=== PATIENT | female | born 1960 | race Caucasian/White ===

== ENCOUNTER 2019-12-13 11:14 | Outpatient (CLI) | payer MEDICARE, SELFPAY ==
--- NOTE | 2019-12-13 11:59 | ECG_ITS ---
Measurements Intervals [place] Rate: 70 P: 73 LA: 135 QRS: 13 QRSD: 94 T: 86 QT: 388 QTc: 420 Interpretive Statements SINUS RHYTHM POSSIBLE LEFT ATRIAL ENLARGEMENT INCOMPLETE RIGHT BUNDLE BRANCH BLOCK BORDERLINE ST-T WAVE ABNORMALITY- ANT/HIGH LAT LEADS BORDERLINE ECG Electronically Signed On 12-13-2019 12:10:20 CDT by Morales Salazar D.O.
[2019-12-13 12:04] LABS: Hematocrit 42.7 % (37.0-47.0); Hemoglobin 14.1 g/dL (12.0-15.0)
[2019-12-13 12:17] LABS: Albumin Level 4.4 g/dL (3.5-5.1); Estimated Glomerular Filt Rate > 60; Glucose 110 mg/dL (65-105)
== END 2019-12-13 11:15 | disposition home or self-care (01) ==
PROVIDERS: Visit Provider Orthopaedic Surgery
DX: Z01.818 Encounter for other preprocedural examination (principal); M75.121 Complete rotator cuff tear or rupture of right shoulder, not specified as traumatic; I10 Essential (primary) hypertension; J44.9 Chronic obstructive pulmonary disease, unspecified
CPT/HCPCS: 36415; 82040; 82565; 82947; 85014; 85018; 93005

== ENCOUNTER 2019-12-31 11:28 | Outpatient (CLI) | payer MEDICARE, SELFPAY ==
[2019-12-31 13:04] LABS: Basophils Absolute Auto 0.1 K/mm3 (0.0-0.1); Basophils Percent Auto 0.7 % (0.2-1.2); Eosinophils Absolute Auto 0.3 K/mm3 (0-0.3); Eosinophils Percent Auto 2.9 % (0-4.4); Hematocrit 42.5 % (37.0-47.0); Hemoglobin 14.3 g/dL (12.0-15.0); Immature Granulocyte Absolute 0.04 K/mm3 (0.00-0.031); Immature Granulocyte Percent A 0.4 % (0-0.5); Lymphocytes Absolute Auto 3.76 K/mm3 (0.9-3.2); Lymphocytes Percent Auto 40.2 % (18.3-44.2); Mean Corpuscular HGB Conc 33.6 g/dl (32-36); Mean Corpuscular Hemoglobin 29.6 pg (26-34); Monocytes Absolute Auto 0.7 K/mm3 (0.1-0.6); Monocytes Percent Auto 7.5 % (2.6-8.5); Neutrophils Absolute Auto 4.5 K/mm3 (1.3-6.7); Neutrophils Percent Auto 48.3 % (45.5-73.1); Platelet Count Result 281 k/mm3 (150-375); Red Blood Count 4.83 M/mm3 (4.2-5.4); Red Cell Distribution Width 12.9 % (11.5-14.5); White Blood Count 9.4 K/mm3 (4.5-10.0)
== END 2019-12-31 11:29 | disposition home or self-care (01) ==
PROVIDERS: PCP Nurse Practitioner; Visit Provider Orthopaedic Surgery
DX: M75.121 Complete rotator cuff tear or rupture of right shoulder, not specified as traumatic (principal)
CPT/HCPCS: 36415; 85025; 87081

== ENCOUNTER 2019-12-31 13:23 | Outpatient (CLI) | payer MEDICARE, SELFPAY ==
--- NOTE | ~2019-12-31 | CT_ITS ---
EXAMINATION: CT shoulder RT wo con DATE: 12/31/2019 13:50 INDICATION: Complete right rotator cuff tear. TECHNIQUE: High resolution computed tomography (CT) of the right shoulder was performed without intra venous contrast. Additional sagittal and coronal reconstructions were performed. Automated exposure c ontrol and iterative reconstruction technique were employed. The dose-length product was 502.51 mGy-c m. COMPARISON: Right shoulder radiographs dated 12/13/2019 FINDINGS: Bone alignment is normal. No fracture. Postoperative change of prior acromioplasty and distal clavicl e resection. Suture anchor site at the intertubercular groove consistent with prior bicipital tenodes is. There is additional likely suture anchor site at the middle facet of the greater tuberosity and a t the lesser tuberosity suggesting prior rotator cuff repair of the infraspinatus and subscapularis t endons. There is some fatty atrophy of the subscapularis muscle belly which could be related to eithe r chronic subscapularis tendon tear or denervation change. Mild glenohumeral osteoarthritis with mild anterior and superior predominant nonuniform joint space narrowing. No evident glenohumeral joint ef fusion. Mild emphysema. IMPRESSION: 1. Postoperative changes at the right shoulder including acromioplasty, distal clavicle resection and likely bicipital tenodesis and rotator cuff repair. Correlate with surgical history. 2. Mild glenohumeral osteoarthritis. 3. Mild emphysema. Reviewed, dictated and finalized at location A. IMPRESSION: 1. Postoperative changes at the right shoulder including acromioplasty, distal clavicle resection and likely bicipital tenodesis and rotator cuff repair. Deniz elate with surgical history. 2. Mild glenohumeral osteoarthritis. 3. Mild emphysema.
== END 2019-12-31 13:24 | disposition home or self-care (01) ==
LOC: ANHIMG 13:25
PROVIDERS: Visit Provider Orthopaedic Surgery
DX: M75.121 Complete rotator cuff tear or rupture of right shoulder, not specified as traumatic (principal); J43.9 Emphysema, unspecified; M19.011 Primary osteoarthritis, right shoulder
CPT/HCPCS: 36415; 73200; 85025; 87081

== ENCOUNTER 2020-01-22 00:48 | Outpatient (CLI) | payer MEDICARE, SELFPAY ==
[2020-01-22 18:04] LABS: SARS-CoV-2 RNA PCR Negative
== END 2020-01-22 00:49 | disposition home or self-care (01) ==
LOC: ANHCOVIDDT 00:48
PROVIDERS: Visit Provider Orthopaedic Surgery
DX: Z01.812 Encounter for preprocedural laboratory examination (principal); Z20.828 Contact with and (suspected) exposure to other viral communicable diseases; M75.121 Complete rotator cuff tear or rupture of right shoulder, not specified as traumatic
CPT/HCPCS: 87635; C9803; U0003

== ENCOUNTER 2020-01-25 11:12 | Inpatient (IN) | payer MEDICARE, SELFPAY ==
[2019-12-31 12:16] VITALS: BMI 31.9
[2019-12-31 12:17] VITALS: BP 102/62; PULSE 84; RESP 16; TEMP 36.6; O2SAT 96
--- NOTE | 2020-01-24 09:10 | WPDANESEPPF ---
Anes - Initial Pre Proc Eval Procedure: Operation Date: 01/25/20 07:30 Proposed Procedures p Right Reverse Total Shoulder Arthroplasty - Eric Lowry MD Date/Time: 01/24/20 09:10 Surgeon: Eric Lowry MD Pre Op Diagnosis: Complete Irrepairable Tear Right Rotator Cuff Patient Data Age: 59 Gender: F Height: 1.63 m Weight: 84.4 kg Last Vital Signs Temp 36.6 C 12/31/19 12:17 Pulse 84 12/31/19 12:17 Resp 16 12/31/19 12:17 BP 102/62 12/31/19 12:17 Pulse Ox 96 12/31/19 12:17 Allergies Allergy/AdvReac Type Severity Reaction Status Date / Time No Known Allergies Allergy Verified 01/12/20 11:22 Home Medications Medication Instructions Recorded Confirmed Type albuterol sulfate 200 mcg capsule 3 mcg INHALATION Q6H 11/03/19 12/31/19 History with inhalation device aspirin 81 mg tablet,delayed 81 mg PO DAILY 11/03/19 12/31/19 History release atorvastatin 10 mg tablet 20 mg PO QPM 11/03/19 12/31/19 History isosorbide mononitrate 30 mg 60 mg PO DAILY 11/03/19 12/31/19 History tablet,extended release 24 hr lysine 500 mg tablet 1,000 mg PO PRN PRN 11/03/19 12/31/19 History metoprolol tartrate 25 mg tablet 50 mg PO DAILY 11/03/19 12/31/19 History montelukast 10 mg tablet 10 mg PO HS 11/03/19 12/31/19 History omeprazole 10 mg capsule,delayed 40 mg PO BID 11/03/19 12/31/19 History release citalopram 20 mg PO DAILY 12/31/19 12/31/19 History duloxetine 30 mg PO QAM 12/31/19 12/31/19 History lisinopril 40 mg PO QAM 12/31/19 12/31/19 History potassium chloride [Klor-Con M20] 20 meq PO DAILY 12/31/19 12/31/19 History tramadol 50 mg tablet 50 mg PO Q8H PRN #30 tablet 01/12/20 01/12/20 Rx Patient hx anesthesia problems: none Family hx anesthesia problems: none PMFSH Past Medical History Medical History (Updated 01/24/20 @ 09:10 by Jarad Spence DO) Anxiety COPD (chronic obstructive pulmonary disease) Depression Hypertension Shoulder pain with history of repair of rotator cuff (~02/27/18) Surgical History Surgical History History of cholecystectomy History of lumpectomy (~2009) Rt Armpit History of shoulder surgery (~02/27/18) Rt Rotator Cuff Repair History of tubal ligation (~1981) Family History Family History Father Lung cancer Social History Social History Smoking packs per day: 3 Smoking cigarettes per day: 60.0 Years smoked: 44 Smoking pack-years: 132.00 Smoking status: Current every day smoker Tobacco type: cigarettes Second hand tobacco smoke exposure: No Additional smoking assessment comments: STATES PAST 3 MONTHS ONLY SMOKES 2-3 CIGARETTES PER DAY Alcohol intake: former Alcohol use details: 5TH WHISKEY EVERYDAY X 7 YRS Living arrangements: with family Spiritual care concerns: No Anes - Eval Final PreProcedure Day of Procedure 01/24/20 09:10 Patient weight: obese Heart: regular rate and rhythm Lungs: clear to auscultation and normal air movement Airway: Mallampati scale class II Neurological: alert and oriented Last oral intake: >/= 8 hours ASA classification: III Emergent: no Anesthetic plan: proceed Anesthesia type and monitoring: general ETT and standard monitoring Informed Consent: The patient's anesthetic plan and its attendant risks and benefits were discussed with the patient/family/POA. Questions were solicited and answers provided to the satisfaction of the patient/family/POA.
--- NOTE | 2020-01-24 09:10 | WPDANESPNB ---
Anes - Peripheral Nerve Block Date/Time: 01/24/20 09:10 I have discussed with the patient/family/POA the placement of a peripheral nerve block for post-operative pain management, including associated risks, benefits, complications, and side effects. Alternative methods of post-operative analgesia were detailed. Questions were solicited and answers provided to the satisfaction of the patient/family/POA. Time-Out: A pre-procedural Time-Out was completed immediately before starting the procedure and confirmed: Patient Identification, Site, Procedure, Patient Position and the Availability of Requisite Equipment. Clinical Indications: Acute post-operative pain management requested by the operative surgeon. Nerve Block Insertion Note Anes-nerve block: interscalene right Patient position: supine Skin prep: chlorhexidine Needle: 22 gauge, stimulating, insulated echogenic needle. Needle length: 50 mm Technique: ultrasound Injectate: bupivacaine 0.5% with epi 5 mcg/ml (30cc) Observations: tolerated well Complications: none
[2020-01-25] VITALS (17 sets, daily range): BP systolic 92–142; BP diastolic 30–81; PULSE 70–85; RESP 16–22; TEMP 36.4–36.9; O2SAT 91–98; BMI 33.7
--- NOTE | ~2020-01-25 | XR_ITS ---
EXAMINATION: XR shoulder RT min 2V DATE: 01/25/2020 10:07 INDICATION: Postoperative evaluation of a right reverse total shoulder arthroplasty TECHNIQUE: AP and transscapular Y views of the right shoulder were obtained. COMPARISON: None FINDINGS: Noncemented right reverse total shoulder arthroplasty which appears well seated in near-anatomic alig nment. No fracture. Chronic widening of the right acromioclavicular joint with likely prior right cla vicle resection. Mild opacities at the right lower lung zone which could represent atelectasis and/or pneumonia. Calcified nodule in the right midlung zone consistent with old granulomatous disease. IMPRESSION: 1. Right reverse total shoulder arthroplasty near-anatomic alignment negative for postoperative purpo ses. 2. Opacities in the right lower lung zone which could represent atelectasis and/or pneumonia. Reviewed, dictated and finalized at location B. IMPRESSION: 1. Right reverse total shoulder arthroplasty near-anatomic alignment negative f or postoperative purposes. 2. Opacities in the right lower lung zone which could represent atelectasis and /or pneumonia.
[2020-01-25] MEDS: ACETAMINOPHEN 500 MG TABLET 1000 MG PO (06:25)
[2020-01-25] MEDS: LACTATED RINGERS 1,000 ML 30 ML IV CONT ×2 (06:30→10:08)
[2020-01-25] MEDS: TRANEXAMIC ACID 1,000MG/ISO100 1,000 MG/100 ML BAG 200 MG IVPB (06:33)
[2020-01-25] MEDS: KETOROLAC 15 MG/ML VIAL (*BKC) IV PUSH (06:33)
--- NOTE | 2020-01-25 07:23 | WPDHPUPDATE1 ---
History and Physical Update Update Date/Time: 01/25/20 07:23 History and Physical has been reviewed, including an updated exam of the patient. There are NO changes in the patient's condition. Risks, benefits, and alternatives have been discussed and questions answered. Patient agrees to proceed with procedure.
[2020-01-25] MEDS: ceFAZolin 2 GM/D5W 50 ML 2 GM/50 ML BAG IVPB (07:27)
--- NOTE | 2020-01-25 08:28 | SUR.OPER ---
1 GM VAN POWDER WAS PUT INTO RIGHT SHOULDER INCISION PER DR BEARDEN DURING SURGERY
--- NOTE | 2020-01-25 09:43 | PM.PROC ---
Procedure Note - Detailed Date of procedure: 01/26/20 Pre-op diagnosis: Complete Irrepairable Tear Right Rotator Cuff Post-op diagnosis: same Procedure performed: Reverse total shoulder arthroplasty. Biceps tenodesis. Description of procedure: The cephalic vein was preserved and retracted medially. A small pectoralis release was performed. Biceps tenodesis was performed. Bone quality was reasonable. The glenoid was quite small. Preferential reaming inferior and slightly anterior was performed to correct based on preoperative templating. 10 degree inferior tilt was added through the guide. The 10 degree lateralize glenoid sphere was utilized. The supraspinatus was clearly damaged and retracted. Significant scar tissue in the bursa was observed. The posterior rotator cuff had some delamination but was otherwise very robust. Humeral retroversion was placed at about 35?. Implants: [employer]/ [employer], reversed II base plate. glenoid sphere, size 36 lateralized. Flex shoulder system reverse tray low offset at 12 o'clock. 6 mm polyethylene reversed insert. Ascend flex standard humeral stem size 3B Anesthesia: GETA and regional Surgeon: Eric Lowry MD Estimated blood loss (mL): 100 Drains: No Pathology: none sent Complications: None Condition: stable Disposition: PACU Findings: OPERATIVE DETAILS: The patient was given an interscalene block in the preoperative area. Preoperative antibiotics were given. The patient was transferred to the operating room and a general anesthetic was administered. The beach chair position was used at 40 degrees. All bony prominences were padded. The head was carefully stabilized on the [employer] head former. A sterile prep and drape was performed in the usual manner with ChloraPrep. A longitudinal incision was created at the anterior shoulder just lateral to the deltopectoral interval. Careful dissection was performed to expose the interval and protect the cephalic vein. The vein was retracted medially. The upper border of the pectoralis was released. Anterior circumflex vessel branches were suture ligated. The biceps was tenotomized and later tenodesed. A subscapularis tenotomy was performed. The inferior capsule was released, exposing the humeral head. Osteophytes were removed. Care was taken to stay on bone to protect the axillary nerve. The anatomic head cut was taken with the oscillating saw. Sounding and broaching was performed. The neck anteversion and inclination were carefully assessed. The cut protector was placed, and attention was turned to the glenoid. Retractors were placed. Releases were carried out for exposure. The subscapularis was mobilized, the inferior capsule and long head of triceps released, and the superior and middle glenohumeral ligaments released as well. Labral tissue was resected as needed. The sizing template was used to assess the baseplate position low on the glenoid. A guide pin was placed. Minimal reaming was used to accomplish a flat surface without violating the subchondral bone. Version was corrected according to preoperative templating. The boss, and central screw were drilled. The real component was screwed into position. Supplemental locking screws were placed superiorly and inferiorly. The glenosphere was impacted into the taper, and secured with the locking screw. The humeral components were trialed. The real humeral stem and tray, and insert were impacted into position. The shoulder was copiously irrigated periodically with pulsatile lavage. The shoulder was reduced and stability confirmed. The biceps tenodesis was incorporated with the pectoralis tendon repair. The deltopectoral space was reapproximated with number 2 Vicryl. The remained tissue was closed with 0 Quill and 2-0 Quill running suture and steri-strips. A sterile dressing and shoulder immobilizer was placed. The patient was transferred to the recovery room.
--- NOTE | 2020-01-25 11:13 | PC.NURSE ---
This patient, Eleanor Patel, was admitted to 2 Medical Room 241-01. Patient/family oriented to hospital policies and general routines including ID bracelet, bed and alarms, visiting hours, pain management, procedures, bathroom and other care routines, personal items, smoking policy, room service/diet, and visiting hours. Information on how to activate the Rapid Response Team has been discussed. Patient/Family are encouraged to report perceived risks to care and to ask questions if they do not understand what they are told or what they should do.
[2020-01-25] MEDS: oxyCODONE HCL (*CRX) 5 MG TAB IR 10 MG PO ×2 (11:38→20:03)
--- NOTE | 2020-01-25 14:38 | PM.IMCN ---
Assessment and Plan Assessment and plan (1) Complete tear of right rotator cuff: Qualifiers: Rotator cuff tear trauma status: nontraumatic Qualified Code(s): M75.121 - Complete rotator cuff tear or rupture of right shoulder, not specified as traumatic Code(s): M75.121 - Complete rotator cuff tear or rupture of right shoulder, not specified as traumatic Status: Acute Assessment and Plan: DVT prophylaxis per ortho.The patient has bilateral TEDs and SCDs. The patient stated that she will probably go home tomorrow. Pain management per Ortho. Postop care per Orthopedics. I did order repeat labs for tomorrow. (2) Anxiety: Code(s): F41.9 - Anxiety disorder, unspecified Status: Chronic Assessment and Plan: The patient appears quite anxious today. I did ask her she needed a nicotine patch and she stated that she would be fine without a patch. She is on Celexa at home. That has been resumed. (3) COPD (chronic obstructive pulmonary disease): Code(s): J44.9 - Chronic obstructive pulmonary disease, unspecified Status: Chronic Assessment and Plan: The patient uses nebulizer machines at home. And it looks like her order is pending for albuterol. May use inhaler for not able to get her a nebulizer machine. Continue with Singulair (4) Depression: Code(s): F32.9 - Major depressive disorder, single episode, unspecified Status: Chronic Assessment and Plan: Continue with Celexa. (5) Hypertension: Code(s): I10 - Essential (primary) hypertension Status: Chronic Assessment and Plan: Continue with her lisinopril and isosorbide and metoprolol. (6) Hyperlipidemia: Code(s): E78.5 - Hyperlipidemia, unspecified Status: Chronic Assessment and Plan: continue with atorvastatin. [facility] Data of Consult Consult date: 01/25/20 Requesting Physician: Eric Lowry MD Primary Care Provider: Briseida Hanson Consult Narrative Narrative: Eleanor Patel is a 59 year old female Who has a history of having 2 surgeries previously on her right shoulder. The patient had a complete irrepairable tear right rotator cuff. She had a reverse total shoulder arthroplasty in by had tendinitis please see Dr. Lowry as operative note. Estimated blood loss was approximately 100. The patient was place and on sling. She has a history of COPD with tobacco use current. The patient is somewhat anxious but is not having any discomfort at this time. The patient is hoping to go home tomorrow. Patient had preop labs and procedures including a cardiac catheterization that she reports as clear. Please see anesthesia note as well as operative report. I thank orthopedic physician for this consultation. Review of Systems Review of Systems: All systems reviewed & are unremarkable except as noted in HPI and below Constitutional: Constitutional: Reports as per HPI and Reports no additional constitutional complaints Eyes: Eyes: Reports as per HPI and Reports no additional eye complaints ENT: Reports system reviewed and no additional complaints, except as documented and Reports Normal hearing present Cardiovascular: Cardiovascular: Reports no additional cardiovascular complaints Respiratory: Respiratory: Reports no additional respiratory complaints and Reports no additional respiratory complaints Gastrointestinal: Gastrointestinal: Reports as per HPI and Reports no additional gastrointestinal complaints Musculoskeletal: Musculoskeletal: Reports no additional musculoskeletal complaints Integumentary/Breasts: Skin/Breast: Reports system reviewed and no additional complaints, except as docu and Reports as per HPI Neurologic: Reports system reviewed and no additional complaints, except as documented, Reports as per HPI and Reports Normal hearing present Psychiatric: Psychiatric: Reports no additional psychiatric complaints and Reports as pe
[2020-01-25] MEDS: DOCUSATE SODIUM 100 MG CAPSULE PO (16:15)
[2020-01-25] MEDS: ATORVASTATIN 20 MG TABLET PO (18:29)
[2020-01-25] MEDS: ALBUTEROL SULFATE NEB 2.5 MG/0.5 ML INH INHALATION (19:35)
[2020-01-25] MEDS: MONTELUKAST SODIUM 10 MG TABLET PO (20:03)
[2020-01-25] MEDS: PANTOPRAZOLE 40 MG TABLET PO (20:04)
[2020-01-26] VITALS (10 sets, daily range): BP systolic 116–124; BP diastolic 64–72; PULSE 71–86; RESP 16–22; TEMP 36.3–37; O2SAT 94–96
[2020-01-26] MEDS: ALBUTEROL SULFATE NEB 2.5 MG/0.5 ML INH INHALATION ×2 (02:27→07:38)
[2020-01-26] MEDS: oxyCODONE HCL (*CRX) 5 MG TAB IR 10 MG PO ×2 (03:41→08:24)
[2020-01-26 05:54] LABS: Basophils Absolute Auto 0.1 K/mm3 (0.0-0.1); Basophils Percent Auto 0.5 % (0.2-1.2); Eosinophils Absolute Auto 0.2 K/mm3 (0-0.3); Eosinophils Percent Auto 1.7 % (0-4.4); Hematocrit 35.7 % (37.0-47.0); Hemoglobin 11.8 g/dL (12.0-15.0); Immature Granulocyte Absolute 0.06 K/mm3 (0.00-0.031); Immature Granulocyte Percent A 0.5 % (0-0.5); Lymphocytes Absolute Auto 2.77 K/mm3 (0.9-3.2); Lymphocytes Percent Auto 22.3 % (18.3-44.2); Mean Corpuscular HGB Conc 33.1 g/dl (32-36); Mean Corpuscular Hemoglobin 29.3 pg (26-34); Mean Corpuscular Volume 88.6 fl (80-100); Mean Platelet Volume 11.5 fl (7.4-10.4); Monocytes Absolute Auto 1.4 K/mm3 (0.1-0.6); Monocytes Percent Auto 11.2 % (2.6-8.5); Neutrophils Percent Auto 63.8 % (45.5-73.1); Platelet Count Result 233 k/mm3 (150-375); Red Blood Count 4.03 M/mm3 (4.2-5.4); Red Cell Distribution Width 13.2 % (11.5-14.5); White Blood Count 12.4 K/mm3 (4.5-10.0)
[2020-01-26 06:09] LABS: Alanine Aminotransferase 15 U/L (4-35); Albumin Level 4.1 g/dL (3.5-5.1); Alkaline Phosphatase 57 U/L (38-126); Anion Gap 6 mmol/L (8-16); Aspartate Amino Transferase 31 U/L (14-36); Bilirubin,Total 0.5 mg/dL (0.2-1.3); Blood Urea Nitrogen 12 mg/dL (7-17); Calcium 8.8 mg/dL (8.4-10.2); Carbon Dioxide 29 mmol/L (22-30); Chloride 100 mmol/L (98-107); Estimated CRCL calculation 81 ml/min; Estimated Glomerular Filt Rate > 60; Glucose 109 mg/dL (65-105); Potassium 3.9 mmol/L (3.4-5.0); Sodium 135 mmol/L (137-145)
--- NOTE | 2020-01-26 07:44 | P.PNAN_ITS ---
Anes - Prog Note Post-Op Date/Time: 01/26/20 07:44 Cardiovascular status: normal Respiratory status: normal Airway patency: baseline Mental status: baseline Post-Op hydration status: normal Vital Signs: Last Vital Signs Temp 97.5 F L 01/26/20 06:00 Pulse 71 01/26/20 07:38 Resp 16 01/26/20 07:38 BP 116/65 01/26/20 06:00 Pulse Ox 94 01/26/20 06:00 Pain Score (VAS): 0/10 I/O: Intake & Output 01/25/20 01/25/20 01/26/20 15:59 23:59 07:59 Intake Total 940 990 640 Output Total 150 1200 Balance 940 840 -560 Laboratory Tests 01/26/20 05:17 01/26/20 05:17 01/25/20 01/26/20 01/26/20 06:25 05:17 05:17 WBC 12.4 H RBC 4.03 L Hgb 11.8 L Hct 35.7 L MCV 88.6 MCH 29.3 MCHC 33.1 RDW 13.2 Plt Count 233 MPV 11.5 H Immature Gran % (Auto) 0.5 Neut % (Auto) 63.8 Lymph % (Auto) 22.3 Chambers % (Auto) 11.2 H Eos % (Auto) 1.7 Baso % (Auto) 0.5 Lymph # (Auto) 2.77 Chambers # (Auto) 1.4 H Eos # (Auto) 0.2 Baso # (Auto) 0.1 Abs Immat Gran (auto) 0.06 H Absolute Neuts (auto) 8.0 H Absolute Nucleated RBC 0.0 Nucleated RBC % 0.0 Sodium 135 L Potassium 3.9 Chloride 100 Carbon Dioxide 29 Anion Gap 6 L BUN 12 Creatinine 0.70 Estim Creat Clear Calc 81 Estimated GFR > 60 Glucose 109 H Calcium 8.8 Total Bilirubin 0.5 AST 31 ALT 15 Alkaline Phosphatase 57 Total Protein 6.0 L Albumin 4.1 Blood Type O Positive Antibody Screen Negative Post-procedural complaints: none Patient Feedback: Patient satisfied with anesthetic care.
[2020-01-26] MEDS: ASPIRIN 81 MG ENTERIC TABLET PO (08:15)
[2020-01-26] MEDS: CITALOPRAM HYDROBROMIDE 20 MG TABLET PO (08:15)
[2020-01-26] MEDS: lisinopriL 20 MG TABLET 40 MG PO (08:15)
[2020-01-26] MEDS: DULoxetine HCL 30 MG CAPSULE.DR PO (08:15)
[2020-01-26] MEDS: METOPROLOL TARTRATE 50 MG TAB PO (08:16)
[2020-01-26] MEDS: POTASSIUM CHLORIDE 20 MEQ TABLET.ER PO (08:16)
[2020-01-26] MEDS: PANTOPRAZOLE 40 MG TABLET PO (08:16)
[2020-01-26] MEDS: ISOSORBIDE MONONITRATE 60 MG TAB.ER.24H PO (08:16)
[2020-01-26] MEDS: DOCUSATE SODIUM 100 MG CAPSULE PO (08:17)
--- NOTE | 2020-01-26 11:35 | PM.DS ---
DS: Admitting Diagnosis Admitting Diagnosis Admitting Diagnosis: Complete Irrepairable Tear Right Rotator Cuff DS: Discharge Diagnosis Discharge Diagnosis (1) Status post reverse total arthroplasty of right shoulder: Code(s): Z96.611 - Presence of right artificial shoulder joint Status: Acute DS: Summary Hospital Course Reason for hospitalization: Total shoulder arthroplasty. Hospital Course: Tolerated surgery well. Progressed appropriately with therapy. Status at Discharge Functional status at discharge: independent ambulation Overall status at discharge: patient is progressing back to baseline Time Spent with Patient Time attestation: Total time spent providing and/or coordinating discharge services: Exam Const: General: no acute distress Resp: Effort & Inspection: normal respiratory effort Skin: Other: Wound healing well. Mepilex dressing intact. No hematoma or drainage. Sling applied appropriately. Deltoid muscle fires. Axillary nerve sensation intact. Good music sound light technician strength. No edema. radial pulse palpable. Neuro: Motor exam (neuro): 5/5 motor strength present throughout Sensory Exam: normal sensation Psych: Mental Status: mental status grossly normal Speech and movement: Normal speech and movement present DS: Data Data Completed and Pending Labs on day of discharge: Labs from last 24 hours 01/26/20 01/26/20 05:17 05:17 WBC 12.4 H RBC 4.03 L Hgb 11.8 L Hct 35.7 L MCV 88.6 MCH 29.3 MCHC 33.1 RDW 13.2 Plt Count 233 MPV 11.5 H Immature Gran % (Auto) 0.5 Neut % (Auto) 63.8 Lymph % (Auto) 22.3 Tillman % (Auto) 11.2 H Eos % (Auto) 1.7 Baso % (Auto) 0.5 Lymph # (Auto) 2.77 Tillman # (Auto) 1.4 H Eos # (Auto) 0.2 Baso # (Auto) 0.1 Abs Immat Gran (auto) 0.06 H Absolute Neuts (auto) 8.0 H Absolute Nucleated RBC 0.0 Nucleated RBC % 0.0 Sodium 135 L Potassium 3.9 Chloride 100 Carbon Dioxide 29 Anion Gap 6 L BUN 12 Creatinine 0.70 Estim Creat Clear Calc 81 Estimated GFR > 60 Glucose 109 H Calcium 8.8 Total Bilirubin 0.5 AST 31 ALT 15 Alkaline Phosphatase 57 Total Protein 6.0 L Albumin 4.1 Discharge Plan Discharge Attending physician on discharge: Eric Lowry Consulting providers: Andrea Ruiz Discharging Clinician: Eric Lowry Patient Disposition: Home, Self-Care Activity: july shower Diet: as tolerated Wound Care Instructions: follow printed instructions Discharge Instructions: See instruction sheet. Patient Instructions: Antibiotic Form, Pain Management in Older Adults (DC), Joint Replacement Surgery (DC), Shoulder Arthroplasty (DC), Non-pharmacological Pain Management Therapies for Adults (GEN) Stand Alone Forms: General Discharge Information Follow-up/Referrals: Eric Lowry MD [Physician] - Discharge Medications: New oxycodone-acetaminophen 5-325 mg tablet 1 - 2 tablet PO Q4-6H MDD 6 tablets PRN (Reason: pain) Qty: 30 RF: 0 Continued albuterol sulfate 200 mcg capsule, w/inhalation device 3 mcg INHALATION Q6H RF: 0 aspirin 81 mg tablet,delayed release (DR/EC) 81 mg PO DAILY RF: 0 atorvastatin 10 mg tablet 20 mg PO QPM RF: 0 isosorbide mononitrate 30 mg tablet extended release 24 hr 60 mg PO DAILY RF: 0 lysine [L-Lysine] 500 mg tablet 1,000 mg PO PRN PRN (Reason: SHINGLES) RF: 0 metoprolol tartrate 25 mg tablet 50 mg PO DAILY RF: 0 montelukast 10 mg tablet 10 mg PO HS RF: 0 omeprazole 10 mg capsule,delayed release(DR/EC) 40 mg PO BID RF: 0 tramadol 50 mg tablet 50 mg PO Q8H PRN (Reason: pain) Qty: 30 RF: 0 citalopram 20 mg Tablet 20 mg PO DAILY RF: 0 lisinopril 40 mg tablet 40 mg PO QAM RF: 0 potassium chloride [Klor-Con M20] 20 mEq Tablet,Er Particles/Crystals 20 meq PO DAILY RF: 0 duloxetine 30 mg capsule,delayed release(DR/EC) 30 mg PO QAM RF: 0 D
--- NOTE | 2020-01-26 13:09 | PM.IMPN ---
Progress Note: A&P Assessment and Plan (1) Complete tear of right rotator cuff: Qualifiers: Rotator cuff tear trauma status: nontraumatic Qualified Code(s): M75.121 - Complete rotator cuff tear or rupture of right shoulder, not specified as traumatic Code(s): M75.121 - Complete rotator cuff tear or rupture of right shoulder, not specified as traumatic Status: Acute Assessment and Plan: DVT prophylaxis per ortho.The patient has bilateral TEDs and SCDs. The patient stated that she will probably go home tomorrow. Pain management per Ortho. Postop care per Orthopedics. I did order repeat labs for tomorrow. 01/26/20 13:09 patient is a 59-year-old female with past history to right shoulder surgery however patient needed corrective surgery this time she was seen by orthopedic surgeon patient had a right shoulder arthroplasty postop day number 1, patient is feeling much better and was seen by her surgeon and ready to be discharged, was seen by PT and had a physical therapy, patient was instructed and several exercises, patient is going to continue his exercises, and patient will be seen by her surgeon on February 08 further recommendation to follow (2) Anxiety: Code(s): F41.9 - Anxiety disorder, unspecified Status: Chronic Assessment and Plan: The patient appears quite anxious today. I did ask her she needed a nicotine patch and she stated that she would be fine without a patch. She is on Celexa at home. That has been resumed. (3) COPD (chronic obstructive pulmonary disease): Code(s): J44.9 - Chronic obstructive pulmonary disease, unspecified Status: Chronic Assessment and Plan: The patient uses nebulizer machines at home. And it looks like her order is pending for albuterol. May use inhaler for not able to get her a nebulizer machine. Continue with Singulair (4) Depression: Code(s): F32.9 - Major depressive disorder, single episode, unspecified Status: Chronic Assessment and Plan: Continue with Celexa. (5) Hypertension: Code(s): I10 - Essential (primary) hypertension Status: Chronic Assessment and Plan: Continue with her lisinopril and isosorbide and metoprolol. (6) Hyperlipidemia: Code(s): E78.5 - Hyperlipidemia, unspecified Status: Chronic Assessment and Plan: continue with atorvastatin. Subjective Date/time seen: 01/26/20 13:09 patient is a 59-year-old female with past history to right shoulder surgery however patient needed corrective surgery this time she was seen by orthopedic surgeon patient had a right shoulder arthroplasty postop day number 1, patient is feeling much better and was seen by her surgeon and ready to be discharged, was seen by PT and had a physical therapy, patient was instructed and several exercises, patient is going to continue his exercises, and patient will be seen by her surgeon on February 08 further recommendation to follow. Exam Narrative: Exam Narrative: moderately obese Patient is comfortable, NAD HEENT: eyes are clear and none icteric LUNGS:CTA HEART: RR S1S2 ABD: BS+, Soft and nontender Lower extremities: no edema MS: right arm in a sling SKIN: nonjaundiced Neuro: grossly intact. Objective Data Vital Signs Vital Signs: Vital Signs - 24 hr 01/25/20 14:00 01/25/20 17:59 01/25/20 19:35 Temperature 97.6 F 97.6 F Pulse Rate 72 84 77 Respiratory Rate 20 18 16 Blood Pressure 104/71 98/55 L Pulse Oximetry 92 91 01/25/20 19:44 01/25/20 20:57 01/25/20 22:00 Temperature 98.1 F 98.1 F Pulse Rate 74 83 83 Respiratory Rate 16 20 20 Blood Pressure 142/69 H 142/69 H Pulse Oximetry 95 95 01/26/20 00:57 01/26/20 02:28 01/26/20 02:34 Temperature 98.6 F Pulse Rate 72 86 72 Respiratory Rate 20 16 18 Blood Pressure 124/72 Pulse Oximetry 95 01/26/20 04:57 01/26/20 06:00 01/26/20 07:38 Temperature 97.5 F L 97.5 F L Pul
--- NOTE | 2020-01-28 10:48 | PCPTNOTE ---
During the PT treatment on 01/26/2020 the spouse of the patient passed out and fell onto the floor. The fall was witnessed by me, Kenna Wright, and nursing was called to the room immediately. The patient stated he never lost consciousness and just got too hot. He was encouraged to go to ER but refused. Fall report was submitted by charge nurse Shima Gonzalez.
== END 2020-01-26 12:55 | disposition home or self-care (01) | DRG 483 ==
PROVIDERS: Nurse Practitioner; Admitting Provider Orthopaedic Surgery; Visit Provider Orthopaedic Surgery
PROC: 0RRJ00Z Replacement of Right Shoulder Joint with Reverse Ball and Socket Synthetic Substitute, Open Approach (ICD-10-PCS; CPT 23472; principal; 2020-01-25 07:30)
DX: M75.121 Complete rotator cuff tear or rupture of right shoulder, not specified as traumatic (principal); J44.9 Chronic obstructive pulmonary disease, unspecified; F41.8 Other specified anxiety disorders; E78.5 Hyperlipidemia, unspecified; I10 Essential (primary) hypertension; E66.9 Obesity, unspecified; F17.210 Nicotine dependence, cigarettes, uncomplicated; Z68.33 Body mass index [BMI] 33.0-33.9, adult; Z90.49 Acquired absence of other specified parts of digestive tract; Z66 Do not resuscitate
CPT/HCPCS: 36415; 73030; 80053; 85025; 86850; 86900; 86901; 87635; 94640; 97110; 97161; 97165; A4565; A9270; C1776; C9803; J0131; J0171; J0690; J1100; J1885; J2250; J2270; J2370; J2405; J2704; J2710; J2795; J3010; J3370; J7120; U0003

== ENCOUNTER 2022-07-11 00:51 | Day surgery (SDC) | payer MEDICARE, MEDICAID, SELFPAY ==
[2022-07-04 12:33] VITALS: BMI 27.4
--- NOTE | 2022-07-04 12:42 | PC.NURSE ---
Report to the Outpatient Waiting Room, entrance under the green pavilion located off [facility], at time 0630 on date 07/11/22. Planned Procedure Time: 0830. Time changes happen often and if your time is changed the preop area will call you the afternoon before. - You and your visitor will be asked to self-screen and do not enter if you have any COVID symptoms. - Only one visitor is requested with a max of two and NO children visitors are allowed at this time. - The patient visitor may be requested to leave or wait in car when not with patient due to distancing restrictions. - A mask is optional within the hospital at this time. Patients may have clear liquids (water, carbonated beverages, clear teas, apple juice) until 3 hours prior to surgery with a maximum of 20 ounces. - No food from midnight until time of surgery Take the following medications with a SIP of water the morning of surgery: CITALOPRAM, DULOXETINE, METOPROLOL, ISOSORBIDE DO NOT STOP ANY OF YOUR OTHER PRESCRIPTION MEDICATIONS PRIOR TO SURGERY EXCEPT THE FOLLOWING Medications to discontinue per physician: N/A Date to take last dose: N/A Please no make-up, nail italian, hairspray, perfume, deodorant, or body powder the day of surgery. No jewelry (including any body piercings) or valuables the day of surgery, leave them at home. Please take a shower or bath the night before, or the morning of, surgery with an antibacterial soap. Wear comfortable, loose fitting clothing. - Jewelry must be removed prior to entering the operating room. Rings and piercings that are not removed may be cut off. - The hospital will not accept responsibility for valuables. - Please leave all valuables, including medications, at home the day of surgery. If you are going home after surgery, a licensed line driver must drive you home. - NO public transportation without another adult if you receive anesthesia. - We recommend that an adult stay with you for 24 hours following discharge. - We also recommend that you do not drive, make important decision, drink alcoholic beverages, or take any drugs that were not prescribed by your health care provider for at least 24 hours after your discharge time. Follow any additional instructions given to you from your surgeon. If you or anyone in your household have experienced Covid symptoms in the past week, please notify your surgeon or the nurse liaison at the phone number below for possible testing. Telephone instructions given to ROSIBEL VALDEZ and asked if any additional questions and then verbalized understanding. Patient advised to call surgeon office or pre surgery nurse liaison [phone] if any additional questions.
--- NOTE | 2022-07-10 14:59 | WPDANESEPPF ---
Anes - Initial Pre Proc Eval Procedure: Operation Date: 07/11/22 08:30 Proposed Procedures p Left Shoulder Arthroscopy, with Distal Clavicle Excision - Gabriele Perera MD Date/Time: 07/10/22 14:59 Surgeon: Gabriele Perera MD Pre Op Diagnosis: left shoulder pain Patient Data Age: 62 Gender: F Height: 1.63 m Weight: 72.6 kg Allergies Allergy/AdvReac Type Severity Reaction Status Date / Time No Known Allergies Allergy Verified 07/04/22 12:32 Home Medications Medication Instructions Recorded Confirmed Type atorvastatin 10 mg tablet 20 mg PO QPM 11/03/19 07/04/22 History isosorbide mononitrate 30 mg 60 mg PO DAILY 11/03/19 07/04/22 History tablet,extended release 24 hr lysine 500 mg tablet (L-Lysine) 1,000 mg PO PRN PRN SHINGLES 11/03/19 07/04/22 History metoprolol tartrate 25 mg tablet 50 mg PO DAILY 11/03/19 07/04/22 History montelukast 10 mg tablet 10 mg PO HS 11/03/19 07/04/22 History omeprazole 10 mg capsule,delayed 40 mg PO BID 11/03/19 07/04/22 History release citalopram 20 mg tablet 20 mg PO DAILY 12/31/19 07/04/22 History duloxetine 30 mg capsule,delayed 30 mg PO QAM 12/31/19 07/04/22 History release lisinopril 40 mg tablet 40 mg PO QAM 12/31/19 07/04/22 History potassium chloride 20 mEq 20 meq PO DAILY 12/31/19 07/04/22 History tablet,extended release(part/cryst) (Klor-Con M) ECG: Date of Service: 12/13/19 Procedure(s): CA 12 lead EKG Accession Number(s): [id number] cc: ~ ? Measurements Intervals? [employer]? Rate: ? 70 ? P:? 73 DC: ? 135? QRS:? 13 QRSD: ? 94 ? T:? 86 QT: ? 388? QTc:? 420? Interpretive Statements SINUS RHYTHM POSSIBLE LEFT ATRIAL ENLARGEMENT INCOMPLETE RIGHT BUNDLE BRANCH BLOCK BORDERLINE ST-T WAVE ABNORMALITY- ANT/HIGH LAT LEADS BORDERLINE ECG Electronically Signed On 12-13-2019 12:10:20 CDT by Morales Salazar D.O. Patient hx anesthesia problems: none Family hx anesthesia problems: none Results Review: All pre-operative results and documents have been reviewed as part of the pre-operative evaluation. [facility] Past Medical History Medical History (Updated 07/10/22 @ 15:00 by Chuck Bush MD) Anxiety Asthma COPD (chronic obstructive pulmonary disease) Depression Hyperlipidemia Hypertension Overweight (BMI 25.0-29.9) Shoulder pain with history of repair of rotator cuff (~02/27/18) SI joint arthritis Uterine cancer Surgical History Surgical History H/O cervical biopsy History of appendectomy History of cholecystectomy History of lumpectomy (~2009) Rt Armpit History of rectal polypectomy History of shoulder surgery (~02/27/18) Rt Rotator Cuff Repair X3 for the last 1 being today 01/25/2020 History of tubal ligation (~1981) Hx of cataract surgery Status post reverse total arthroplasty of right shoulder Family History Family History Father Lung cancer Sibling No problems noted. Mother Depression Social History Social History Social History: the patient tells me that she smokes a half a pack a cigarettes a day but can go weeks without smoking 1. The patient stated that she used to drink heavily at least 3 or 4 drinks for more times a week. But she tells me she no longer drinks alcohol. The patient denies any illicit drugs. Her is a durable power employment attorney for healthcare. The patient is listed as a full code and stated that she had informed them that she was to be a DNR. Patient has 4 children. And 2 step children. She rescues animals. She has 4 dogs and adult cat and 3 bird
[2022-07-11] VITALS (10 sets, daily range): BP systolic 114–157; BP diastolic 63–89; PULSE 58–65; RESP 14–20; TEMP 36.3–37; O2SAT 92–100
[2022-07-11] MEDS: KETOROLAC 15 MG/ML VIAL (*BKC) IV PUSH (07:15)
[2022-07-11] MEDS: ACETAMINOPHEN 500 MG TABLET 1000 MG PO (07:15)
[2022-07-11] MEDS: LACTATED RINGERS 1,000 ML 30 ML IV CONT ×2 (07:15→09:46)
--- NOTE | 2022-07-11 07:17 | WPDHPUPDATE1 ---
History and Physical Update Update Date/Time: 07/11/22 07:17 History and Physical has been reviewed, including an updated exam of the patient. There are NO changes in the patient's condition. Risks, benefits, and alternatives have been discussed and questions answered. Patient agrees to proceed with procedure.
[2022-07-11] MEDS: ceFAZolin 2 GM/D5W 50 ML 2 GM/50 ML BAG IVPB (08:20)
--- NOTE | 2022-07-11 09:38 | P.OP_ITS ---
Procedure Note - Detailed Date of Procedure 07/11/22 Pre-op Diagnosis 1. Left Shoulder Biceps Tendonitis 2. Left Shoulder AC Joint Arthritis 3. Left Shoulder Subacromial Impingement 4. Left Shoulder Subacromial Bursitis Post-op Diagnosis Same Procedure Performed 1. Left Shoulder Biceps Tenotomy 2. Left Shoulder Distal Clavicle Excision 3. Left Shoulder Subacromial Decompression 4. Left Shoulder Subacromial Debridement Extensive Surgeon Gabriele Perera MD Master [employer] Belt Phil Anesthesia General and Regional Indications 62 yr old female with recalcitrant Left Shoulder pain, with only temporary pain relief with cortisone injections. Findings Left Shoulder Biceps instability with tendonitis Left Shoulder AC Joint arthritis left Shoulder subacromial bursitis left shoulder impingement with Acromial spurr Description of Procedure After Left Inter-scalene block performed by anesthesia team, patient taken to OR, general anesthesia performed. Positioning: Beach Chair with all prominences padded. Left Shoulder prepped and draped in the standard sterile fashion. Time Out to verify correct patient, procedure, laterality and anti-biotics. Standard 3 arthroscopic portals created. I first entered into the GH joint space. - Some partial cartilage loss noted over both the glenoid and the humeral head. - biceps tendon was frayed and unstable. - partial tear noted with the supraspinatus but no Full thickness tear identified. BICEPS TENOTOMY - biceps tenotomy performed with a scissors and bovie cautery I then entered into the subacromial space. - confirmed no Full thickness rotator cuff tear SUBACROMIAL DEBRIDEMENT - exuberant subacromial bursal inflammation noted - visibility of this space was very poor. - extensive subacromial debridement performed including removal of the entire subacromial bursal tissue. SUBACROMIAL DECOMPRESSION - a very large subacromial bone spurr was identified - subacromial decompression performed with a jose luis removing 8 mm of bone from the undersurface and lateral aspect of the acromium. DISTAL CLAVICLE EXCISSION - degenerative changes noted over the distal clavicle - arthroscopic jose luis used to remove 7mm of bone over the distal clavicle anterior to posterior. - excellent visualization of the posterior superior aspect of the distal clavicle. Closure - 2-0 vicryl in the dermal layer - steri strips on skin - 40mg of kenalog with 1% lidocain injected into the joint after closure No complications Patient transferred to recorvery room in stable condition Estimated Blood Loss 10 Complications No immediate complications Condition Stable Disposition PACU
[2022-07-11] MEDS: LIDO 1%/EPINEPHRINE 1:100,000 50 ML VIAL 10 ML INFILTRATE (09:59)
[2022-07-11] MEDS: fentaNYL CITRATE INJ (*CRX) 100 MCG/2 ML VIAL 25 MCG IV PUSH ×4 (10:52→11:08)
== END 2022-07-11 12:20 | disposition home or self-care (01) ==
PROVIDERS: Visit Provider Orthopaedic Surgery
PROC: (CPT 29805; principal; 2022-07-11 08:30)
DX: M75.22 Bicipital tendinitis, left shoulder (principal); M75.42 Impingement syndrome of left shoulder; M19.012 Primary osteoarthritis, left shoulder; M75.52 Bursitis of left shoulder; J44.9 Chronic obstructive pulmonary disease, unspecified; I10 Essential (primary) hypertension; E78.5 Hyperlipidemia, unspecified; F41.9 Anxiety disorder, unspecified; F32.A Depression, unspecified; F17.210 Nicotine dependence, cigarettes, uncomplicated
CPT/HCPCS: 29824; A9270; J0690; J1100; J1885; J2250; J2370; J2405; J2704; J2710; J3010; J3301; J7120

== ENCOUNTER 2025-01-14 09:16 | Outpatient (CLI) | payer OTHER, SELFPAY ==
--- NOTE | ~2025-01-14 | XR_ITS ---
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 Findings: No acute fracture or malalignment. Arthroplasty intact Soft tissues unremarkable. Impression: No acute fracture or malalignment. Reviewed, dictated and finalized at location P. Impression: No acute fracture or malalignment.
--- OUTSIDE RECORDS SUMMARY | 2025-01-14 09:46 | XMS_ITS | Encounter Summary ---
Author Organization [facility] Address [address] [place] [address] Care Team Providers Care Promotion Writer Name Role Phone Unavailable Primary Care Provider Unavailabl e Encounter Details Date Type Department Care Team (Late st Contact Info) Description 01/04/2024 Lab Requisition [facility] Laboratory Services [address] [place] [address] [place] [address] [place] [address] Social History Tobacco Use Types Packs/Day Years Used Date Smoking Tobacco: Never Assessed Comments Unknown Sex and Gender Information Value Date Recorded Sex Assigned at Not on file Legal Sex Female 9:57 PM CDT Gender Identity Not on file Sexual Orientation Not on file documented as of this encounter Plan of Treatment Not on file documented as of this encounter Procedures Procedure Name Priority Date/Time Associated Diagnosis Comments VANCOMYCIN LEVEL TROUGH Routine 01/04/2024 8:15 PM CDT documented in this encounter Results * (ABNORMAL) VANCOMYCIN LEVEL TROUGH (01/04/2024 8:15 PM CDT) VANCOMYCIN, TROUGH 22.0(H) 10.0 - 17.0 ug/mL 01/04/2024 11:42 PM CDT [facility] Blood Collection / Unknown 01/04/2024 8:15 PM CDT 01/04/2024 11:07 PM CDT us Brianda Leblanc MD CHEMISTRY ORDERABLES Final Resul t [facility] CLIA# [id number] [place] [address] documented in this encounter Visit Diagnoses Not on filedocumented in this encounter
--- OUTSIDE RECORDS SUMMARY | 2025-01-14 09:46 | XMS_ITS | Encounter Summary ---
Author Organization [facility] Address [address] [place] [address] Care Team Providers Care Product Director Name Role Phone Unavailable Primary Care Provider Unavailabl e Encounter Details Date Type Department Care Team (Late st Contact Info) Description 01/04/[address] [facility] Laboratory Services [address] [place] [address] [place] [address] [place] [address] Social History Tobacco Use Types [...] Procedure Name Priority Date/Time Associated Diagnosis Comments EXTRA TUBE (GREEN) Routine 01/04/2024 2: 12 AM CDT HEMOGLOBIN AND HEMATOCRIT Routine 01/04/2024 2:12 AM CDT documented in this encounter Results * EXTRA TUBE (GREEN) (01/04/2024 2:12 AM CDT) Blood Collection / Unknown 01/04/2024 2:12 AM CDT 01/04/2024 8:33 AM CDT Brianda Leblanc MD CHEMISTRY ORDERABLES Final Resul t [facility] CLIA# [id number] [place] [address] * (ABNORMAL) HEMOGLOBIN AND HEMATOCRIT (01/04/2024 2:12 AM CDT) HEMOGLOBIN 8.0(L) 11.8 - 14.8 g/dL 01/04/2024 8:52 AM CDT [facility] Comment:No clot , pt receive d blood HEMATOCRIT 24.7(L) 35.5 - 44.0 % 01/04/2024 8:52 AM CDT [facility] Blood Collection / Unknown 01/04/2024 2:12 AM CDT 01/04/2024 8:33 AM CDT us Brianda Leblanc MD HEMATOLOGY ORDERABLES Final Resu lt [facility] [employer] [facility] CLIA# [id number] [address] [place] [address] documented in this encounter Visit Diagnoses Not on filedocumented in this encounter
--- OUTSIDE RECORDS SUMMARY | 2025-01-14 09:46 | XMS_ITS | Encounter Summary ---
Author Organization [facility] Address [address] [place] [address] Care Team Providers Care Cad Intern Name Role Phone Unavailable Primary Care Provider Unavailabl e Encounter Details Date Type Department Care Team (Late st Contact Info) Description 12/27/2023 Lab Requisition [facility] Laboratory Services [address] [place] [address] [place] [address] [place] [address] Social History Tobacco Use Types [...] Procedure Name Priority Date/Time Associated Diagnosis Comments CBC WITH DIFFERENTIAL Routine 12/27/2023 5:50 AM CDT PTT Routine 12/27/2023 5:50 AM CDT PROTIME-INR Routine 12/27/2023 5:50 AM CDT COMPREHENSIVE METABOLIC PANEL Routine 12/27/2023 5:50 AM CDT documented in this encounter Results * PTT (12/27/2023 5:50 AM CDT) PTT 32.7 23.1 - 37.1 seconds 12/27/2023 9:05 AM CDT [facility] Blood Collection / Unknown 12/27/2023 5:50 AM CDT 12/27/2023 7:57 AM CDT Brianda Leblanc MD HEMATOLOGY ORDERABLES Final Resu lt [facility] CLIA# [id number] [address] [place] [address] * PROTIME-INR (12/27/2023 5:50 AM CDT) Pathologist [facility] PROTIME 14.7 11.5 - 14.7 Seconds 12/27/2023 9:05 AM CDT [facility] [employer] [facility] INR 1.1 0.9 - 1.1 12/27/2023 9:05 AM CDT [facility] [employer] [facility] Blood Collection / Unknown 12/27/2023 5:50 AM CDT 12/27/2023 7:57 AM CDT Brianda Leblanc MD HEMATOLOGY ORDERABLES Final Resu lt [facility] [employer] [facility] CLIA# [id number] [address] [place] [address] * (ABNORMAL) CBC WITH DIFFERENTIAL (12/27/2023 5:50 AM CDT) WBC 9.2 4.5 - 10.5 K/uL 12/27/2023 8:50 AM CDT [facility] [employer] [facility] RBC 2.82(L) 3.90 - 4.90 M/uL 12/27/2023 8:50 AM CDT [facility] [employer] [facility] HEMOGLOBIN 7.9(L) 11.8 - 14.8 g/dL 12/27/2023 8:50 AM CDT [facility] [employer] [facility] HEMATOCRIT 24.4(L) 35.5 - 44.0 % 12/27/2023 8:50 AM CDT [facility] [employer] [facility] MCV 86.7 82.0 - 99.0 fL 12/27/2023 8:50 AM CDT [facility] [employer] [facility] MCH 27.9 27.8 - 34.5 pg 12/27/2023 8:50 AM CDT [facility] MCHC 32.2(L) 32.5 - 35.5 g/dL 12/27/2023 8:50 AM CDT [facility] RDW 15.6(H) 11.5 - 14.5 % 12/27/2023 8:50 AM CDT [facility] PLATELETS 271 160 - 420 K/uL 12/27/2023 8:50 AM CDT [facility] MPV 10.3 8.7 - 12.7 fL 12/27/2023 8:50 AM CDT [facility] NEUTROPHILS 75 % 12/27/2023 8:50 AM CDT [facility] LYMPHOCYTES 13 % 12/27/2023 8:50 AM CDT [facility] MONOCYTES 7 % 12/27/2023 8:50 AM CDT [facility] EOSINOPHILS 4 % 12/27/2023 8:50 AM CDT [facility] BASOPHILS 1 % 12/27/2023 8:50 AM CDT [facility] NEUTROPHIL ABSOLUTE 7.00 1.90 - 7.00 K/uL 12/27/2023 8:50 AM CDT [facility] LYMPHOCYTE ABSOLUTE 1.20 0.70 - 4.50 K/uL 12/27/2023 8:50 AM CDT [facility] MONOCYTE ABSOLUTE 0.60 0.10 - 1.30 K/uL 12/27/2023 8:50 AM CDT [facility] EOSINOPHIL ABSOLUTE 0.40 0.00 - 0.70 K/uL 12/27/2023 8:50 AM CDT [facility] BASOPHILS ABSOLUTE 0.10 0.00 - 0.20 K/uL 12/27/2023 8:50 AM CDT [facility] Blood Collection / Unknown 12/27/2023 5:50 AM CDT 12/27/2023 7:57 AM CDT us Sreenu Ada MD HEMATOLOGY ORDERABLES Final Resu lt [facility] CLIA# [id number] [address] [place] [address] * (ABNORMAL) COMPREHENSIVE METABOLIC PANEL (12/27/2023 5:50 AM CDT) SODIUM 142 136 - 145 mmol/L 12/27/2023 9:10 AM T [facility] POTASSIUM 3.1(L) 3.4 - 5.1 mmol/L 12/27/2023 9:10 AM T [facility] CHLORIDE 105 98 - 107 mmol/L 12/27/2023 9:10 AM T [facility] CO2 24 22 - 29 mmol/L 12/27/2023 9:10 AM [facility] CALCIUM 8.4(L) 8.6 - 10.4 mg/dL 12/27/2023 9:10 AM T [facility] BUN 23(H) 6 - 20 mg/dL 12/27/2023 9:10 AM T [facility] CREATININE 0.68 0.51 - 0.95 mg/dL 12/27/2023 9:10 AM [facility] GLUCOSE 109(H) 74 - 99 mg/dL 12/27/2023 9:10 AM T [facility] TOTAL PROTEIN 6.0(L) 6.3 - 8.7 g/dL 12/27/2023 9:10 AM T [facility] ALBUMIN 2.3(L) 3.5 - 5.2 g/dL 12/27/2023 9:10 AM T [facility] BILIRUBIN TOTAL <0.2(L) 0.2 - 1.1 mg/dL 12/27/2023 9:10 AM T [facility] ALKALINE PHOSPHATASE 87 40 - 150 U/L 12/27/2023 9:10 AM T [facility] AST 21 0 - 33 U/L 12/27/2023 9:10 AM CDT [facility] ALT 22 0 - 33 U/L 12/27/2023 9:10 AM T [facility] GFR >60 >=60 mL/min/1.7 3 sq meter 12/27/2023 9:10 AM T [facility] Comment:eGFR calculated with 2020 CKD-EPI equation. Vegetarian diet, extremely high or low muscle mass, and may affect results. Cystatin C with Glomerular Filtration Rate is a suitable alternative for these patients. ANION GAP 13 8 - 16 mmol/L 12/27/2023 9:10 AM T [facility] Blood Collection / Unknown 12/27/2023 5:50 AM CDT 12/27/2023 7:57 AM CDT Brianda Leblanc MD CHEMISTRY ORDERABLES Final Resul t [facility] CLIA# [id number] [place] [address] documented in this encounter Visit Diagnoses Not on filedocumented in this encounter
--- OUTSIDE RECORDS SUMMARY | 2025-01-14 09:46 | XMS_ITS | Encounter Summary ---
Author Organization [facility] Address [address] [place] [address] Care Team Providers Care Glass Tinter Name Role Phone Unavailable Primary Care Provider Unavailabl e Encounter Details Date Type Department Care Team (Late st Contact Info) Description 01/03/2024 Lab Requisition [facility] Laboratory Services [address] [place] [address] [place] [address] [place] [address] Social History Tobacco Use Types [...] Procedure Name Priority Date/Time Associated Diagnosis Comments PREPARE RED BLOOD CELLS Routine 01/03/2024 8:39 AM CDT TYPE AND SCREEN Routine 01/03/2024 8:39 AM CDT documented in this encounter Results * PREPARE RED BLOOD CELLS (01/03/2024 8:39 AM CDT) COMPONENT TYPE [id number] [facility] COMPONENT IDENTIFICATION [id number] [facility] ABO O [facility] - [facility] RH POS [facility] - [facility] CROSSMATCH Compatible [facility] COMPONENT STATUS Transfused ME [facility] LABORATORY SERVICES - [facility] COMPONENT EXPIRATION DATE/TIME [id number] [facility] LABORATORY [facility] COMPONENT CODING SYSTEM [address] [facility] VOLUME, BLOOD PRODUCT [address] [facility] 01/03/2024 8:39 AM CDT Brianda Leblanc MD LAB TRANSFUSION ORDERABLES Edite d Result - Final [facility] CLIA# [id number] [place], [place] [id number] * TYPE AND SCREEN (01/03/2024 8:39 AM CDT) ABO GROUP O 01/03/2024 2:21 PM CDT [facility] RH (D) TYPE Positive 01/03/2024 2:21 PM CDT [facility] ANTIBODY SCREEN Negative 01/03/2024 2:21 PM CDT [facility] Blood Collection / Unknown 01/03/2024 8:39 AM CDT 01/03/2024 1:29 PM CDT Brianda Leblanc MD BLOOD BANK ORDERABLES Edited Res ult - Final [facility] CLIA# [id number] [place] [address] documented in this encounter Visit Diagnoses Not on filedocumented in this encounter
--- OUTSIDE RECORDS SUMMARY | 2025-01-14 09:46 | XMS_ITS | Encounter Summary ---
Author Organization [facility] Address [address] [place] [address] Care Team Providers Care Mechanical Engineering Lecturer Name Role Phone Unavailable Primary Care Provider Unavailabl e Encounter Details Date Type Department Care Team (Late st Contact Info) Description 12/31/2023 Lab Requisition [facility] Laboratory Services [address] [place] [address] [place] [address] [place] [address] Social History Tobacco Use Types [...] Associated Diagnosis Comments CBC WITH DIFFERENTIAL Routine 12/31/2023 5:30 AM CDT BASIC METABOLIC PANEL Routine 12/31/2023 5:30 AM CDT documented in this encounter Results * (ABNORMAL) BASIC METABOLIC PANEL (12/31/2023 5:30 AM CDT) SODIUM 136 136 - 145 mmol/L 12/31/2023 12:38 PM CDT [facility] LAB[facility]ATORY SERVICES - [facility] POTASSIUM 3.8 3.4 - 5.1 mmol/L 12/31/2023 12:38 PM CDT [facility] - [facility] CHLORIDE 98 98 - 107 mmol/L 12/31/2023 12:38 PM CDT [facility] - [facility] CO2 26 22 - 29 mmol/L 12/31/2023 12:38 PM CDT [facility] CALCIUM 8.8 8.6 - 10.4 mg/dL 12/31/2023 12:38 PM CDT [facility] BUN 17 6 - 20 mg/dL 12/31/2023 12:38 PM T [facility] CREATININE 0.64 0.51 - 0.95 mg/dL 12/31/2023 12:38 PM CDT [facility] GLUCOSE 138(H) 74 - 99 mg/dL 12/31/2023 12:38 PM CDT [facility] GFR >60 >=60 mL/min/1.7 3 sq meter 12/31/2023 12:38 PM T [facility] Comment:eGFR calculated with 2020 CKD-EPI equation. Vegetarian diet, extremely high or low muscle mass, and may affect results. Cystatin C with Glomerular Filtration Rate is a suitable alternative for these patients. ANION GAP 12 8 - 16 mmol/L 12/31/2023 12:38 PM T [facility] Blood Collection / Unknown 12/31/2023 5:30 AM CDT 12/31/2023 12:00 PM CDT Brianda Leblanc MD CHEMISTRY ORDERABLES Final Resul t [facility] CLIA# [id number] [place] [address] * (ABNORMAL) CBC WITH DIFFERENTIAL (12/31/2023 5:30 AM CDT) WBC 9.9 4.5 - 10.5 K/uL 12/31/2023 12:11 PM CDT [facility] RBC 2.65(L) 3.90 - 4.90 M/uL 12/31/2023 12:11 PM CDT [facility] HEMOGLOBIN 7.4(L) 11.8 - 14.8 g/dL 12/31/2023 12:11 PM CDT [facility] HEMATOCRIT 22.4(L) 35.5 - 44.0 % 12/31/2023 12:11 PM CDT [facility] LABORATORY SERVICES [facility] MCV 84.5 82.0 - 99.0 fL 12/31/2023 12:11 PM CDT [facility] - [facility] MCH 28.1 27.8 - 34.5 pg 12/31/2023 12:11 PM CDT [facility] SERVICES [facility] MCHC 33.3 32.5 - 35.5 g/dL 12/31/2023 12:11 PM CDT [facility] SERVICES [facility] RDW 15.3(H) 11.5 - 14.5 % 12/31/2023 12:11 PM CDT [facility] - [facility] PLATELETS 275 160 - 420 K/uL 12/31/2023 12:11 PM CDT [facility] SERVICES [facility] MPV 10.6 8.7 - 12.7 fL 12/31/2023 12:11 PM CDT [facility] NEUTROPHILS 75 % 12/31/2023 12:11 PM CDT [facility] LYMPHOCYTES 14 % 12/31/2023 12:11 PM CDT [facility] SERVICES [facility] MONOCYTES 6 % 12/31/2023 12:11 PM CDT [facility] EOSINOPHILS 5 % 12/31/2023 12:11 PM CDT [facility] BASOPHILS 1 % 12/31/2023 12:11 PM CDT [facility] SERVICES [facility] NEUTROPHIL ABSOLUTE 7.40(H) 1.90 - 7.00 K/uL 12/31/2023 12:11 PM CDT [facility] SERVICES [facility] LYMPHOCYTE ABSOLUTE 1.40 0.70 - 4.50 K/uL 12/31/2023 12:11 PM CDT [facility] SERVICES [facility] MONOCYTE ABSOLUTE 0.60 0.10 - 1.30 K/uL 12/31/2023 12:11 PM CDT [facility] SERVICES [facility] EOSINOPHIL ABSOLUTE 0.40 0.00 - 0.70 K/uL 12/31/2023 12:11 PM CDT [facility] SERVICES [facility] BASOPHILS ABSOLUTE 0.10 0.00 - 0.20 K/uL 12/31/2023 12:11 PM CDT [facility] Blood Collection / Unknown 12/31/2023 5:30 AM CDT 12/31/2023 12:00 PM CDT us Brianda Leblanc MD HEMATOLOGY ORDERABLES Final Resu lt [facility] SERVICES [facility] CLIA# [id number] [address] [place] [address] documented in this encounter Visit Diagnoses Not on filedocumented in this encounter
--- OUTSIDE RECORDS SUMMARY | 2025-01-14 09:46 | XMS_ITS | Encounter Summary ---
Author Organization [facility] Address [address] [place] [address] Care Team Providers Care Tax Examiner Name Role Phone Unavailable Primary Care Provider Unavailabl e Encounter Details Date Type Department Care Team (Late st Contact Info) Description 01/05/2024 Lab Requisition [facility] Laboratory Services [address] [place] [address] [place] [address] [place] [address] Social History Tobacco Use Types [...] Associated Diagnosis Comments CBC WITH DIFFERENTIAL Routine 01/05/2024 3:08 AM CDT BASIC METABOLIC PANEL Routine 01/05/2024 3:08 AM CDT documented in this encounter Results * (ABNORMAL) CBC WITH DIFFERENTIAL (01/05/2024 3:08 AM CDT) Pathologist [facility] WBC 9.6 4.5 - 10.5 K/uL 01/05/2024 7:13 AM CDT [facility] LABORATORY SERVICES - [facility] RBC 3.08(L) 3.90 - 4.90 M/uL 01/05/2024 7:13 AM CDT [facility] LABORATORY [facility] HEMOGLOBIN 8.7(L) 11.8 - 14.8 g/dL 01/05/2024 7:13 AM CDT [facility] LABORATORY [facility] - [facility] HEMATOCRIT 26.7(L) 35.5 - 44.0 % 01/05/2024 7:13 AM CDT [facility] LABORATORY SERVICES [facility] MCV 86.9 82.0 - 99.0 fL 01/05/2024 7:13 AM CDT [facility] LABORATORY SERVICES [facility] MCH 28.3 27.8 - 34.5 pg 01/05/2024 7:13 AM CDT [facility] LABORATORY SERVICES [facility] MCHC 32.5 32.5 - 35.5 g/dL 01/05/2024 7:13 AM CDT [facility] LABORATORY SERVICES [facility] RDW 15.4(H) 11.5 - 14.5 % 01/05/2024 7:13 AM CDT [facility]ORATORY SERVICES - [facility] PLATELETS 342 160 - 420 K/uL 01/05/2024 7:13 AM CDT [facility] LABORATORY SERVICES [facility] MPV 10.5 8.7 - 12.7 fL 01/05/2024 7:13 AM CDT [facility] LABORATORY SERVICES [facility] NEUTROPHILS 76 % 01/05/2024 7:13 AM CDT [facility] LABORATORY SERVICES [facility] LYMPHOCYTES 13 % 01/05/2024 7:13 AM CDT [facility]ORATORY SERVICES [facility] MONOCYTES 8 % 01/05/2024 7:13 AM CDT [facility]ORATORY SERVICES [facility] EOSINOPHILS 3 % 01/05/2024 7:13 AM CDT [facility] LABORATORY SERVICES [facility] BASOPHILS 1 % 01/05/2024 7:13 AM CDT [facility] LABORATORY SERVICES [facility] NEUTROPHIL ABSOLUTE 7.30(H) 1.90 - 7.00 K/uL 01/05/2024 7:13 AM CDT [facility] LABORATORY SERVICES [facility] LYMPHOCYTE ABSOLUTE 1.20 0.70 - 4.50 K/uL 01/05/2024 7:13 AM CDT [facility] LABORATORY SERVICES [facility] MONOCYTE ABSOLUTE 0.70 0.10 - 1.30 K/uL 01/05/2024 7:13 AM CDT [facility] LABORATORY SERVICES [facility] EOSINOPHIL ABSOLUTE 0.30 0.00 - 0.70 K/uL 01/05/2024 7:13 AM CDT [facility] LABORATORY SERVICES [facility] BASOPHILS ABSOLUTE 0.10 0.00 - 0.20 K/uL 01/05/2024 7:13 AM T [facility] [employer] [facility] Blood Collection / Unknown 01/05/2024 3:08 AM CDT 01/05/2024 7:03 AM CDT Brianda Leblanc MD HEMATOLOGY ORDERABLES Final Resu lt [facility] CLIA# [id number] [place] [address] * (ABNORMAL) BASIC METABOLIC PANEL (01/05/2024 3:08 AM CDT) SODIUM 136 136 - 145 mmol/L 01/05/2024 7:41 AM T [facility] POTASSIUM 4.4 3.4 - 5.1 mmol/L 01/05/2024 7:41 AM T [facility] CHLORIDE 98 98 - 107 mmol/L 01/05/2024 7:41 AM T [facility] CO2 24 22 - 29 mmol/L 01/05/2024 7:41 AM T [facility] CALCIUM 9.2 8.6 - 10.4 mg/dL 01/05/2024 7:41 AM T [facility] BUN 18 6 - 20 mg/dL 01/05/2024 7:41 AM [facility] CREATININE 0.63 0.51 - 0.95 mg/dL 01/05/2024 7:41 AM T [facility] GLUCOSE 142(H) 74 - 99 mg/dL 01/05/2024 7:41 AM T [facility] GFR >60 >=60 mL/min/1.7 3 sq meter 01/05/2024 7:41 AM T [facility] Comment:eGFR calculated with 2020 CKD-EPI equation. Vegetarian diet, extremely high or low muscle mass, and may affect results. Cystatin C with Glomerular Filtration Rate is a suitable alternative for these patients. ANION GAP 14 8 - 16 mmol/L 01/05/2024 7:41 AM CDT [facility] LABORATORY SERVICES [facility] Blood Collection / Unknown 01/05/2024 3:08 AM CDT 01/05/2024 7:03 AM CDT us Brianda Leblanc MD CHEMISTRY ORDERABLES Final Resul t [facility] LABORATORY SERVICES [facility] CLIA# [id number] [address] [place] [address] documented in this encounter Visit Diagnoses Not on filedocumented in this encounter
--- OUTSIDE RECORDS SUMMARY | 2025-01-14 09:46 | XMS_ITS | Encounter Summary ---
Author Organization [facility] Address [address] [place] [address] Care Team Providers Care Reference Library Assistant Name Role Phone Unavailable Primary Care Provider Unavailabl e Encounter Details Date Type Department Care Team (Late st Contact Info) Description 12/30/2023 Lab Requisition [facility] Laboratory Services [address] [place] [address] [place] [address] [place] [address] Social History Tobacco Use Types [...] Associated Diagnosis Comments VANCOMYCIN LEVEL TROUGH Routine 12/30/2023 2:43 PM CDT documented in this encounter Results * (ABNORMAL) VANCOMYCIN LEVEL TROUGH (12/30/2023 2:43 PM CDT) VANCOMYCIN, TROUGH 6.5(L) 10.0 - 17.0 ug/mL 12/30/2023 6:01 PM CDT [facility] Blood Collection / Unknown 12/30/2023 2:43 PM CDT 12/30/2023 5:30 PM CDT Brianda Leblanc MD CHEMISTRY ORDERABLES Final Resul t [facility] [employer] [facility] CLIA# [id number] [place] [address] documented in this encounter Visit Diagnoses Not on filedocumented in this encounter
--- OUTSIDE RECORDS SUMMARY | 2025-01-14 09:46 | XMS_ITS | Encounter Summary ---
Author Organization [facility] Address [address] [place] [address] Care Team Providers Care Java User Interface Developer Name Role Phone Unavailable Primary Care Provider Unavailabl e Encounter Details Date Type Department Care Team (Late st Contact Info) Description 01/05/2024 Lab Requisition [facility] Laboratory Services [address] [place] [address] [place] [address] [place] [address] Social History Tobacco Use Types Packs/Day Years Used Date Smoking Tobacco: Never Assessed Comments Unknown Sex and Gender Information Value Date Recorded Sex Assigned at Not on file Legal Sex Female 9:57 PM CDT Gender Identity Not on file Sexual Orientation Not on file documented as of this encounter Plan of Treatment Scheduled Orders Name Type Priority Associated Diagnoses Orde r Schedule EXTRA TUBE Lab Routine Ordered: 01/04 EXTRA TUBE Lab Routine Ordered: 01/04 documented as of this encounter Procedures Procedure Name Priority Date/Time Associated Diagnosis Comments BLOOD CULTURE Routine 01/05/2024 3:00 PM CDT BLOOD CULTURE PATHOGEN PCR PANEL Routine 01/05/2024 3:00 PM CDT BLOOD CULTURE Routine 01/05/2024 3:00 PM CDT BLOOD CULTURE Routine 01/05/2024 2:45 PM CDT BLOOD CULTURE Routine 01/05/2024 2:45 PM CDT documented in this encounter Results * (ABNORMAL) BLOOD CULTURE PATHOGEN PCR PANEL (01/05/2024 3:00 PM CDT) Pathologist [facility] Emergency Department Enterobacter cloacae complex by PCR DETECTED( A) Not Detected 01/06/2024 10:25 AM CDT [facility] Blood 01/05/2024 3:00 PM CDT 01/05/2024 4:17 PM CDT [facility] - 01/06/2024 10:25 AM CDT [employer] Blood Culture Identification Panel is a multiplexed nucleic acid detection test for bacterial and yeast nucleic acids in positive blood cultures. It also detects genetic determinants of resistance to methicillin (mecA/C and MREJ), vancomycin (Irene and vanB), carbapenems (IMP, KPC, NDM, OXA-48 like and VIM), colistin (mcr-1) and ESBL (CTX-M). The following organisms are identified using the [employer] BCID Panel: Gram Positive Bacteria Enterococcus faecalis Enterococcus faecium Listeria monocytogenes Staphylococcus Staphylococcus aureus Staphylococcus epidermidis Staphylococcus lugdunensis Streptococcus Streptococcus agalactiae Streptococcus pneumoniae Streptococcus pyogenes Gram Negative Bacteria Acinetobacter calcoaceticus-baumannii Bacteroides fragilis Haemophilus influenzae Neisseria meningitidis (encapsulated) Pseudomonas aeruginosa Stenotrophomonas maltophilia Enterobacterales Enterobacter cloacae complex Escherichia coli Klebsiella aerogenes Klebsiella oxytoca Klebsiella pneumoniae group Proteus Salmonella Serratia marcescens Yeast Jaycee albicans Jaycee auris Nakaseomyces glabrata(formerly Jaycee glabrata) Pichia kudriavzevii(formerly Jaycee krusei) Jaycee parapsilosis Jaycee tropicalis Cryptococcus neoformans/patricia Brianda Leblanc MD MICROBIOLOGY - GENERAL ORDERABLE S Final Result [facility]# [id number] [address] [facility] [place] [address] * (ABNORMAL) BLOOD CULTURE (01/05/2024 3:00 PM CDT) Pathologist [facility] Emergency Department BLOOD CULTURE Abnormal Gram Stain(A) 01/08/2024 9:49 AM CDT [facility] BLOOD CULTURE ENTEROBACTER CLOACAE COMPLEX(A) COSTA MCG/ML 01/08/2024 9:49 AM CDT [facility] Blood 01/05/2024 3:00 PM CDT 01/05/2024 4:17 PM CDT Narrative [facility] - 01/08/2024 9:49 AM CDT Gram stain and preliminary PCR results called to Raysa Phan RN, [facility], on 01/06/2024 at 10:25 AM and read back verified. Time to Positivity (aerobic bottle): 12.6 hours Time to Positivity (anaerobic bottle): 21 hours Blood stream infection is more likely to be catheter related if the time to positivity of a blood culture drawn through the line is at least 2.5 hours LESS than the time to positivity of a percutaneous culture of the same volume drawn at the same time, using the same media type. Organism Antibiotic Method Susceptibility Enterobacter cloacae complex CEFAZOLIN COSTA MCG/ML Resistant Enterobacter cloacae complex CEFEPIME COSTA MCG/ML 2 mcg/mL: Susceptible Enterobacter cloacae complex CEFTRIAXONE COSTA MCG/ML >=64 mcg/mL: Resistant Enterobacter cloacae complex CEFTAZIDIME COSTA MCG/ML >=64 mcg/mL: Resistant Enterobacter cloacae complex CEFOXITIN COSTA MCG/ML >=64 mcg/mL: Resistant Enterobacter cloacae complex MEROPENEM COSTA MCG/ML <=0.25 mcg/mL: Susceptible Enterobacter cloacae complex GENTAMICIN COSTA MCG/ML <=1 mcg/mL: Susceptible Enterobacter cloacae complex CIPROFLOXACIN COSTA MCG/ML <=0.25 mcg/mL: Susceptible Enterobacter cloacae complex TRIMETHOPRIM/ SULFAMETHOXAZOLE COSTA MCG/ML <=20 mcg/mL: Susceptible Enterobacter cloacae complex PIPERACILLIN/ TAZOBACTAM COSTA MCG/ML >=128 mcg/mL: Resistant Comment:Aminoglycosides shou ld not be used as monotherapy for infections outside the urinary tract. Consultation with an infectious diseases specialist is recommended. us Brianda Leblanc MD MICROBIOLOGY - GENERAL ORDERABLE S Final Result [facility] CLIA# [id number] [address] [place] [address] * (ABNORMAL) BLOOD CULTURE (01/05/2024 2:45 PM CDT) BLOOD CULTURE Abnormal Gram Stain(A) 01/08/2024 9:52 AM CDT [facility] BLOOD CULTURE ENTEROBACTER CLOACAE COMPLEX(A) COSTA MCG/ML 01/08/2024 9:52 AM CDT [facility] Comment:Susceptibility on pr evious culture. Blood 01/05/2024 2:45 PM CDT 01/05/2024 4:17 PM CDT Narrative [facility] - 01/08/2024 9:52 AM CDT Results called to Raysa Phan RN, [facility], on 01/06/2024 at 10:27 AM and read back verified. Time to Positivity (aerobic bottle): 28.8 hours Time to Positivity (anaerobic bottle): 14 hours Blood stream infection is more likely to be catheter related if the time to positivity of a blood culture drawn through the line is at least 2.5 hours LESS than the time to positivity of a percutaneous culture of the same volume drawn at the same time, using the same media type. us Brianda Leblanc MD MICROBIOLOGY - GENERAL ORDERABLE S Final Result [facility] CLIA# [id number] [address] [place] [address] documented in this encounter Visit Diagnoses Not on filedocumented in this encounter
--- OUTSIDE RECORDS SUMMARY | 2025-01-14 09:47 | XMS_ITS | Clinical Summary ---
Author Organization [facility] [employer] Address [address] [facility] [place] [address] Care Team Providers Care Emulsion Operator Name Role Phone Shivam Chester MD Unavailable [phone] Reid Engle MD Primary Care Provider [phone] Source Comments [facility],non-owned Affiliates and Associated Physician Practices is amultiple site organization consisting of ambulatory clinics and hospital sitesin [place], [place], [place] and [place]. This disclosure is being madepursuant to the Care Everywhere program and may not contain all information available regarding this patient. Last updated 17.[facility] [employer] Allergies Active Allergy Reactions Criticality Noted Date Comments Pneumococcal Vaccine Swelling Medium 02/04/2013 Valacyclovir Rash Low 07/16/2013 Medications * Be aware that medications may not be up to date on this document. Alwaysverify current medications with the patient. nitroglycerin (NITROSTAT) 0.3 MG tablet Dissolve 0.3 mg under the tongue as directed. Active Respiratory Therapy Supplies (NEBULIZER) DEVIIndications: COPD (chronic obstructive pulmonary disease) (HCC) Use 1 Device as directed. DX: COPD. 1 Device 0 3 Active ALPRAZolam (XANAX) 0.5 MG tabletIndication s:Anxiety Take 1 Tab by mouth 3 times daily as needed. 90 Tab 0 4 Active fenofibrate micronized (LOFIBRA) 200 MG capsuleIndicatio ns:Hyperlipidemi a Take 1 Cap by mouth once daily. Take with largest meal of the day. 90 Cap 1 4 Active lisinopril (PRINIVIL; ZESTRIL) 10 MG tabletIndication s:HTN (hypertension) Take 1 Tab by mouth once daily. 90 Tab 1 4 Active Additional Information Patient taking differently: 40 mgOral DAILY, Reported on 01/13/2023 albuterol HFA (PROAIR HFA) 108 (90 BASE) MCG/ACT inhalerIndicatio ns:COPD (chronic obstructive pulmonary disease) (HCC) Inhale 2 Puffs by mouth every 4 hours as needed for Shortness of Breath, Wheezing or Cough. 1 Inhaler 5 4 Active cyclobenzaprine (FLEXERIL) 10 MG tabletIndication s:Low back pain Take 1 Tab by mouth 3 times daily as needed for Muscle Spasms. 30 Tab 0 5 Active Additional Information Patient not taking.Reported on 01/15/2023 Budeson-Glycopyr rol-Formoterol (Breztri Aerosphere) 160-9-4.8 MCG/ACT AERO Inhale 2 puffs by mouth 2 times daily Active aspirin EC (Ecotrin) 81 MG tablet Take 1 (one) tablet by mouth once daily Active amitriptyline (Elavil) 25 MG tablet Take 1 (one) tablet by mouth at bedtime Active ranolazine ER 12hr (Ranexa) 500 MG tablet Take 1 (one) tablet by mouth every 12 hours Active isosorbide mononitrate CR 24hr (Imdur) 120 MG tablet Take 2 (two) tablets by mouth every morning Active atorvastatin (Lipitor) 40 MG tablet Take 1 (one) tablet by mouth at bedtime Active albuterol-ipratr opium (Duo-Neb) 0.5-2.5 (3) MG/3ML nebulizer solution Inhale 3 mL by mouth as needed for Shortness of Breath or Wheezing Active montelukast (Singulair) 10 MG tablet Take 1 (one) tablet by mouth at bedtime Active pantoprazole EC (Protonix) 40 MG tablet Take 1 (one) tablet by mouth once daily Active HYDROcodone-acet aminophen ([place]) 5-325 MG tabletIndication s:S/P sinus surgery Take 1 (one) tablet by mouth every 6 hours as needed for Pain 12 tablet Active Active Problems Problem Noted Date Diagnosed Date Deviated nasal septum 01/15/2023 Depression 08/03/2013 Anxiety 08/03/2013 Pleurisy 07/14/2013 Herpes zoster 07/14/2013 Hyperlipidemia 11/05/2012 COPD (chronic obstructive pulmonary disease) HTN (hypertension) 04/24/2012 Resolved Problems Problem Noted Date Diagnosed Date Resolved Date Right ankle pain 03/16/2013 05/04/2013 Herpes zoster 01/01/2013 02/04/2013 Periorbital Cellulitis 08/10/201210/29 Immunizations Immunization Administration Dates Next Due INFLUENZA VACCINE 01/14/2013,02/04/2012 PNEUMOCOCCAL PPSV23 01/14/2013 Family History Medical History Relation Name Comments Asthma Father Cancer - Other Father Lung Depression Mother Relation Name Status Comments Brother 1 Alive Brother 2 Alive Father Maternal Grandfather Maternal Grandmother Mother Paternal Grandfather Paternal Grandmother Sister Alive Social History Tobacco Use Types Packs/Day Years Used Date Smoking Tobacco: Every Day Cigarettes 0.3 32 Started: 05/11/1981; Last attempted to quit: 05/11/2013 Smokeless Tobacco: Never Tobacco Cessation:Ready to Q uit: Not Asked; Counseling Given: Not Answered Alcohol Use Standard Drinks/Week Comments No 0 (1 standard drink = 0.6 oz pur e alcohol) AUDIT-C Answer Date Recorded Q1: How often do you have a drink containing alcohol? Never 01/15/2023 Q2: How many drinks containi ng alcohol do you have on a typical day when you are drinking? Patient does not drink Q3: How often do you have si x or more drinks on one occasion? 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 Gender Identity Not on file Sexual Orientation Not on file Last Filed Vital Signs Vital Sign Reading Time Taken Comments Blood Pressure 113/67 01/15/2023 9:40 AM CDT Pulse 70 01/15/2023 9:40 AM CDT Temperature 36.9 C (98.4 F) 01/15/2023 9:25 AM CDT Respiratory Rate 20 01/15/2023 9:40 AM CDT Oxygen Saturation 94% 01/15/2023 10:23 AM CDT Inhaled Oxygen Concentration - - Weight 94.6 kg (208 lb 8.9 oz) 01/15/2023 6:23 A M CDT Height 162.6 cm (5' 4) 01/15/2023 6:23 AM CDT Body Mass Index 35.8 01/15/2023 6:23 AM CDT Plan of Treatment Health Maintenance Due Date Last Done Comments COLOGUARD (AGES 45-75) - COLON CA SCREENING [address] COLONOGRAPHY - COLON CA SCREENING 1960 FIT - COLON CA SCREENING 1960 FLEX SIG - COLON CA SCREENING 1960 HIV SCREENING 1975 DTAP/TDAP/TD VACCINES (1 - Tdap) 1979 ZOSTER VACCINE (1 of 2) 2010 PAP SMEAR 03/31/2014 03/31/2011 (Prev iously completed) MAMMOGRAM 08/28/2015 08/27/2013 (Othe r - see comments) COLONOSCOPY - COLON CA SCREENING 08/29/2017 08/30/2007 (Previously completed) Colorectal Cancer Screening 08/29/2017 Respiratory Syncytial Virus (RSV) Vaccine Pt: or over 60 yrs (1 - Risk 60-74 years 1-dose series) 2020 DEPRESSION SCREENING 03/31/2024 MEDICARE AWV CALENDAR YEAR 2024 08/27/2013 COVID-19 VACCINE ( season) 2024 06/29/2021, 11/30/2020, 11/09/2020 INFLUENZA VACCINE (#1) 2024 2, 12/20/2020, 01/05/2020, Additional history exists HEPATITIS C SCREENING Addressed 08/27/2013 (Other - see comments) Overridden with the intention of not completing the topic HEPATITIS B VACCINE Aged Out No longe r eligible based on patient's age to complete this topic HIB VACCINE Aged Out No longer eligi ble based on patient's age to complete this topic HPV VACCINE Aged Out No longer eligi ble based on patient's age to complete this topic MENINGOCOCCAL (Group B) VACCINE SHARED DECISION-MAKING Aged Out No longer eligible based on patient's age to complete this topic MENINGOCOCCAL GROUPS A/C/Y/W VACCINE Aged Out No longer eligible based on patient's age to complete this topic Insurance MEDICARE [facility] [place] MEDICARE [place]V [place] Care Teams Emulsion Operator Relationship Specialty [place] [address] [phone] PCP - General Internal Medicine 06/06/14 Shivam Chester MD [address] [place] [address] Pulmonary Disease 09/01/13
--- OUTSIDE RECORDS SUMMARY | 2025-01-14 09:47 | XMS_ITS | Clinical Summary ---
Author Organization [facility] Address [address] [place] [address] Phone Care Team Providers Care Manga Artist Name Role Phone Unavailable Primary Care Provider Unavailabl e Social History Tobacco Use Types Packs/Day Years Used Date Smoking Tobacco: Never Assessed Comments Unknown Sex and Gender Information Value Date Recorded Sex Assigned at Not on file Legal Sex Female 9:57 PM CDT Gender Identity Not on file Sexual Orientation Not on file Plan of Treatment Health Maintenance Due Date Last Done Comments DTAP/TDAP/TD VACCINES (1 - Tdap) 1979 HPV/Cotest (21-29) 1981 CERVICAL CANCER SCREENING 1990 HPV/Cotest (30-65) 1990 PAP SMEAR 1990 BREAST CANCER SCREENING 2000 COLORECTAL SCREENING 2005 Colorectal Cancer Screening 2005 FIT-DNA Q 3 years 2005 FIT/FOBT Q 1 year 2005 Flex Sig/CT Colonography Q 5 years 2005 ZOSTER VACCINE (1 of 2) 2010 INFLUENZA VACCINE (#1) 2024 RSV VACCINE (60+ or ) (1 - 1-dose 75+ series) 2035 Insurance PAPO
--- OUTSIDE RECORDS SUMMARY | 2025-01-14 09:47 | XMS_ITS | Encounter Summary ---
Author Organization [facility] Address [address] [place] [address] Care Team Providers Care Pheresis Nurse Name Role Phone Unavailable Primary Care Provider Unavailabl e Encounter Details Date Type Department Care Team (Late st Contact Info) Description 01/11/2024 Lab Requisition [facility] Laboratory Services [address] [place] [address] [place] [address] [place] [address] Social History Tobacco Use Types [...] Associated Diagnosis Comments CBC WITH DIFFERENTIAL Routine 01/11/2024 3:00 AM CDT BASIC METABOLIC PANEL Routine 01/11/2024 3:00 AM CDT documented in this encounter Results * (ABNORMAL) CBC WITH DIFFERENTIAL (01/11/2024 3:00 AM CDT) WBC 11.3(H) 4.5 - 10.5 K/uL 01/11/2024 8:58 AM CDT [facility] LABORATORY [facility] RBC 2.72(L) 3.90 - 4.90 M/uL 01/11/2024 8:58 AM CDT [facility] HEMOGLOBIN 7.8(L) 11.8 - 14.8 g/dL 01/11/2024 8:58 AM CDT [facility] LABORATORY [facility] HEMATOCRIT 23.8(L) 35.5 - 44.0 % 01/11/2024 8:58 AM CDT [facility] LABORATORY SERVICES [facility] MCV 87.4 82.0 - 99.0 fL 01/11/2024 8:58 AM CDT [facility] LABORATORY SERVICES [facility] MCH 28.5 27.8 - 34.5 pg 01/11/2024 8:58 AM CDT [facility] LABORATORY SERVICES [facility] MCHC 32.6 32.5 - 35.5 g/dL 01/11/2024 8:58 AM CDT [facility] LABORATORY SERVICES [facility] RDW 16.2(H) 11.5 - 14.5 % 01/11/2024 8:58 AM CDT [facility] LABORATORY SERVICES [facility] PLATELETS 270 160 - 420 K/uL 01/11/2024 8:58 AM CDT [facility] LABORATORY SERVICES [facility] MPV 10.2 8.7 - 12.7 fL 01/11/2024 8:58 AM CDT [facility] LABORATORY SERVICES [facility] NEUTROPHILS 65 % 01/11/2024 8:58 AM CDT [facility] LABORATORY SERVICES [facility] LYMPHOCYTES 20 % 01/11/2024 8:58 AM CDT [facility] LABORATORY SERVICES [facility] MONOCYTES 8 % 01/11/2024 8:58 AM CDT [facility] LABORATORY SERVICES [facility] EOSINOPHILS 6 % 01/11/2024 8:58 AM CDT [facility] LABORATORY SERVICES [facility] BASOPHILS 1 % 01/11/2024 8:58 AM CDT [facility] LABORATORY SERVICES [facility] NEUTROPHIL ABSOLUTE 7.30(H) 1.90 - 7.00 K/uL 01/11/2024 8:58 AM CDT [facility] LABORATORY SERVICES [facility] LYMPHOCYTE ABSOLUTE 2.30 0.70 - 4.50 K/uL 01/11/2024 8:58 AM CDT [facility] LABORATORY SERVICES [facility] MONOCYTE ABSOLUTE 0.90 0.10 - 1.30 K/uL 01/11/2024 8:58 AM CDT [facility] LABORATORY SERVICES [facility] EOSINOPHIL ABSOLUTE 0.70 0.00 - 0.70 K/uL 01/11/2024 8:58 AM CDT [facility] LABORATORY SERVICES [facility] BASOPHILS ABSOLUTE 0.10 0.00 - 0.20 K/uL 01/11/2024 8:58 AM CDT [facility] Blood Collection / Unknown 01/11/2024 3:00 AM CDT 01/11/2024 8:17 AM CDT us Brianda Leblanc MD HEMATOLOGY ORDERABLES Final Resu lt [facility] CLIA# [id number] [place] [address] * (ABNORMAL) BASIC METABOLIC PANEL (01/11/2024 3:00 AM CDT) SODIUM 137 136 - 145 mmol/L 01/11/2024 9:10 AM T [facility] POTASSIUM 4.5 3.4 - 5.1 mmol/L 01/11/2024 9:10 AM [facility] Comment:Slightly hemolyzed. Result may be falsely elevated. CHLORIDE 98 98 - 107 mmol/L 01/11/2024 9:10 AM T [facility] CO2 28 22 - 29 mmol/L 01/11/2024 9:10 AM T [facility] CALCIUM 9.8 8.6 - 10.4 mg/dL 01/11/2024 9:10 AM [facility] BUN 16 6 - 20 mg/dL 01/11/2024 9:10 AM T [facility] CREATININE 0.69 0.51 - 0.95 mg/dL 01/11/2024 9:10 AM T [facility] GLUCOSE 71(L) 74 - 99 mg/dL 01/11/2024 9:10 AM T [facility] GFR >60 >=60 mL/min/1.7 3 sq meter 01/11/2024 9:10 AM T [facility] Comment:eGFR calculated with 2020 CKD-EPI equation. Vegetarian diet, extremely high or low muscle mass, and may affect results. Cystatin C with Glomerular Filtration Rate is a suitable alternative for these patients. ANION GAP 11 8 - 16 mmol/L 01/11/2024 9:10 AM CDT [facility] LABORATORY [facility] Blood Collection / Unknown 01/11/2024 3:00 AM CDT 01/11/2024 8:17 AM CDT Brianda Leblanc MD CHEMISTRY ORDERABLES Final Resul t [facility] LABORATORY SERVICES [facility] CLIA# [id number] [place] [address] documented in this encounter Visit Diagnoses Not on filedocumented in this encounter
--- OUTSIDE RECORDS SUMMARY | 2025-01-14 09:47 | XMS_ITS | Encounter Summary ---
Author Organization [facility] Address [address] [place] [address] Care Team Providers Care Hospital Clerk Name Role Phone Unavailable Primary Care Provider Unavailabl e Encounter Details Date Type Department Care Team (Late st Contact Info) Description 01/06/2024 Lab Requisition [facility] Laboratory Services [address] [place] [address] [place] [address] [place] [address] Social History Tobacco Use Types [...] Associated Diagnosis Comments CBC WITH DIFFERENTIAL Routine 01/06/2024 2:15 AM CDT documented in this encounter Results * (ABNORMAL) CBC WITH DIFFERENTIAL (01/06/2024 2:15 AM CDT) WBC 9.3 4.5 - 10.5 K/uL 01/06/2024 4:57 AM CDT [facility] RBC 2.49(L) 3.90 - 4.90 M/uL 01/06/2024 4:57 AM CDT [facility] HEMOGLOBIN 7.0(L) 11.8 - 14.8 g/dL 01/06/2024 4:57 AM CDT [facility] HEMATOCRIT 21.5(L) 35.5 - 44.0 % 01/06/2024 4:57 AM CDT [facility] MCV 86.1 82.0 - 99.0 fL 01/06/2024 4:57 AM CDT [facility] SERVICES [facility] MCH 28.1 27.8 - 34.5 pg 01/06/2024 4:57 AM CDT [facility] MCHC 32.7 32.5 - 35.5 g/dL 01/06/2024 4:57 AM CDT [facility] SERVICES [facility] RDW 15.4(H) 11.5 - 14.5 % 01/06/2024 4:57 AM CDT [facility] SERVICES [facility] PLATELETS 278 160 - 420 K/uL 01/06/2024 4:57 AM CDT [facility] SERVICES [facility] MPV 9.9 8.7 - 12.7 fL 01/06/2024 4:57 AM CDT [facility] SERVICES [facility] NEUTROPHILS 77 % 01/06/2024 4:57 AM CDT [facility] LYMPHOCYTES 11 % 01/06/2024 4:57 AM CDT [facility] MONOCYTES 7 % 01/06/2024 4:57 AM CDT [facility] EOSINOPHILS 4 % 01/06/2024 4:57 AM CDT [facility] BASOPHILS 1 % 01/06/2024 4:57 AM CDT [facility] NEUTROPHIL ABSOLUTE 7.20(H) 1.90 - 7.00 K/uL 01/06/2024 4:57 AM CDT [facility] LYMPHOCYTE ABSOLUTE 1.00 0.70 - 4.50 K/uL 01/06/2024 4:57 AM CDT [facility] MONOCYTE ABSOLUTE 0.70 0.10 - 1.30 K/uL 01/06/2024 4:57 AM CDT [facility] EOSINOPHIL ABSOLUTE 0.40 0.00 - 0.70 K/uL 01/06/2024 4:57 AM CDT [facility] SERVICES [facility] BASOPHILS ABSOLUTE 0.10 0.00 - 0.20 K/uL 01/06/2024 4:57 AM CDT [facility] Blood Collection / Unknown 01/06/2024 2:15 AM CDT 01/06/2024 4:38 AM CDT us Brianda Leblanc MD HEMATOLOGY ORDERABLES Final Resu lt Performing Organization Address City/State/[facility] Co de Phone Number [facility]# [id number] [place] [address] documented in this encounter Visit Diagnoses Not on filedocumented in this encounter
--- OUTSIDE RECORDS SUMMARY | 2025-01-14 09:47 | XMS_ITS | Encounter Summary ---
Author Organization [facility] Address [address] [place] [address] Care Team Providers Care Fence Maker Name Role Phone Unavailable Primary Care Provider Unavailabl e Encounter Details Date Type Department Care Team (Late st Contact Info) Description 01/14/2024 Lab Requisition [facility] Laboratory Services [address] [place] [address] [place] [address] [place] [address] Social History Tobacco Use Types [...] Associated Diagnosis Comments CBC WITH DIFFERENTIAL Routine 01/14/2024 3:00 AM CDT BASIC METABOLIC PANEL Routine 01/14/2024 3:00 AM CDT documented in this encounter Results * (ABNORMAL) CBC WITH DIFFERENTIAL (01/14/2024 3:00 AM CDT) WBC 11.6(H) 4.5 - 10.5 K/uL 01/14/2024 9:11 AM CDT [facility] LABORATORY SERVICES [facility] RBC 2.96(L) 3.90 - 4.90 M/uL 01/14/2024 9:11 AM CDT [facility] HEMOGLOBIN 8.5(L) 11.8 - 14.8 g/dL 01/14/2024 9:11 AM CDT [facility] LABORATORY [facility] HEMATOCRIT 25.7(L) 35.5 - 44.0 % 01/14/2024 9:11 AM CDT [facility] LABORATORY SERVICES [facility] MCV 86.8 82.0 - 99.0 fL 01/14/2024 9:11 AM CDT [facility] LABORATORY SERVICES [facility] MCH 28.8 27.8 - 34.5 pg 01/14/2024 9:11 AM CDT [facility] LABORATORY SERVICES [facility] MCHC 33.1 32.5 - 35.5 g/dL 01/14/2024 9:11 AM CDT [facility] LABORATORY SERVICES [facility] RDW 16.8(H) 11.5 - 14.5 % 01/14/2024 9:11 AM CDT [facility] LABORATORY SERVICES [facility] PLATELETS 376 160 - 420 K/uL 01/14/2024 9:11 AM CDT [facility] LABORATORY SERVICES [facility] MPV 10.2 8.7 - 12.7 fL 01/14/2024 9:11 AM CDT [facility] LABORATORY SERVICES [facility] NEUTROPHILS 61 % 01/14/2024 9:11 AM CDT [facility] LABORATORY SERVICES [facility] LYMPHOCYTES 25 % 01/14/2024 9:11 AM CDT [facility] LABORATORY SERVICES [facility] MONOCYTES 9 % 01/14/2024 9:11 AM CDT [facility]ORATORY SERVICES [facility] EOSINOPHILS 4 % 01/14/2024 9:11 AM CDT [facility] LABORATORY SERVICES [facility] BASOPHILS 1 % 01/14/2024 9:11 AM CDT [facility] LABORATORY SERVICES [facility] NEUTROPHIL ABSOLUTE 7.00 1.90 - 7.00 K/uL 01/14/2024 9:11 AM CDT [facility] LABORATORY SERVICES [facility] LYMPHOCYTE ABSOLUTE 2.90 0.70 - 4.50 K/uL 01/14/2024 9:11 AM CDT [facility] LABORATORY SERVICES [facility] MONOCYTE ABSOLUTE 1.10 0.10 - 1.30 K/uL 01/14/2024 9:11 AM CDT [facility] LABORATORY SERVICES [facility] EOSINOPHIL ABSOLUTE 0.50 0.00 - 0.70 K/uL 01/14/2024 9:11 AM CDT [facility] LABORATORY SERVICES [facility] BASOPHILS ABSOLUTE 0.10 0.00 - 0.20 K/uL 01/14/2024 9:11 AM CDT [facility] Blood Collection / Unknown 01/14/2024 3:00 AM CDT 01/14/2024 8:52 AM CDT Brianda Leblanc MD HEMATOLOGY ORDERABLES Final Resu lt [facility] CLIA# [id number] [place] [address] * (ABNORMAL) BASIC METABOLIC PANEL (01/14/2024 3:00 AM CDT) SODIUM 132(L) 136 - 145 mmol/L 01/14/2024 9:30 AM T [facility] POTASSIUM 4.6 3.4 - 5.1 mmol/L 01/14/2024 9:30 AM T [facility] CHLORIDE 94(L) 98 - 107 mmol/L 01/14/2024 9:30 AM T [facility] CO2 24 22 - 29 mmol/L 01/14/2024 9:30 AM T [facility] CALCIUM 10.0 8.6 - 10.4 mg/dL 01/14/2024 9:30 AM T [facility] BUN 21(H) 6 - 20 mg/dL 01/14/2024 9:30 AM T [facility] CREATININE 0.75 0.51 - 0.95 mg/dL 01/14/2024 9:30 AM T [facility] GLUCOSE 85 74 - 99 mg/dL 01/14/2024 9:30 AM T [facility] GFR >60 >=60 mL/min/1.7 3 sq meter 01/14/2024 9:30 AM T [facility] Comment:eGFR calculated with 2020 CKD-EPI equation. Vegetarian diet, extremely high or low muscle mass, and may affect results. Cystatin C with Glomerular Filtration Rate is a suitable alternative for these patients. ANION GAP 14 8 - 16 mmol/L 01/14/2024 9:30 AM CDT [facility] LABORATORY SERVICES [facility] Blood Collection / Unknown 01/14/2024 3:00 AM CDT 01/14/2024 8:52 AM CDT us Brianda Leblanc MD CHEMISTRY ORDERABLES Final Resul t [facility] LABORATORY SERVICES [facility] CLIA# [id number] [place] [address] documented in this encounter Visit Diagnoses Not on filedocumented in this encounter
--- OUTSIDE RECORDS SUMMARY | 2025-01-14 09:47 | XMS_ITS | Encounter Summary ---
Author Organization [facility] Address [address] [place] [address] Care Team Providers Care Credit Reporting Clerk Name Role Phone Unavailable Primary Care Provider Unavailabl e Encounter Details Date Type Department Care Team (Late st Contact Info) Description 01/03/2024 Lab Requisition [facility] Laboratory Services [address] [place] [address] [place] [address] [place] [address] Social History Tobacco Use Types [...] Associated Diagnosis Comments CBC WITH DIFFERENTIAL Routine 01/03/2024 3:08 AM CDT VANCOMYCIN LEVEL RANDOM Routine 01/03/2024 3:08 AM CDT documented in this encounter Results * VANCOMYCIN LEVEL RANDOM (01/03/2024 3:08 AM CDT) VANCOMYCIN, RANDOM 16.9 No Ref Range Estab ug/mL 01/03/2024 7:31 AM CDT [facility] Blood Collection / Unknown 01/03/2024 3:08 AM CDT 01/03/2024 7:00 AM CDT us Brianda Leblanc MD CHEMISTRY ORDERABLES Final Resul t [facility] CLIA# [id number] [place] [address] * (ABNORMAL) CBC WITH DIFFERENTIAL (01/03/2024 3:08 AM CDT) [facility] WBC 8.3 4.5 - 10.5 K/uL 01/03/2024 7:36 AM CDT [facility] RBC 2.45(L) 3.90 - 4.90 M/uL 01/03/2024 7:36 AM CDT [facility] HEMOGLOBIN 6.8(LL) 11.8 - 14.8 g/dL 01/03/2024 7:36 AM CDT [facility] LABORATORY [facility] Comment:No clot Verified by repeat analysis. HEMATOCRIT 21.1(L) 35.5 - 44.0 % 01/03/2024 7:36 AM CDT [facility] MCV 86.1 82.0 - 99.0 fL 01/03/2024 7:36 AM CDT [facility] MCH 27.6(L) 27.8 - 34.5 pg 01/03/2024 7:36 AM CDT [facility] MCHC 32.0(L) 32.5 - 35.5 g/dL 01/03/2024 7:36 AM CDT [facility] RDW 15.4(H) 11.5 - 14.5 % 01/03/2024 7:36 AM CDT [facility] PLATELETS 311 160 - 420 K/uL 01/03/2024 7:36 AM CDT [facility] MPV 10.1 8.7 - 12.7 fL 01/03/2024 7:36 AM CDT [facility] NEUTROPHILS 67 % 01/03/2024 7:36 AM CDT [facility] LYMPHOCYTES 21 % 01/03/2024 7:36 AM CDT [facility] LABORATORY [facility] MONOCYTES 8 % 01/03/2024 7:36 AM CDT [facility] EOSINOPHILS 5 % 01/03/2024 7:36 AM CDT [facility] LABOR[facility] BASOPHILS 1 % 01/03/2024 7:36 AM CDT [facility] LABORATORY [facility] NEUTROPHIL ABSOLUTE 5.50 1.90 - 7.00 K/uL 01/03/2024 7:36 AM CDT [facility] LYMPHOCYTE ABSOLUTE 1.70 0.70 - 4.50 K/uL 01/03/2024 7:36 AM CDT [facility] LABORATORY [facility] MONOCYTE ABSOLUTE 0.60 0.10 - 1.30 K/uL 01/03/2024 7:36 AM CDT [facility] LABORATORY [facility] EOSINOPHIL ABSOLUTE 0.40 0.00 - 0.70 K/uL 01/03/2024 7:36 AM CDT [facility] LABORATORY [facility] BASOPHILS ABSOLUTE 0.10 0.00 - 0.20 K/uL 01/03/2024 7:36 AM CDT [facility] LABORATORY [facility] Blood Collection / Unknown 01/03/2024 3:08 AM CDT 01/03/2024 7:00 AM CDT us Brianda Leblanc MD HEMATOLOGY ORDERABLES Final Resu lt [facility] CLIA# [id number] [place] [address] documented in this encounter Visit Diagnoses Not on filedocumented in this encounter
--- OUTSIDE RECORDS SUMMARY | 2025-01-14 09:47 | XMS_ITS | Encounter Summary ---
Author Organization [facility] Address [address] [place] [address] Care Team Providers Care Public Health Program Manager Name Role Phone Unavailable Primary Care Provider Unavailabl e Encounter Details Date Type Department Care Team (Late st Contact Info) Description 01/20/2024 Lab Requisition [facility] Laboratory Services [address] [place] [address] [place] [address] [place] [address] Social History Tobacco Use Types [...] Associated Diagnosis Comments CBC WITH DIFFERENTIAL Routine 01/20/2024 4:00 AM CDT BASIC METABOLIC PANEL Routine 01/20/2024 4:00 AM CDT documented in this encounter Results * (ABNORMAL) CBC WITH DIFFERENTIAL (01/20/2024 4:00 AM CDT) WBC 10.4 4.5 - 10.5 K/uL 01/20/2024 7:36 AM CDT [facility] LABORATORY [facility] RBC 2.89(L) 3.90 - 4.90 M/uL 01/20/2024 7:36 AM CDT [facility] LABOR[facility] HEMOGLOBIN 8.4(L) 11.8 - 14.8 g/dL 01/20/2024 7:36 AM CDT [facility] LABORATORY [facility] HEMATOCRIT 25.0(L) 35.5 - 44.0 % 01/20/2024 7:36 AM CDT [facility] LABORATORY SERVICES [facility] MCV 86.4 82.0 - 99.0 fL 01/20/2024 7:36 AM CDT [facility] LABORATORY SERVICES [facility] MCH 29.0 27.8 - 34.5 pg 01/20/2024 7:36 AM CDT [facility] LABORATORY SERVICES [facility] MCHC 33.6 32.5 - 35.5 g/dL 01/20/2024 7:36 AM CDT [facility] LABORATORY SERVICES [facility] RDW 16.2(H) 11.5 - 14.5 % 01/20/2024 7:36 AM CDT [facility] LABORATORY SERVICES [facility] PLATELETS 406 160 - 420 K/uL 01/20/2024 7:36 AM CDT [facility] LABORATORY SERVICES [facility] MPV 9.5 8.7 - 12.7 fL 01/20/2024 7:36 AM CDT [facility] LABORATORY SERVICES [facility] NEUTROPHILS 60 % 01/20/2024 7:36 AM CDT [facility] LABORATORY SERVICES [facility] LYMPHOCYTES 24 % 01/20/2024 7:36 AM CDT [facility] LABORATORY SERVICES [facility] MONOCYTES 10 % 01/20/2024 7:36 AM CDT [facility] LABORATORY SERVICES [facility] EOSINOPHILS 6 % 01/20/2024 7:36 AM CDT [facility] LABORATORY SERVICES [facility] BASOPHILS 1 % 01/20/2024 7:36 AM CDT [facility] LABORATORY SERVICES [facility] NEUTROPHIL ABSOLUTE 6.20 1.90 - 7.00 K/uL 01/20/2024 7:36 AM CDT [facility] LABORATORY SERVICES [facility] LYMPHOCYTE ABSOLUTE 2.50 0.70 - 4.50 K/uL 01/20/2024 7:36 AM CDT [facility] LABORATORY SERVICES [facility] MONOCYTE ABSOLUTE 1.00 0.10 - 1.30 K/uL 01/20/2024 7:36 AM CDT [facility] LABORATORY SERVICES [facility] EOSINOPHIL ABSOLUTE 0.60 0.00 - 0.70 K/uL 01/20/2024 7:36 AM CDT [facility] LABORATORY SERVICES [facility] BASOPHILS ABSOLUTE 0.10 0.00 - 0.20 K/uL 01/20/2024 7:36 AM CDT [facility] Blood 01/20/2024 4:00 AM CDT 01/20/2024 7:16 AM CDT Brianda Leblanc MD HEMATOLOGY ORDERABLES Final Resu lt [facility] CLIA# [id number] [place] [address] * (ABNORMAL) BASIC METABOLIC PANEL (01/20/2024 4:00 AM CDT) SODIUM 131(L) 136 - 145 mmol/L 01/20/2024 8:01 AM [facility] POTASSIUM 4.1 3.4 - 5.1 mmol/L 01/20/2024 8:01 AM [facility] CHLORIDE 95(L) 98 - 107 mmol/L 01/20/2024 8:01 AM [facility] CO2 25 22 - 29 mmol/L 01/20/2024 8:01 AM [facility] CALCIUM 10.1 8.6 - 10.4 mg/dL 01/20/2024 8:01 AM [facility] BUN 16 6 - 20 mg/dL 01/20/2024 8:01 AM [facility] CREATININE 0.65 0.51 - 0.95 mg/dL 01/20/2024 8:01 AM [facility] GLUCOSE 93 74 - 99 mg/dL 01/20/2024 8:01 AM [facility] GFR >60 >=60 mL/min/1.7 3 sq meter 01/20/2024 8:01 AM [facility] Comment:eGFR calculated with 2020 CKD-EPI equation. Vegetarian diet, extremely high or low muscle mass, and may affect results. Cystatin C with Glomerular Filtration Rate is a suitable alternative for these patients. ANION GAP 11 8 - 16 mmol/L 01/20/2024 8:01 AM CDT [facility] LABORATORY SERVICES [facility] Blood 01/20/2024 4:00 AM CDT 01/20/2024 7:16 AM CDT Brianda Leblanc MD CHEMISTRY ORDERABLES Final Resul t [facility] LABORATORY SERVICES [facility] CLIA# [id number] [address] [place] [address] documented in this encounter Visit Diagnoses Not on filedocumented in this encounter
--- OUTSIDE RECORDS SUMMARY | 2025-01-14 09:47 | XMS_ITS | Encounter Summary ---
Author Organization [facility] Address [address] [place] [address] Care Team Providers Care Manager Laundry Name Role Phone Unavailable Primary Care Provider Unavailabl e Encounter Details Date Type Department Care Team (Late st Contact Info) Description 01/29/2024 Lab Requisition [facility] Laboratory Services [address] [place] [address] [place] [address] [place] [address] Social History Tobacco Use Types [...] Associated Diagnosis Comments CBC WITH DIFFERENTIAL Routine 01/29/2024 3:25 AM CDT BASIC METABOLIC PANEL Routine 01/29/2024 3:25 AM CDT documented in this encounter Results * (ABNORMAL) CBC WITH DIFFERENTIAL (01/29/2024 3:25 AM CDT) Pathologist [facility] WBC 9.7 4.5 - 10.5 K/uL 01/29/2024 7:35 AM CDT [facility] LABORATORY SERVICES [facility] RBC 2.96(L) 3.90 - 4.90 M/uL 01/29/2024 7:35 AM CDT [facility] LABORATORY [facility] HEMOGLOBIN 8.4(L) 11.8 - 14.8 g/dL 01/29/2024 7:35 AM CDT [facility] LABORATORY [facility] HEMATOCRIT 25.5(L) 35.5 - 44.0 % 01/29/2024 7:35 AM CDT [facility] LABORATORY SERVICES [facility] MCV 86.4 82.0 - 99.0 fL 01/29/2024 7:35 AM CDT [facility] LABORATORY SERVICES [facility] MCH 28.6 27.8 - 34.5 pg 01/29/2024 7:35 AM CDT [facility] LABORATORY SERVICES [facility] MCHC 33.1 32.5 - 35.5 g/dL 01/29/2024 7:35 AM CDT [facility] LABORATORY SERVICES [facility] RDW 16.5(H) 11.5 - 14.5 % 01/29/2024 7:35 AM CDT [facility] LABORATORY SERVICES [facility] PLATELETS 429(H) 160 - 420 K/uL 01/29/2024 7:35 AM CDT [facility] LABORATORY SERVICES [facility] MPV 9.1 8.7 - 12.7 fL 01/29/2024 7:35 AM CDT [facility] LABORATORY SERVICES [facility] NEUTROPHILS 59 % 01/29/2024 7:35 AM CDT [facility] LABORATORY SERVICES [facility] LYMPHOCYTES 26 % 01/29/2024 7:35 AM CDT [facility] LABORATORY SERVICES [facility] MONOCYTES 9 % 01/29/2024 7:35 AM CDT [facility] LABORATORY SERVICES [facility] EOSINOPHILS 6 % 01/29/2024 7:35 AM CDT [facility] LABORATORY SERVICES [facility] BASOPHILS 1 % 01/29/2024 7:35 AM CDT [facility] LABORATORY SERVICES [facility] NEUTROPHIL ABSOLUTE 5.70 1.90 - 7.00 K/uL 01/29/2024 7:35 AM CDT [facility] LABORATORY SERVICES [facility] LYMPHOCYTE ABSOLUTE 2.50 0.70 - 4.50 K/uL 01/29/2024 7:35 AM CDT [facility] LABORATORY SERVICES [facility] MONOCYTE ABSOLUTE 0.80 0.10 - 1.30 K/uL 01/29/2024 7:35 AM CDT [facility] LABORATORY SERVICES [facility] EOSINOPHIL ABSOLUTE 0.60 0.00 - 0.70 K/uL 01/29/2024 7:35 AM CDT [facility] LABORATORY SERVICES [facility] BASOPHILS ABSOLUTE 0.10 0.00 - 0.20 K/uL 01/29/2024 7:35 AM CDT [facility] Blood Collection / Unknown 01/29/2024 3:25 AM CDT 01/29/2024 6:48 AM CDT Brianda Leblanc MD HEMATOLOGY ORDERABLES Final Resu lt [facility] CLIA# [id number] [place] [address] * (ABNORMAL) BASIC METABOLIC PANEL (01/29/2024 3:25 AM CDT) SODIUM 134(L) 136 - 145 mmol/L 01/29/2024 7:50 AM CDT [facility] POTASSIUM 3.9 3.4 - 5.1 mmol/L 01/29/2024 7:50 AM T [facility] CHLORIDE 95(L) 98 - 107 mmol/L 01/29/2024 7:50 AM CDT [facility] CO2 25 22 - 29 mmol/L 01/29/2024 7:50 AM CDT [facility] CALCIUM 10.3 8.6 - 10.4 mg/dL 01/29/2024 7:50 AM CDT [facility] BUN 14 6 - 20 mg/dL 01/29/2024 7:50 AM T [facility] CREATININE 0.68 0.51 - 0.95 mg/dL 01/29/2024 7:50 AM CDT [facility] GLUCOSE 87 74 - 99 mg/dL 01/29/2024 7:50 AM T [facility] GFR >60 >=60 mL/min/1.7 3 sq meter 01/29/2024 7:50 AM T [facility] Comment:eGFR calculated with 2020 CKD-EPI equation. Vegetarian diet, extremely high or low muscle mass, and may affect results. Cystatin C with Glomerular Filtration Rate is a suitable alternative for these patients. ANION GAP 14 8 - 16 mmol/L 01/29/2024 7:50 AM CDT [facility] LABORATORY SERVICES [facility] Blood Collection / Unknown 01/29/2024 3:25 AM CDT 01/29/2024 6:48 AM CDT us Brianda Leblanc MD CHEMISTRY ORDERABLES Final Resul t [facility] LABORATORY SERVICES [facility] CLIA# [id number] [place] [address] documented in this encounter Visit Diagnoses Not on filedocumented in this encounter
--- OUTSIDE RECORDS SUMMARY | 2025-01-14 09:47 | XMS_ITS | Encounter Summary ---
Author Organization [facility] Address [address] [place] [address] Care Team Providers Care Inside Sales Executive Name Role Phone Unavailable Primary Care Provider Unavailabl e Encounter Details Date Type Department Care Team (Late st Contact Info) Description 01/06/2024 Lab Requisition [facility] Laboratory Services [address] [place] [address] [place] [address] [place] [address] Social History Tobacco Use Types [...] Priority Date/Time Associated Diagnosis Comments EXTRA TUBE (URINE MRUPHY) Routine 01/06/2024 1:30 PM CDT URINALYSIS WITH REFLEX CULTURE Routine 01/06/2024 1:30 PM CDT URINE CULTURE Routine 01/06/2024 1:30 PM CDT documented in this encounter Results * (ABNORMAL) URINE CULTURE (01/06/2024 1:30 PM CDT) CULTURE FANI ALBICANS(A) COSTA MCG/ML 01/08/2024 8:00 AM CDT [facility] Urine URINE SPECIMEN OBTAINED BY CLEAN CATCH PROCEDURE / Unknown Collection / Unknown 01/06/2024 1:30 PM CDT 01/06/2024 4:08 PM CDT us Brianda Leblanc MD MICROBIOLOGY - GENERAL ORDERABLE S Final Result [facility] LABORATORY [facility] CLIA# [id number] [address] [place] [address] * EXTRA TUBE (URINE MURPHY) (01/06/2024 1:30 PM CDT) Urine URINE SPECIMEN OBTAINED BY CLEAN CATCH PROCEDURE / Unknown 01/06/2024 1:30 PM CDT 01/06/2024 3:44 PM CDT us Brianda Leblanc MD URINE ORDERABLES Final Result [facility] LABORATORY SERVICES - [facility] CLIA# [id number] [address] [place] [address] * (ABNORMAL) URINALYSIS WITH REFLEX CULTURE (01/06/2024 1:30 PM CDT) COLOR UA Yellow Pale to Dark Yellow 01/06/2024 4:08 PM CDT [facility] LABORATORY [facility] CLARITY UA Slightly Cloudy(A) Clear 01/06/2024 4:08 PM CDT [facility] LABORATORY [facility] SPECIFIC GRAVITY UA 1.014 1.003 - 1.035 01/06/2024 4:08 PM CDT [facility] LABORATORY [facility] PH UA 6.0 5.0 - 8.0 01/06/2024 4:08 PM CDT [facility] LABORATORY [facility] LEUKOCYTE ESTERASE UA 2+(A) Negative 01/06/2024 4:08 PM CDT [facility] LABORATORY [facility] NITRITE UA Negative Negative 01/06/2024 4:08 PM CDT [facility] LABORATORY [facility] PROTEIN UA 1+(A) Negative 01/06/2024 4:08 PM CDT [facility] GLUCOSE UA Negative Negative 01/06/2024 4:08 PM CDT [facility] LABORATORY [facility] KETONES UA Negative Negative 01/06/2024 4:08 PM CDT [facility] LABORATORY [facility] UROBILINOGEN UA Normal <2.0 mg/dL 4:08 PM CDT [facility] BILIRUBIN UA Negative Negative 01/06/2024 4:08 PM CDT [facility] BLOOD UA Negative Negative 01/06/2024 4:08 PM CDT [facility] Comment:Ascorbic acid may ca use false negative results for blood. A microscopic review was reflexed to rule out this interference. WBC UA >100(A) 0 - 2 /hpf 01/06/2024 4:08 PM CDT [facility] RBC UA 3-5(A) 0 - 2 /hpf 01/06/2024 4:08 PM CDT [facility] BACTERIA UA 1+(A) Negative /hpf 01/06/2024 4:08 PM CDT [facility] EPITHELIAL CELLS, URINE 0-5 0 - 5 /hpf 01/06/2024 4:08 PM CDT [facility] HYALINE CAST None Seen None Seen, 0-2 /lpf 01/06/2024 4:08 PM CDT [facility] Ascorbic Acid UA Positive(A) Negative 024 4:08 PM CDT [facility] Urine URINE SPECIMEN OBTAINED BY CLEAN CATCH PROCEDURE / Unknown Collection / Unknown 01/06/2024 1:30 PM CDT 01/06/2024 3:44 PM CDT Narrative [facility] - 01/06/2024 4:08 PM CDT Based on results, a urine culture has been reflexed. us Brianda Leblanc MD URINE ORDERABLES Final Result [facility] CLIA# [id number] [place] [address] documented in this encounter Visit Diagnoses Not on filedocumented in this encounter
--- OUTSIDE RECORDS SUMMARY | 2025-01-14 09:47 | XMS_ITS | Encounter Summary ---
Author Organization [facility] Address [address] [place] [address] Care Team Providers Care Leaf Sorter Name Role Phone Unavailable Primary Care Provider Unavailabl e Encounter Details Date Type Department Care Team (Late st Contact Info) Description 01/23/2024 Lab Requisition [facility] Laboratory Services [address] [place] [address] [place] [address] [place] [address] Social History Tobacco Use Types [...] Associated Diagnosis Comments CBC WITH DIFFERENTIAL Routine 01/23/2024 3:00 AM CDT BASIC METABOLIC PANEL Routine 01/23/2024 3:00 AM CDT documented in this encounter Results * (ABNORMAL) CBC WITH DIFFERENTIAL (01/23/2024 3:00 AM CDT) Pathologist [facility] WBC 7.9 4.5 - 10.5 K/uL 01/23/2024 7:24 AM CDT [facility] LABORATORY [facility] RBC 3.00(L) 3.90 - 4.90 M/uL 01/23/2024 7:24 AM CDT [facility] LABORATORY [facility] HEMOGLOBIN 8.6(L) 11.8 - 14.8 g/dL 01/23/2024 7:24 AM CDT [facility] LABORATORY [facility] HEMATOCRIT 26.3(L) 35.5 - 44.0 % 01/23/2024 7:24 AM CDT [facility] LABORATORY SERVICES [facility] MCV 87.6 82.0 - 99.0 fL 01/23/2024 7:24 AM CDT [facility] LABORATORY SERVICES [facility] MCH 28.5 27.8 - 34.5 pg 01/23/2024 7:24 AM CDT [facility] LABORATORY SERVICES [facility] MCHC 32.6 32.5 - 35.5 g/dL 01/23/2024 7:24 AM CDT [facility] LABORATORY SERVICES [facility] RDW 16.3(H) 11.5 - 14.5 % 01/23/2024 7:24 AM CDT [facility] LABORATORY SERVICES [facility] PLATELETS 383 160 - 420 K/uL 01/23/2024 7:24 AM CDT [facility] LABORATORY SERVICES [facility] MPV 9.0 8.7 - 12.7 fL 01/23/2024 7:24 AM CDT [facility] LABORATORY SERVICES [facility] NEUTROPHILS 50 % 01/23/2024 7:24 AM CDT [facility] LABORATORY SERVICES [facility] LYMPHOCYTES 29 % 01/23/2024 7:24 AM CDT [facility] LABORATORY SERVICES [facility] MONOCYTES 11 % 01/23/2024 7:24 AM CDT [facility] LABORATORY SERVICES [facility] EOSINOPHILS 8 % 01/23/2024 7:24 AM CDT [facility] LABORATORY SERVICES [facility] BASOPHILS 1 % 01/23/2024 7:24 AM CDT [facility] NEUTROPHIL ABSOLUTE 3.90 1.90 - 7.00 K/uL 01/23/2024 7:24 AM CDT [facility] LYMPHOCYTE ABSOLUTE 2.30 0.70 - 4.50 K/uL 01/23/2024 7:24 AM CDT [facility] MONOCYTE ABSOLUTE 0.90 0.10 - 1.30 K/uL 01/23/2024 7:24 AM CDT [facility] EOSINOPHIL ABSOLUTE 0.70 0.00 - 0.70 K/uL 01/23/2024 7:24 AM CDT [facility] BASOPHILS ABSOLUTE 0.10 0.00 - 0.20 K/uL 01/23/2024 7:24 AM CDT [facility] Blood Collection / Unknown 01/23/2024 3:00 AM CDT 01/23/2024 7:10 AM CDT Brianda Leblanc MD HEMATOLOGY ORDERABLES Final Resu lt [facility] CLIA# [id number] [place] [address] * (ABNORMAL) BASIC METABOLIC PANEL (01/23/2024 3:00 AM CDT) SODIUM 136 136 - 145 mmol/L 01/23/2024 7:48 AM T [facility] POTASSIUM 4.0 3.4 - 5.1 mmol/L 01/23/2024 7:48 AM [facility] CHLORIDE 97(L) 98 - 107 mmol/L 01/23/2024 7:48 AM T [facility] CO2 26 22 - 29 mmol/L 01/23/2024 7:48 AM [facility] CALCIUM 10.2 8.6 - 10.4 mg/dL 01/23/2024 7:48 AM [facility] BUN 16 6 - 20 mg/dL 01/23/2024 7:48 AM [facility] CREATININE 0.70 0.51 - 0.95 mg/dL 01/23/2024 7:48 AM T [facility] GLUCOSE 91 74 - 99 mg/dL 01/23/2024 7:48 AM [facility] GFR >60 >=60 mL/min/1.7 3 sq meter 01/23/2024 7:48 AM [facility] Comment:eGFR calculated with 2020 CKD-EPI equation. Vegetarian diet, extremely high or low muscle mass, and may affect results. Cystatin C with Glomerular Filtration Rate is a suitable alternative for these patients. ANION GAP 13 8 - 16 mmol/L 01/23/2024 7:48 AM CDT [facility] Blood Collection / Unknown 01/23/2024 3:00 AM CDT 01/23/2024 7:10 AM CDT us Brianda Leblanc MD CHEMISTRY ORDERABLES Final Resul t [facility] CLIA# [id number] [place] [address] documented in this encounter Visit Diagnoses Not on filedocumented in this encounter
--- OUTSIDE RECORDS SUMMARY | 2025-01-14 09:47 | XMS_ITS | Encounter Summary ---
Author Organization [facility] Address [address] [place] [address] Care Team Providers Care Nuclear Radiation Engineer Name Role Phone Unavailable Primary Care Provider Unavailabl e Encounter Details Date Type Department Care Team (Late st Contact Info) Description 01/01/2024 Lab Requisition [facility] Services [address] [place] [address] [place] [address] [place] [address] Social History Tobacco Use Types [...] Associated Diagnosis Comments CBC WITH DIFFERENTIAL Routine 01/01/2024 8:40 PM CDT VANCOMYCIN LEVEL TROUGH Routine 01/01/2024 8:40 PM CDT BASIC METABOLIC PANEL Routine 01/01/2024 8:40 PM CDT documented in this encounter Results * (ABNORMAL) VANCOMYCIN LEVEL TROUGH (01/01/2024 8:40 PM CDT) VANCOMYCIN, TROUGH 27.0(HH) 10.0 - 17.0 ug/mL 01/01/2024 11:38 PM CDT [facility] Blood Collection / Unknown 01/01/2024 8:40 PM CDT 01/01/2024 10:33 PM CDT Brianda Leblanc MD CHEMISTRY ORDERABLES Final Resul t [facility] CLIA# [id number] [place] [address] * (ABNORMAL) CBC WITH DIFFERENTIAL (01/01/2024 8:40 PM CDT) [facility] WBC 8.5 4.5 - 10.5 K/uL 01/01/2024 10:43 PM CDT [facility] RBC 2.54(L) 3.90 - 4.90 M/uL 01/01/2024 10:43 PM CDT [facility] HEMOGLOBIN 7.2(L) 11.8 - 14.8 g/dL 01/01/2024 10:43 PM CDT [facility] HEMATOCRIT 21.8(L) 35.5 - 44.0 % 01/01/2024 10:43 PM CDT [facility] MCV 85.8 82.0 - 99.0 fL 01/01/2024 10:43 PM CDT [facility] MCH 28.5 27.8 - 34.5 pg 01/01/2024 10:43 PM CDT [facility] MCHC 33.2 32.5 - 35.5 g/dL 01/01/2024 10:43 PM CDT [facility] RDW 14.8(H) 11.5 - 14.5 % 01/01/2024 10:43 PM CDT [facility] PLATELETS 292 160 - 420 K/uL 01/01/2024 10:43 PM CDT [facility] MPV 10.5 8.7 - 12.7 fL 01/01/2024 10:43 PM CDT [facility] NEUTROPHILS 70 % 01/01/2024 10:43 PM CDT [facility] LYMPHOCYTES 17 % 01/01/2024 10:43 PM CDT [facility] MONOCYTES 7 % 01/01/2024 10:43 PM CDT [facility] EOSINOPHILS 5 % 01/01/2024 10:43 PM CDT [facility] BASOPHILS 1 % 01/01/2024 10:43 PM CDT [facility] NEUTROPHIL ABSOLUTE 6.00 1.90 - 7.00 K/uL 01/01/2024 10:43 PM CDT [facility] LYMPHOCYTE ABSOLUTE 1.40 0.70 - 4.50 K/uL 01/01/2024 10:43 PM CDT [facility] MONOCYTE ABSOLUTE 0.60 0.10 - 1.30 K/uL 01/01/2024 10:43 PM CDT [facility] EOSINOPHIL ABSOLUTE 0.50 0.00 - 0.70 K/uL 01/01/2024 10:43 PM CDT [facility] - [facility] BASOPHILS ABSOLUTE 0.10 0.00 - 0.20 K/uL 01/01/2024 10:43 PM CDT [facility] Blood Collection / Unknown 01/01/2024 8:40 PM CDT 01/01/2024 10:33 PM CDT us Brianda Leblanc MD HEMATOLOGY ORDERABLES Final Resu lt [facility] CLIA# [id number] [place] [address] * (ABNORMAL) BASIC METABOLIC PANEL (01/01/2024 8:40 PM CDT) SODIUM 138 136 - 145 mmol/L 01/01/2024 11:04 PM CDT [facility] POTASSIUM 3.9 3.4 - 5.1 mmol/L 01/01/2024 11:04 PM CDT [facility] CHLORIDE 99 98 - 107 mmol/L 01/01/2024 11:04 PM CDT [facility] CO2 28 22 - 29 mmol/L 01/01/2024 11:04 PM CDT [facility] CALCIUM 8.9 8.6 - 10.4 mg/dL 01/01/2024 11:04 PM CDT [facility] BUN 19 6 - 20 mg/dL 01/01/2024 11:04 PM CDT [facility] CREATININE 0.61 0.51 - 0.95 mg/dL 01/01/2024 11:04 PM CDT [facility] GLUCOSE 130(H) 74 - 99 mg/dL 01/01/2024 11:04 PM CDT [facility] GFR >60 >=60 mL/min/1.7 3 sq meter 01/01/2024 11:04 PM T [facility] Comment:eGFR calculated with 2020 CKD-EPI equation. Vegetarian diet, extremely high or low muscle mass, and may affect results. Cystatin C with Glomerular Filtration Rate is a suitable alternative for these patients. ANION GAP 11 8 - 16 mmol/L 01/01/2024 11:04 PM CDT [facility] Blood Collection / Unknown 01/01/2024 8:40 PM CDT 01/01/2024 10:33 PM CDT us Brianda Leblanc MD CHEMISTRY ORDERABLES Final Resul t [facility] CLIA# [id number] [place] [address] documented in this encounter Visit Diagnoses Not on filedocumented in this encounter
--- OUTSIDE RECORDS SUMMARY | 2025-01-14 09:47 | XMS_ITS | Encounter Summary ---
Author Organization [facility] Address [address] [place] [address] Care Team Providers Care Leather Lacer Name Role Phone Unavailable Primary Care Provider Unavailabl e Encounter Details Date Type Department Care Team (Late st Contact Info) Description 01/07/2024 Lab Requisition [facility] Laboratory Services [address] [place] [address] [place] [address] [place] [address] Social History Tobacco Use Types [...] Date/Time Associated Diagnosis Comments BLOOD CULTURE Routine 01/07/2024 2:15 AM CDT BLOOD CULTURE Routine 01/07/2024 2:15 AM CDT PREPARE RED BLOOD CELLS Routine 01/07/2024 2:00 AM CDT BLOOD CULTURE Routine 01/07/2024 2:00 AM CDT CBC WITH DIFFERENTIAL Routine 01/07/2024 2:00 AM CDT BLOOD CULTURE Routine 01/07/2024 2:00 AM CDT TYPE AND SCREEN Routine 01/07/2024 2:00 AM CDT documented in this encounter Results * BLOOD CULTURE (01/07/2024 2:15 AM CDT) BLOOD CULTURE No growth 01/12/2024 9:54 AM CDT [facility] Blood Collection / Unknown 01/07/2024 2:15 AM CDT 01/07/2024 4:13 AM CDT Brianda Leblanc MD MICROBIOLOGY - GENERAL ORDERABLE S Final Result [facility] [employer] [facility] CLIA# [id number] [address] [place] [address] * PREPARE RED BLOOD CELLS (01/07/2024 2:00 AM CDT) Pathologist [facility] COMPONENT TYPE [id number] [facility] COMPONENT IDENTIFICATION [id number] [facility] - [facility] UNIT ABO O [facility] - [facility] RH POS [facility] - [facility] CROSSMATCH Compatible [facility] COMPONENT STATUS Transfused ME [facility] SERVICES - [facility] COMPONENT EXPIRATION DATE/TIME [id number] [facility] COMPONENT CODING SYSTEM [address] [facility] VOLUME, BLOOD PRODUCT 350 [facility] 01/07/2024 2:00 AM CDT Brianda Leblanc MD LAB TRANSFUSION ORDERABLES Edite d Result - Final [facility] [employer] [facility] CLIA# [id number] [place] [address] * BLOOD CULTURE (01/07/2024 2:00 AM CDT) BLOOD CULTURE No growth 01/12/2024 9:54 AM CDT [facility] Blood Collection / Unknown 01/07/2024 2:00 AM CDT 01/07/2024 4:13 AM CDT Brianda Leblanc MD MICROBIOLOGY - GENERAL ORDERABLE S Final Result [facility] CLIA# [id number] [address] [place] [address] * TYPE AND SCREEN (01/07/2024 2:00 AM CDT) Pathologist [facility] ANTIBODY SCREEN Negative 01/07/2024 5:05 AM CDT [facility] ABO GROUP O 01/07/2024 5:05 AM CDT [facility] [employer] [facility] RH (D) TYPE Positive 01/07/2024 5:05 AM CDT [facility] Blood Collection / Unknown 01/07/2024 2:00 AM CDT 01/07/2024 4:13 AM CDT Brianda Leblanc MD BLOOD BANK ORDERABLES Edited Res ult - Final [facility] [employer] [facility] CLIA# [id number] [place] [address] * (ABNORMAL) CBC WITH DIFFERENTIAL (01/07/2024 2:00 AM CDT) Pathologist [facility] WBC 9.4 4.5 - 10.5 K/uL 01/07/2024 5:20 AM CDT [facility] [employer] [facility] RBC 2.27(L) 3.90 - 4.90 M/uL 01/07/2024 5:20 AM CDT [facility] [employer] [facility] HEMOGLOBIN 6.5(LL) 11.8 - 14.8 g/dL 01/07/2024 5:20 AM CDT [facility] HEMATOCRIT 20.0(L) 35.5 - 44.0 % 01/07/2024 5:20 AM CDT [facility] MCV 88.0 82.0 - 99.0 fL 01/07/2024 5:20 AM CDT [facility] MCH 28.6 27.8 - 34.5 pg 01/07/2024 5:20 AM CDT [facility] MCHC 32.5 32.5 - 35.5 g/dL 01/07/2024 5:20 AM CDT [facility] RDW 15.7(H) 11.5 - 14.5 % 01/07/2024 5:20 AM CDT [facility] PLATELETS 238 160 - 420 K/uL 01/07/2024 5:20 AM CDT [facility] MPV 10.5 8.7 - 12.7 fL 01/07/2024 5:20 AM CDT [facility] NEUTROPHILS 74 % 01/07/2024 5:20 AM CDT [facility] LYMPHOCYTES 12 % 01/07/2024 5:20 AM CDT [facility] MONOCYTES 7 % 01/07/2024 5:20 AM CDT [facility] EOSINOPHILS 6 % 01/07/2024 5:20 AM CDT [facility] BASOPHILS 1 % 01/07/2024 5:20 AM CDT [facility] NEUTROPHIL ABSOLUTE 6.90 1.90 - 7.00 K/uL 01/07/2024 5:20 AM CDT [facility] LYMPHOCYTE ABSOLUTE 1.10 0.70 - 4.50 K/uL 01/07/2024 5:20 AM CDT [facility] MONOCYTE ABSOLUTE 0.70 0.10 - 1.30 K/uL 01/07/2024 5:20 AM CDT [facility] EOSINOPHIL ABSOLUTE 0.60 0.00 - 0.70 K/uL 01/07/2024 5:20 AM CDT [facility] BASOPHILS ABSOLUTE 0.10 0.00 - 0.20 K/uL 01/07/2024 5:20 AM CDT [facility] Blood Collection / Unknown 01/07/2024 2:00 AM CDT 01/07/2024 4:13 AM CDT us Brianda Leblanc MD HEMATOLOGY ORDERABLES Final Resu lt [facility]# [id number] [place] [address] documented in this encounter Visit Diagnoses Not on filedocumented in this encounter
--- OUTSIDE RECORDS SUMMARY | 2025-01-14 09:47 | XMS_ITS | Encounter Summary ---
Author Organization [facility] Address [address] [place] [address] Care Team Providers Care Labor Conciliator Name Role Phone Unavailable Primary Care Provider Unavailabl e Encounter Details Date Type Department Care Team (Late st Contact Info) Description 01/16/2024 Lab Requisition [facility] Laboratory Services [address] [place] [address] [place] [address] [place] [address] Social History Tobacco Use Types [...] Procedure Name Priority Date/Time Associated Diagnosis Comments BASIC METABOLIC PANEL Routine 01/16/2024 12:30 AM CDT documented in this encounter Results * (ABNORMAL) BASIC METABOLIC PANEL (01/16/2024 12:30 AM CDT) SODIUM 134(L) 136 - 145 mmol/L 01/16/2024 1:53 AM CDT [facility] POTASSIUM 4.3 3.4 - 5.1 mmol/L 01/16/2024 1:53 AM CDT [facility] Comment:Slightly hemolyzed. Result may be falsely elevated. CHLORIDE 96(L) 98 - 107 mmol/L 01/16/2024 1:53 AM CDT [facility] CO2 24 22 - 29 mmol/L 01/16/2024 1:53 AM CDT [facility] CALCIUM 10.1 8.6 - 10.4 mg/dL 01/16/2024 1:53 AM CDT [facility] BUN 21(H) 6 - 20 mg/dL 01/16/2024 1:53 AM CDT [facility] CREATININE 0.67 0.51 - 0.95 mg/dL 01/16/2024 1:53 AM CDT [facility] GLUCOSE 104(H) 74 - 99 mg/dL 01/16/2024 1:53 AM CDT [facility] GFR >60 >=60 mL/min/1.7 3 sq meter 01/16/2024 1:53 AM T [facility] Comment:eGFR calculated with 2020 CKD-EPI equation. Vegetarian diet, extremely high or low muscle mass, and may affect results. Cystatin C with Glomerular Filtration Rate is a suitable alternative for these patients. ANION GAP 14 8 - 16 mmol/L 01/16/2024 1:53 AM CDT [facility] Blood 01/16/2024 12:3 0 AM CDT 01/16/2024 1:10 AM CDT Brianda Leblanc MD CHEMISTRY ORDERABLES Final Resul t [facility] CLIA# [id number] [place] [address] documented in this encounter Visit Diagnoses Not on filedocumented in this encounter
--- OUTSIDE RECORDS SUMMARY | 2025-01-14 09:47 | XMS_ITS | Encounter Summary ---
Author Organization [facility] Address [address] [place] [address] Care Team Providers Care Credit Collector Name Role Phone Unavailable Primary Care Provider Unavailabl e Encounter Details Date Type Department Care Team (Late st Contact Info) Description 01/08/2024 Lab Requisition [facility] Laboratory Services [address] [place] [address] [place] [address] [place] [address] Social History Tobacco Use Types [...] Priority Date/Time Associated Diagnosis Comments EXTRA TUBE (LAV) Routine 01/08/2024 3:50 AM CDT CBC WITH DIFFERENTIAL Routine 01/08/2024 3:50 AM CDT COMPREHENSIVE METABOLIC PANEL Routine 01/08/2024 3:50 AM CDT documented in this encounter Results * EXTRA TUBE (LAV) (01/08/2024 3:50 AM CDT) Blood 01/08/2024 3:50 AM CDT 01/08/2024 7:39 AM CDT us Brianda Leblanc MD HEMATOLOGY ORDERABLES Final Resu lt [facility] CLIA# [id number] [address] [place] [address] * (ABNORMAL) CBC WITH DIFFERENTIAL (01/08/2024 3:50 AM CDT) [facility] WBC 7.6 4.5 - 10.5 K/uL 01/08/2024 7:57 AM CDT [facility] RBC 2.62(L) 3.90 - 4.90 M/uL 01/08/2024 7:57 AM CDT [facility] HEMOGLOBIN 7.4(L) 11.8 - 14.8 g/dL 01/08/2024 7:57 AM CDT [facility] HEMATOCRIT 22.9(L) 35.5 - 44.0 % 01/08/2024 7:57 AM CDT [facility] MCV 87.2 82.0 - 99.0 fL 01/08/2024 7:57 AM CDT [facility] MCH 28.3 27.8 - 34.5 pg 01/08/2024 7:57 AM CDT [facility] MCHC 32.4(L) 32.5 - 35.5 g/dL 01/08/2024 7:57 AM CDT [facility] RDW 15.4(H) 11.5 - 14.5 % 01/08/2024 7:57 AM CDT [facility] PLATELETS 240 160 - 420 K/uL 01/08/2024 7:57 AM CDT [facility] MPV 10.2 8.7 - 12.7 fL 01/08/2024 7:57 AM CDT [facility] NEUTROPHILS 62 % 01/08/2024 7:57 AM CDT [facility] LYMPHOCYTES 20 % 01/08/2024 7:57 AM CDT [facility] MONOCYTES 8 % 01/08/2024 7:57 AM CDT [facility] EOSINOPHILS 9 % 01/08/2024 7:57 AM CDT [facility] BASOPHILS 1 % 01/08/2024 7:57 AM CDT [facility] NEUTROPHIL ABSOLUTE 4.70 1.90 - 7.00 K/uL 01/08/2024 7:57 AM CDT [facility] SERVICES [facility] LYMPHOCYTE ABSOLUTE 1.50 0.70 - 4.50 K/uL 01/08/2024 7:57 AM CDT [facility] SERVICES - [facility] MONOCYTE ABSOLUTE 0.60 0.10 - 1.30 K/uL 01/08/2024 7:57 AM CDT [facility] SERVICES [facility] EOSINOPHIL ABSOLUTE 0.70 0.00 - 0.70 K/uL 01/08/2024 7:57 AM CDT [facility] SERVICES - [facility] BASOPHILS ABSOLUTE 0.10 0.00 - 0.20 K/uL 01/08/2024 7:57 AM CDT [facility] SERVICES [facility] Blood 01/08/2024 3:50 AM CDT 01/08/2024 7:39 AM CDT us Brianda Leblanc MD HEMATOLOGY ORDERABLES Final Resu lt [facility] CLIA# [id number] [place] [address] * (ABNORMAL) COMPREHENSIVE METABOLIC PANEL (01/08/2024 3:50 AM CDT) SODIUM 138 136 - 145 mmol/L 01/08/2024 8:24 AM CDT [facility] POTASSIUM 3.8 3.4 - 5.1 mmol/L 01/08/2024 8:24 AM CDT [facility] SERVICES [facility] CHLORIDE 102 98 - 107 mmol/L 01/08/2024 8:24 AM CDT [facility] SERVICES [facility] CO2 25 22 - 29 mmol/L 01/08/2024 8:24 AM CDT [facility] CALCIUM 9.0 8.6 - 10.4 mg/dL 01/08/2024 8:24 AM CDT [facility] BUN 18 6 - 20 mg/dL 01/08/2024 8:24 AM CDT [facility] CREATININE 0.48(L) 0.51 - 0.95 mg/dL 01/08/2024 8:24 AM CDT [facility] GLUCOSE 127(H) 74 - 99 mg/dL 01/08/2024 8:24 AM CDT [facility] TOTAL PROTEIN 6.3 6.3 - 8.7 g/dL 01/08/2024 8:24 AM T [facility] ALBUMIN 2.5(L) 3.5 - 5.2 g/dL 01/08/2024 8:24 AM CDT [facility] BILIRUBIN TOTAL 0.2 0.2 - 1.1 mg/dL 01/08/2024 8:24 AM T [facility] ALKALINE PHOSPHATASE 210(H) 40 - 150 U/L 01/08/2024 8:24 AM CDT [facility] AST 20 0 - 33 U/L 01/08/2024 8:24 AM CDT [facility] ALT 16 0 - 33 U/L 01/08/2024 8:24 AM T [facility] GFR >60 >=60 mL/min/1.7 3 sq meter 01/08/2024 8:24 AM [facility] Comment:eGFR calculated with 2020 CKD-EPI equation. Vegetarian diet, extremely high or low muscle mass, and may affect results. Cystatin C with Glomerular Filtration Rate is a suitable alternative for these patients. ANION GAP 11 8 - 16 mmol/L 01/08/2024 8:24 AM T [facility] Blood 01/08/2024 3:50 AM CDT 01/08/2024 7:39 AM CDT us Brianda Leblanc MD CHEMISTRY ORDERABLES Final Resul t [facility] CLIA# [id number] [place] [address] documented in this encounter Visit Diagnoses Not on filedocumented in this encounter
--- OUTSIDE RECORDS SUMMARY | 2025-01-14 09:47 | XMS_ITS | Encounter Summary ---
Author Organization [facility] Address [address] [place] [address] Care Team Providers Care Direct Support Professional Home Health Name Role Phone Unavailable Primary Care Provider Unavailabl e Encounter Details Date Type Department Care Team (Late st Contact Info) Description 01/17/2024 Lab Requisition [facility] Laboratory Services [address] [place] [address] [place] [address] [place] [address] Social History Tobacco Use Types [...] Associated Diagnosis Comments CBC WITH DIFFERENTIAL Routine 01/17/2024 3:45 AM CDT BASIC METABOLIC PANEL Routine 01/17/2024 3:45 AM CDT documented in this encounter Results * (ABNORMAL) CBC WITH DIFFERENTIAL (01/17/2024 3:45 AM CDT) [facility] WBC 9.8 4.5 - 10.5 K/uL 01/17/2024 8:43 AM CDT [facility] SERVICES - [facility] RBC 3.10(L) 3.90 - 4.90 M/uL 01/17/2024 8:43 AM CDT [facility] HEMOGLOBIN 8.7(L) 11.8 - 14.8 g/dL 01/17/2024 8:43 AM CDT [facility] - [facility] HEMATOCRIT 27.3(L) 35.5 - 44.0 % 01/17/2024 8:43 AM CDT [facility]OR[facility]ORY SERVICES [facility] MCV 87.9 82.0 - 99.0 fL 01/17/2024 8:43 AM CDT [facility] SERVICES [facility] MCH 28.2 27.8 - 34.5 pg 01/17/2024 8:43 AM CDT [facility] SERVICES [facility] MCHC 32.1(L) 32.5 - 35.5 g/dL 01/17/2024 8:43 AM CDT [facility] SERVICES [facility] RDW 16.7(H) 11.5 - 14.5 % 01/17/2024 8:43 AM CDT [facility] SERVICES [facility] PLATELETS 394 160 - 420 K/uL 01/17/2024 8:43 AM CDT [facility] SERVICES [facility] MPV 9.7 8.7 - 12.7 fL 01/17/2024 8:43 AM CDT [facility] SERVICES [facility] NEUTROPHILS 64 % 01/17/2024 8:43 AM CDT [facility] SERVICES [facility] LYMPHOCYTES 22 % 01/17/2024 8:43 AM CDT [facility] SERVICES [facility] MONOCYTES 7 % 01/17/2024 8:43 AM CDT [facility] SERVICES [facility] EOSINOPHILS 6 % 01/17/2024 8:43 AM CDT [facility] SERVICES [facility] BASOPHILS 1 % 01/17/2024 8:43 AM CDT [facility] SERVICES [facility] NEUTROPHIL ABSOLUTE 6.30 1.90 - 7.00 K/uL 01/17/2024 8:43 AM CDT [facility] SERVICES [facility] LYMPHOCYTE ABSOLUTE 2.10 0.70 - 4.50 K/uL 01/17/2024 8:43 AM CDT [facility] SERVICES [facility] MONOCYTE ABSOLUTE 0.70 0.10 - 1.30 K/uL 01/17/2024 8:43 AM CDT [facility] SERVICES [facility] EOSINOPHIL ABSOLUTE 0.60 0.00 - 0.70 K/uL 01/17/2024 8:43 AM CDT [facility] SERVICES [facility] BASOPHILS ABSOLUTE 0.10 0.00 - 0.20 K/uL 01/17/2024 8:43 AM CDT [facility] Blood Collection / Unknown 01/17/2024 3:45 AM CDT 01/17/2024 8:21 AM CDT Brianda Leblanc MD HEMATOLOGY ORDERABLES Final Resu lt [facility] CLIA# [id number] [place] [address] * BASIC METABOLIC PANEL (01/17/2024 3:45 AM CDT) SODIUM 137 136 - 145 mmol/L 01/17/2024 9:07 AM T [facility] POTASSIUM 4.3 3.4 - 5.1 mmol/L 01/17/2024 9:07 AM T [facility] CHLORIDE 99 98 - 107 mmol/L 01/17/2024 9:07 AM T [facility] CO2 27 22 - 29 mmol/L 01/17/2024 9:07 AM T [facility] CALCIUM 10.4 8.6 - 10.4 mg/dL 01/17/2024 9:07 AM [facility] BUN 20 6 - 20 mg/dL 01/17/2024 9:07 AM [facility] CREATININE 0.62 0.51 - 0.95 mg/dL 01/17/2024 9:07 AM T [facility] GLUCOSE 86 74 - 99 mg/dL 01/17/2024 9:07 AM T [facility] GFR >60 >=60 mL/min/1.7 3 sq meter 01/17/2024 9:07 AM [facility]OG [facility] Comment:eGFR calculated with 2020 CKD-EPI equation. Vegetarian diet, extremely high or low muscle mass, and may affect results. Cystatin C with Glomerular Filtration Rate is a suitable alternative for these patients. ANION GAP 11 8 - 16 mmol/L 01/17/2024 9:07 AM CDT [facility] SERVICES [facility] Blood Collection / Unknown 01/17/2024 3:45 AM CDT 01/17/2024 8:21 AM CDT Brianda Leblanc MD CHEMISTRY ORDERABLES Final Resul t [facility]OR[facility]ORY SERVICES [facility] CLIA# [id number] [place] [address] documented in this encounter Visit Diagnoses Not on filedocumented in this encounter
--- OUTSIDE RECORDS SUMMARY | 2025-01-14 09:47 | XMS_ITS | Encounter Summary ---
Author Organization [facility] Address [address] [place] [address] Care Team Providers Care Propellant Assembler Name Role Phone Unavailable Primary Care Provider Unavailabl e Encounter Details Date Type Department Care Team (Late st Contact Info) Description 01/06/2024 Lab Requisition [facility] Laboratory Services [address] [place] [address] [place] [address] [place] [address] Social History Tobacco Use Types [...] Procedure Name Priority Date/Time Associated Diagnosis Comments C. DIFFICILE DETECTION Routine 01/06/2024 12:55 PM CDT documented in this encounter Results * C. DIFFICILE DETECTION (01/06/2024 12:55 PM CDT) TOXIGENIC C DIFFICILE NOT DETECTED Not Detected 01/06/2024 4:40 PM CDT [facility] [employer] [facility] Stool STOOL SPECIMEN / Unknown Collection / Unknown 01/06/2024 12:55 PM CDT 01/06/2024 3:52 PM CDT Narrative [facility] [employer] [facility] - 01/06/2024 4:40 PM CDT This assay is used to detect Toxigenic C. difficile target(B gene) DNA sequences in unformed stool specimens. If toxigenic C. difficile is not detected, but clinical suspicion is high please consult ID for consultation and potential repeat testing. This test should not be used as a test of cure. us Brianda Leblanc MD MICROBIOLOGY - GENERAL ORDERABLE S Final Result [facility] LABORATORY SERVICES [facility]# [id number] [place] [address] documented in this encounter Visit Diagnoses Not on filedocumented in this encounter
== END 2025-01-14 09:17 | disposition home or self-care (01) ==
PROVIDERS: PCP Family Medicine; Visit Provider Orthopaedic Surgery
DX: Z96.611 Presence of right artificial shoulder joint (principal)
CPT/HCPCS: 73030

== ENCOUNTER 2025-01-17 13:55 | Outpatient (CLI) | payer OTHER, SELFPAY ==
[2025-01-17 13:05] LABS: Hematocrit 34.3 % (37.0-47.0); Hemoglobin 10.4 g/dL (12.0-15.0); Immature Granulocyte Percent A 0.4 % (0-0.5); Lymphocytes Absolute Auto 3.00 K/mm3 (0.9-3.2); Mean Corpuscular HGB Conc 30.3 g/dl (32-36); Mean Corpuscular Hemoglobin 26.9 pg (26-34); Mean Corpuscular Volume 88.6 fl (80-100); Nucleated Red Blood Cells Absolute Auto 0.000 K/mm3 (0.0-0.012); Nucleated Red Blood Cells Perc 0.0 % (0.0-0.2); Platelet Count Result 367 k/mm3 (150-375); Red Blood Count 3.87 M/mm3 (4.2-5.4); White Blood Count 9.9 K/mm3 (4.5-10.0)
[2025-01-17 13:24] LABS: CRP 3.3 mg/dL (<1.0)
[2025-01-17 14:08] LABS: Color Synovial Fluid Red (Colorless); Lymphocytes Synovial Fluid 16 %; Macrophages Synovial Fluid 12 %; Monocytes Synovial Fluid 11 %; Neutrophils Synovial Fluid 61 % (0-25); Nucleated Cell Synovial Fluid 80260 /uL (0-200); RBC Synovial Fluid 120000 /uL (0-0); Source Synovial Fluid Rt Shoulder Syn Flui
--- OUTSIDE RECORDS SUMMARY | 2025-01-17 16:04 | XMS_ITS | Encounter Summary ---
Author Organization [facility] Address [address] [place] [address] Care Team Providers Care Senior Accountant Analyst Name Role Phone Unavailable Primary Care Provider Unavailabl e Encounter Details Date Type Department Care Team (Late st Contact Info) Description 12/31/2023 Lab Requisition [facility] Laboratory Services [address] [place] [address] [place] [address] [place] [address] Social History Tobacco Use Types [...] - 145 mmol/L 12/31/2023 12:38 PM CDT [facility] LABORATORY SERVICES - [facility] POTASSIUM 3.8 3.4 - 5.1 mmol/L 12/31/2023 12:38 PM CDT [facility]ORY SERVICES - [facility] CHLORIDE 98 98 - 107 mmol/L 12/31/2023 12:38 PM CDT [facility] SERVICES - [facility] CO2 26 22 - 29 mmol/L 12/31/2023 12:38 PM CDT [facility] CALCIUM 8.8 8.6 - 10.4 mg/dL 12/31/2023 12:38 PM CDT [facility] BUN 17 6 - 20 mg/dL 12/31/2023 12:38 PM T [facility] CREATININE 0.64 0.51 - 0.95 mg/dL 12/31/2023 12:38 PM CDT [facility] GLUCOSE 138(H) 74 - 99 mg/dL 12/31/2023 12:38 PM CDT [facility] GFR >60 >=60 mL/min/1.7 3 sq meter 12/31/2023 12:38 PM T [facility] Comment:eGFR calculated with 2020 CKD-EPI equation. Vegetarian diet, extremely high or low muscle mass, and may affect results. Cystatin C with Glomerular Filtration Rate is a suitable alternative for these patients. ANION GAP 12 8 - 16 mmol/L 12/31/2023 12:38 PM T [facility] Blood Collection / Unknown 12/31/2023 5:30 AM CDT 12/31/2023 12:00 PM CDT Brianda Leblanc MD CHEMISTRY ORDERABLES Final Resul t [facility] CLIA# [id number] [id number] [place] [address] * (ABNORMAL) CBC WITH DIFFERENTIAL (12/31/2023 5:30 AM CDT) WBC 9.9 4.5 - 10.5 K/uL 12/31/2023 12:11 PM CDT [facility] RBC 2.65(L) 3.90 - 4.90 M/uL 12/31/2023 12:11 PM CDT [facility] HEMOGLOBIN 7.4(L) 11.8 - 14.8 g/dL 12/31/2023 12:11 PM CDT [facility] HEMATOCRIT 22.4(L) 35.5 - 44.0 % 12/31/2023 12:11 PM CDT [facility] LABORATORY SERVICES [facility] MCV 84.5 82.0 - 99.0 fL 12/31/2023 12:11 PM CDT [facility] SERVICES - [facility] MCH 28.1 27.8 - 34.5 pg 12/31/2023 12:11 PM CDT [facility]ORATORY SERVICES [facility] MCHC 33.3 32.5 - 35.5 g/dL 12/31/2023 12:11 PM CDT [facility]ATORY SERVICES [facility] RDW 15.3(H) 11.5 - 14.5 % 12/31/2023 12:11 PM CDT [facility]ORY SERVICES - [facility] PLATELETS 275 160 - 420 K/uL 12/31/2023 12:11 PM CDT [facility] LABORATORY SERVICES [facility] MPV 10.6 8.7 - 12.7 fL 12/31/2023 12:11 PM CDT [facility] SERVICES [facility] NEUTROPHILS 75 % 12/31/2023 12:11 PM CDT [facility] SERVICES - [facility] LYMPHOCYTES 14 % 12/31/2023 12:11 PM CDT [facility] SERVICES [facility] MONOCYTES 6 % 12/31/2023 12:11 PM CDT [facility] SERVICES [facility] EOSINOPHILS 5 % 12/31/2023 12:11 PM CDT [facility] SERVICES [facility] BASOPHILS 1 % 12/31/2023 12:11 PM CDT [facility]ORATORY SERVICES [facility] NEUTROPHIL ABSOLUTE 7.40(H) 1.90 - 7.00 K/uL 12/31/2023 12:11 PM CDT [facility]ORATORY SERVICES [facility] LYMPHOCYTE ABSOLUTE 1.40 0.70 - 4.50 K/uL 12/31/2023 12:11 PM CDT [facility] LABORATORY SERVICES [facility] MONOCYTE ABSOLUTE 0.60 0.10 - 1.30 K/uL 12/31/2023 12:11 PM CDT [facility] LABORATORY SERVICES [facility] EOSINOPHIL ABSOLUTE 0.40 0.00 - 0.70 K/uL 12/31/2023 12:11 PM CDT [facility] LABORATORY SERVICES [facility] BASOPHILS ABSOLUTE 0.10 0.00 - 0.20 K/uL 12/31/2023 12:11 PM CDT [facility] SERVICES - [facility] Blood Collection / Unknown 12/31/2023 5:30 AM CDT 12/31/2023 12:00 PM CDT us Brianda Leblanc MD HEMATOLOGY ORDERABLES Final Resu lt [facility]ORATORY SERVICES [facility] CLIA# [id number] [place] [address] documented in this encounter Visit Diagnoses Not on filedocumented in this encounter
--- OUTSIDE RECORDS SUMMARY | 2025-01-17 16:04 | XMS_ITS | Encounter Summary ---
Author Organization [facility] Address [address] [place] [address] Care Team Providers Care Telegraphic Instrument Supervisor Name Role Phone Unavailable Primary Care Provider Unavailabl e Encounter Details Date Type Department Care Team (Late st Contact Info) Description 01/04/2024 Lab Requisition [facility] Laboratory Services [address] [place] [address] [place] [address] [place] [address] Social History Tobacco Use Types [...] Leblanc MD CHEMISTRY ORDERABLES Final Resul t [facility] LABORATORY SERVICES [facility] CLIA# [id number] [place] [address] * (ABNORMAL) HEMOGLOBIN AND HEMATOCRIT (01/04/2024 2:12 AM CDT) HEMOGLOBIN 8.0(L) 11.8 - 14.8 g/dL 01/04/2024 8:52 AM CDT [facility] LABORATORY [facility] Comment:No clot , pt receive d blood HEMATOCRIT 24.7(L) 35.5 - 44.0 % 01/04/2024 8:52 AM CDT [facility] LABORATORY [facility] Blood Collection / Unknown 01/04/2024 2:12 AM CDT 01/04/2024 8:33 AM CDT us Brianda Leblanc MD HEMATOLOGY ORDERABLES Final Resu lt [facility] [employer] [facility] CLIA# [id number] [address] [place] [address] documented in this encounter Visit Diagnoses Not on filedocumented in this encounter
--- OUTSIDE RECORDS SUMMARY | 2025-01-17 16:04 | XMS_ITS | Encounter Summary ---
Author Organization [facility] Address [address] [place] [address] Care Team Providers Care Timers Inspector Name Role Phone Unavailable Primary Care Provider Unavailabl e Encounter Details Date Type Department Care Team (Late st Contact Info) Description 01/04/2024 Lab Requisition [facility] Laboratory Services [address] [place] [address] [place] [address] [place] [address] Social History Tobacco Use Types [...] - 17.0 ug/mL 01/04/2024 11:42 PM CDT [facility] [email or web address] [facility] Blood Collection / Unknown 01/04/2024 8:15 PM CDT 01/04/2024 11:07 PM CDT Brianda Leblanc MD CHEMISTRY ORDERABLES Final Resul t [facility] [email or web address] [facility] CLIA# [id number] [place] [address] documented in this encounter Visit Diagnoses Not on filedocumented in this encounter
--- OUTSIDE RECORDS SUMMARY | 2025-01-17 16:04 | XMS_ITS | Encounter Summary ---
Author Organization [facility] Address [address] [place] [address] Care Team Providers Care Granular Operator Name Role Phone Unavailable Primary Care Provider Unavailabl e Encounter Details Date Type Department Care Team (Late st Contact Info) Description 12/30/2023 Lab Requisition [facility] Laboratory Services [address] [place] [address] [place] [address] [place] [address] Social History Tobacco Use Types [...] - 17.0 ug/mL 12/30/2023 6:01 PM CDT [facility] Blood Collection / Unknown 12/30/2023 2:43 PM CDT 12/30/2023 5:30 PM CDT Brianda Leblanc MD CHEMISTRY ORDERABLES Final Resul t [facility] CLIA# [id number] [address] [place] [address] documented in this encounter Visit Diagnoses Not on filedocumented in this encounter
--- OUTSIDE RECORDS SUMMARY | 2025-01-17 16:04 | XMS_ITS | Encounter Summary ---
Author Organization [facility] Address [address] [place] [address] Care Team Providers Care Rice Drier Name Role Phone Unavailable Primary Care Provider Unavailabl e Encounter Details Date Type Department Care Team (Late st Contact Info) Description 12/27/2023 Lab Requisition [facility] Laboratory Services [address] [place] [address] [place] [address] [place] [address] Social History Tobacco Use Types [...] - 37.1 seconds 12/27/2023 9:05 AM CDT [facility] LABORATORY SERVICES [facility] Blood Collection / Unknown 12/27/2023 5:50 AM CDT 12/27/2023 7:57 AM CDT Brianda Leblanc MD HEMATOLOGY ORDERABLES Final Resu lt [facility] CLIA# [id number] [place] [address] * PROTIME-INR (12/27/2023 5:50 AM CDT) Pathologist [facility] PROTIME 14.7 11.5 - 14.7 Seconds 12/27/2023 9:05 AM CDT [facility] [employer] [facility] INR 1.1 0.9 - 1.1 12/27/2023 9:05 AM CDT [facility] [employer] [facility] Blood Collection / Unknown 12/27/2023 5:50 AM CDT 12/27/2023 7:57 AM CDT Brianda Leblanc MD HEMATOLOGY ORDERABLES Final Resu lt [facility] [employer] [facility] CLIA# [id number] [place] [address] * (ABNORMAL) CBC WITH DIFFERENTIAL (12/27/2023 5:50 AM CDT) WBC 9.2 4.5 - 10.5 K/uL 12/27/2023 8:50 AM CDT [facility] [employer] [facility] RBC 2.82(L) 3.90 - 4.90 M/uL 12/27/2023 8:50 AM CDT [facility] [employer] [facility] HEMOGLOBIN 7.9(L) 11.8 - 14.8 g/dL 12/27/2023 8:50 AM CDT [facility] [employer] [facility] HEMATOCRIT 24.4(L) 35.5 - 44.0 % 12/27/2023 8:50 AM CDT [facility] [employer] [facility] MCV 86.7 82.0 - 99.0 fL 12/27/2023 8:50 AM CDT [facility] [employer] [facility] MCH 27.9 27.8 - 34.5 pg 12/27/2023 8:50 AM CDT [facility] LABORATORY SERVICES [facility] MCHC 32.2(L) 32.5 - 35.5 g/dL 12/27/2023 8:50 AM CDT [facility] LABORATORY SERVICES [facility] RDW 15.6(H) 11.5 - 14.5 % 12/27/2023 8:50 AM CDT [facility] LABORATORY SERVICES [facility] PLATELETS 271 160 - 420 K/uL 12/27/2023 8:50 AM CDT [facility] LABORATORY SERVICES [facility] MPV 10.3 8.7 - 12.7 fL 12/27/2023 8:50 AM CDT [facility] LABORATORY SERVICES [facility] NEUTROPHILS 75 % 12/27/2023 8:50 AM CDT [facility] LABORATORY SERVICES [facility] LYMPHOCYTES 13 % 12/27/2023 8:50 AM CDT [facility] LABORATORY SERVICES [facility] MONOCYTES 7 % 12/27/2023 8:50 AM CDT [facility] LABORATORY SERVICES [facility] EOSINOPHILS 4 % 12/27/2023 8:50 AM CDT [facility] LABORATORY SERVICES [facility] BASOPHILS 1 % 12/27/2023 8:50 AM CDT [facility] LABORATORY SERVICES [facility] NEUTROPHIL ABSOLUTE 7.00 1.90 - 7.00 K/uL 12/27/2023 8:50 AM CDT [facility] LABORATORY SERVICES [facility] LYMPHOCYTE ABSOLUTE 1.20 0.70 - 4.50 K/uL 12/27/2023 8:50 AM CDT [facility] LABORATORY SERVICES [facility] MONOCYTE ABSOLUTE 0.60 0.10 - 1.30 K/uL 12/27/2023 8:50 AM CDT [facility] LABORATORY SERVICES [facility] EOSINOPHIL ABSOLUTE 0.40 0.00 - 0.70 K/uL 12/27/2023 8:50 AM CDT [facility] LABORATORY SERVICES [facility] BASOPHILS ABSOLUTE 0.10 0.00 - 0.20 K/uL 12/27/2023 8:50 AM CDT [facility] LABORATORY SERVICES [facility] Blood Collection / Unknown 12/27/2023 5:50 AM CDT 12/27/2023 7:57 AM CDT us Sreenu Ada MD HEMATOLOGY ORDERABLES Final Resu lt [facility] CLIA# [id number] [place] [address] * (ABNORMAL) COMPREHENSIVE METABOLIC PANEL (12/27/2023 5:50 AM CDT) SODIUM 142 136 - 145 mmol/L 12/27/2023 9:10 AM T [facility] POTASSIUM 3.1(L) 3.4 - 5.1 mmol/L 12/27/2023 9:10 AM T [facility] CHLORIDE 105 98 - 107 mmol/L 12/27/2023 9:10 AM T [facility] CO2 24 22 - 29 mmol/L 12/27/2023 9:10 AM [facility] CALCIUM 8.4(L) 8.6 - 10.4 mg/dL 12/27/2023 9:10 AM T [facility] BUN 23(H) 6 - 20 mg/dL 12/27/2023 9:10 AM T [facility] CREATININE 0.68 0.51 - 0.95 mg/dL 12/27/2023 9:10 AM [facility] GLUCOSE 109(H) 74 - 99 mg/dL 12/27/2023 9:10 AM T [facility] TOTAL PROTEIN 6.0(L) 6.3 - 8.7 g/dL 12/27/2023 9:10 AM T [facility] LABORATORY [facility] ALBUMIN 2.3(L) 3.5 - 5.2 g/dL 12/27/2023 9:10 AM T [facility] LABORATORY [facility] BILIRUBIN TOTAL <0.2(L) 0.2 - 1.1 mg/dL 12/27/2023 9:10 AM T [facility] LABORAT[facility] ALKALINE PHOSPHATASE 87 40 - 150 U/L 12/27/2023 9:10 AM T [facility] LABORAT[facility] AST 21 0 - 33 U/L 12/27/2023 9:10 AM CDT [facility] ALT 22 0 - 33 U/L 12/27/2023 9:10 AM T [facility] GFR >60 >=60 mL/min/1.7 3 sq meter 12/27/2023 9:10 AM T [facility] Comment:eGFR calculated with 2020 CKD-EPI equation. Vegetarian diet, extremely high or low muscle mass, and may affect results. Cystatin C with Glomerular Filtration Rate is a suitable alternative for these patients. ANION GAP 13 8 - 16 mmol/L 12/27/2023 9:10 AM T [facility] Blood Collection / Unknown 12/27/2023 5:50 AM CDT 12/27/2023 7:57 AM CDT Brianda Leblanc MD CHEMISTRY ORDERABLES Final Resul t [facility] CLIA# [id number] [place] [address] documented in this encounter Visit Diagnoses Not on filedocumented in this encounter
--- OUTSIDE RECORDS SUMMARY | 2025-01-17 16:04 | XMS_ITS | Encounter Summary ---
Author Organization [facility] Address [address] [place] [address] Care Team Providers Care Men'S Garment Fitter Name Role Phone Unavailable Primary Care Provider Unavailabl e Encounter Details Date Type Department Care Team (Late st Contact Info) Description 01/01/2024 Lab Requisition [facility] Laboratory Services [address] [place] [address] [place] [address] [place] [address] Social History Tobacco Use Types [...] - 17.0 ug/mL 01/01/2024 11:38 PM CDT [facility] LABORATORY SERVICES [facility] Blood Collection / Unknown 01/01/2024 8:40 PM CDT 01/01/2024 10:33 PM CDT Brianda Leblanc MD CHEMISTRY ORDERABLES Final Resul t [facility] CLIA# [id number] [address] [place] [address] * (ABNORMAL) CBC WITH DIFFERENTIAL (01/01/2024 8:40 PM CDT) [facility] WBC 8.5 4.5 - 10.5 K/uL 01/01/2024 10:43 PM CDT [facility] LABORATORY [facility] RBC 2.54(L) 3.90 - 4.90 M/uL 01/01/2024 10:43 PM CDT [facility] HEMOGLOBIN 7.2(L) 11.8 - 14.8 g/dL 01/01/2024 10:43 PM CDT [facility] HEMATOCRIT 21.8(L) 35.5 - 44.0 % 01/01/2024 10:43 PM CDT [facility] MCV 85.8 82.0 - 99.0 fL 01/01/2024 10:43 PM CDT [facility] MCH 28.5 27.8 - 34.5 pg 01/01/2024 10:43 PM CDT [facility] MCHC 33.2 32.5 - 35.5 g/dL 01/01/2024 10:43 PM CDT [facility] RDW 14.8(H) 11.5 - 14.5 % 01/01/2024 10:43 PM CDT [facility] PLATELETS 292 160 - 420 K/uL 01/01/2024 10:43 PM CDT [facility] MPV 10.5 8.7 - 12.7 fL 01/01/2024 10:43 PM CDT [facility] NEUTROPHILS 70 % 01/01/2024 10:43 PM CDT [facility] LABORATORY SERVICES [facility] LYMPHOCYTES 17 % 01/01/2024 10:43 PM CDT [facility] MONOCYTES 7 % 01/01/2024 10:43 PM CDT [facility] EOSINOPHILS 5 % 01/01/2024 10:43 PM CDT [facility] BASOPHILS 1 % 01/01/2024 10:43 PM CDT [facility] NEUTROPHIL ABSOLUTE 6.00 1.90 - 7.00 K/uL 01/01/2024 10:43 PM CDT [facility] LYMPHOCYTE ABSOLUTE 1.40 0.70 - 4.50 K/uL 01/01/2024 10:43 PM CDT [facility] LAB[facility] MONOCYTE ABSOLUTE 0.60 0.10 - 1.30 K/uL 01/01/2024 10:43 PM CDT [facility] LABORATORY SERVICES [facility] EOSINOPHIL ABSOLUTE 0.50 0.00 - 0.70 K/uL 01/01/2024 10:43 PM CDT [facility] LABORATORY SERVICES - [facility] BASOPHILS ABSOLUTE 0.10 0.00 - 0.20 K/uL 01/01/2024 10:43 PM CDT [facility] Blood Collection / Unknown 01/01/2024 8:40 PM CDT 01/01/2024 10:33 PM CDT us Brianda Leblanc MD HEMATOLOGY ORDERABLES Final Resu lt [facility] CLIA# [id number] [place] [address] * (ABNORMAL) BASIC METABOLIC PANEL (01/01/2024 8:40 PM CDT) SODIUM 138 136 - 145 mmol/L 01/01/2024 11:04 PM CDT [facility] POTASSIUM 3.9 3.4 - 5.1 mmol/L 01/01/2024 11:04 PM CDT [facility] CHLORIDE 99 98 - 107 mmol/L 01/01/2024 11:04 PM CDT [facility] CO2 28 22 - 29 mmol/L 01/01/2024 11:04 PM CDT [facility] CALCIUM 8.9 8.6 - 10.4 mg/dL 01/01/2024 11:04 PM CDT [facility] BUN 19 6 - 20 mg/dL 01/01/2024 11:04 PM CDT [facility] CREATININE 0.61 0.51 - 0.95 mg/dL 01/01/2024 11:04 PM CDT [facility] GLUCOSE 130(H) 74 - 99 mg/dL 01/01/2024 11:04 PM CDT [facility] GFR >60 >=60 mL/min/1.7 3 sq meter 01/01/2024 11:04 PM T [facility] Comment:eGFR calculated with 2020 CKD-EPI equation. Vegetarian diet, extremely high or low muscle mass, and may affect results. Cystatin C with Glomerular Filtration Rate is a suitable alternative for these patients. ANION GAP 11 8 - 16 mmol/L 01/01/2024 11:04 PM CDT [facility] Blood Collection / Unknown 01/01/2024 8:40 PM CDT 01/01/2024 10:33 PM CDT us Brianda Leblanc MD CHEMISTRY ORDERABLES Final Resul t [facility] CLIA# [id number] [place] [address] documented in this encounter Visit Diagnoses Not on filedocumented in this encounter
--- OUTSIDE RECORDS SUMMARY | 2025-01-17 16:04 | XMS_ITS | Encounter Summary ---
Author Organization [facility] Address [address] [place] [address] Care Team Providers Care Dispatch Lead Name Role Phone Unavailable Primary Care Provider Unavailabl e Encounter Details Date Type Department Care Team (Late st Contact Info) Description 01/03/2024 Lab Requisition [facility] Laboratory Services [address] [place] [address] [place] [address] [place] [address] Social History Tobacco Use Types [...] Range Estab ug/mL 01/03/2024 7:31 AM CDT [facility] [employer] [facility] Blood Collection / Unknown 01/03/2024 3:08 AM CDT 01/03/2024 7:00 AM CDT us Brianda Leblanc MD CHEMISTRY ORDERABLES Final Resul t [facility] [employer] [facility] CLIA# [id number] [place] [address] * (ABNORMAL) CBC WITH DIFFERENTIAL (01/03/2024 3:08 AM CDT) [facility] WBC 8.3 4.5 - 10.5 K/uL 01/03/2024 7:36 AM CDT [facility] RBC 2.45(L) 3.90 - 4.90 M/uL 01/03/2024 7:36 AM CDT [facility] HEMOGLOBIN 6.8(LL) 11.8 - 14.8 g/dL 01/03/2024 7:36 AM CDT [facility] LABORAT[facility] Comment:No clot Verified by repeat analysis. HEMATOCRIT 21.1(L) 35.5 - 44.0 % 01/03/2024 7:36 AM CDT [facility] MCV 86.1 82.0 - 99.0 fL 01/03/2024 7:36 AM CDT [facility] MCH 27.6(L) 27.8 - 34.5 pg 01/03/2024 7:36 AM CDT [facility] MCHC 32.0(L) 32.5 - 35.5 g/dL 01/03/2024 7:36 AM CDT [facility] RDW 15.4(H) 11.5 - 14.5 % 01/03/2024 7:36 AM CDT [facility] PLATELETS 311 160 - 420 K/uL 01/03/2024 7:36 AM CDT [facility] MPV 10.1 8.7 - 12.7 fL 01/03/2024 7:36 AM CDT [facility] NEUTROPHILS 67 % 01/03/2024 7:36 AM CDT [facility] LYMPHOCYTES 21 % 01/03/2024 7:36 AM CDT [facility] MONOCYTES 8 % 01/03/2024 7:36 AM CDT [facility] EOSINOPHILS 5 % 01/03/2024 7:36 AM CDT [facility] BASOPHILS 1 % 01/03/2024 7:36 AM CDT [facility] NEUTROPHIL ABSOLUTE 5.50 1.90 - 7.00 K/uL 01/03/2024 7:36 AM CDT [facility] LYMPHOCYTE ABSOLUTE 1.70 0.70 - 4.50 K/uL 01/03/2024 7:36 AM CDT [facility] MONOCYTE ABSOLUTE 0.60 0.10 - 1.30 K/uL 01/03/2024 7:36 AM CDT [facility] EOSINOPHIL ABSOLUTE 0.40 0.00 - 0.70 K/uL 01/03/2024 7:36 AM CDT [facility] LABORATORY [facility] BASOPHILS ABSOLUTE 0.10 0.00 - 0.20 K/uL 01/03/2024 7:36 AM CDT [facility] Blood Collection / Unknown 01/03/2024 3:08 AM CDT 01/03/2024 7:00 AM CDT us Brianda Leblanc MD HEMATOLOGY ORDERABLES Final Resu lt [facility] CLIA# [id number] [address] [place] [address] documented in this encounter Visit Diagnoses Not on filedocumented in this encounter
--- OUTSIDE RECORDS SUMMARY | 2025-01-17 16:04 | XMS_ITS | Encounter Summary ---
Author Organization [facility] Address [address] [place] [address] Care Team Providers Care Career Technical Supervisor Name Role Phone Unavailable Primary Care Provider Unavailabl e Encounter Details Date Type Department Care Team (Late st Contact Info) Description 01/03/2024 Lab Requisition [facility] Laboratory Services [address] [place] [address] [place] [address] [place] [address] Social History Tobacco Use Types [...] CELLS (01/03/2024 8:39 AM CDT) COMPONENT TYPE [id number] [facility] [employer] [facility] COMPONENT IDENTIFICATION [id number] [facility] LABORATORY SERVICES - [facility] UNIT ABO O [facility] LABORATORY SERVICES - [facility] UN[facility] RH POS [facility] LABORATORY SERVICES - [facility] CROSSMATCH Compatible [facility] [employer] [facility] COMPONENT STATUS Transfused ME [facility] LABORATORY SERVICES - [facility] COMPONENT EXPIRATION DATE/TIME [id number] [facility] LABORATORY [facility] COMPONENT CODING SYSTEM [address] [facility] [employer] [facility] VOLUME, BLOOD PRODUCT 350 [facility] 01/03/2024 8:39 AM CDT Brianda Leblanc MD LAB TRANSFUSION ORDERABLES Edite d Result - Final [facility] CLIA# [id number] [address] [place], [place] [id number] * TYPE AND SCREEN (01/03/2024 8:39 AM CDT) ABO GROUP O 01/03/2024 2:21 PM CDT [facility] RH (D) TYPE Positive 01/03/2024 2:21 PM CDT [facility] ANTIBODY SCREEN Negative 01/03/2024 2:21 PM CDT [facility] Blood Collection / Unknown 01/03/2024 8:39 AM CDT 01/03/2024 1:29 PM CDT Brianda Leblanc MD BLOOD BANK ORDERABLES Edited Res ult - Final [facility] CLIA# [id number] [address] [place] [address] documented in this encounter Visit Diagnoses Not on filedocumented in this encounter
--- OUTSIDE RECORDS SUMMARY | 2025-01-17 16:04 | XMS_ITS | Encounter Summary ---
Author Organization [facility] Address [address] [place] [address] Care Team Providers Care Construction Services Technician Name Role Phone Unavailable Primary Care Provider Unavailabl e Encounter Details Date Type Department Care Team (Late st Contact Info) Description 01/05/2024 Lab Requisition [facility] Laboratory Services [address] [place] [address] [place] [address] [place] [address] Social History Tobacco Use Types [...] PCR PANEL (01/05/2024 3:00 PM CDT) Pathologist [facility] Enterobacter cloacae complex by PCR DETECTED( A) Not Detected 01/06/2024 10:25 AM CDT [facility] Blood 01/05/2024 3:00 PM CDT 01/05/2024 4:17 PM CDT [facility] - 01/06/2024 10:25 AM CDT The Film [...] The following organisms are identified using the [employer] BCID Panel: Gram Positive Bacteria Enterococcus faecalis [...] MICROBIOLOGY - GENERAL ORDERABLE S Final Result [facility]# [id number] 5 [facility] [address] * (ABNORMAL) BLOOD CULTURE (01/05/2024 3:00 PM CDT) Pathologist [facility] BLOOD CULTURE Abnormal Gram Stain(A) 01/08/2024 9:49 AM CDT [facility] BLOOD CULTURE ENTEROBACTER CLOACAE COMPLEX(A) COSTA MCG/ML 01/08/2024 9:49 AM CDT [facility] Blood 01/05/2024 3:00 PM CDT 01/05/2024 4:17 PM CDT Narrative [facility] - 01/08/2024 9:49 AM CDT Gram stain and preliminary PCR results called to Raysa Phan RN, [facility], on 01/06/2024 at 10:25 AM and read [...] MICROBIOLOGY - GENERAL ORDERABLE S Final Result [facility] CLIA# [id number] [address] [place] [address] * (ABNORMAL) BLOOD CULTURE (01/05/2024 2:45 PM CDT) BLOOD CULTURE Abnormal Gram Stain(A) 01/08/2024 9:52 AM CDT [facility] BLOOD CULTURE ENTEROBACTER CLOACAE COMPLEX(A) COSTA MCG/ML 01/08/2024 9:52 AM CDT [facility] Comment:Susceptibility on pr evious culture. Blood 01/05/2024 2:45 PM CDT 01/05/2024 4:17 PM CDT Narrative [facility] - 01/08/2024 9:52 AM CDT Results called to Raysa Phan RN, [facility] [place], on 01/06/2024 at 10:27 AM and read [...] MICROBIOLOGY - GENERAL ORDERABLE S Final Result [facility] CLIA# [id number] [address] [place] [address] documented in this encounter Visit Diagnoses Not on filedocumented in this encounter
--- OUTSIDE RECORDS SUMMARY | 2025-01-17 16:04 | XMS_ITS | Encounter Summary ---
Author Organization [facility] Address [address] [place] [address] Care Team Providers Care Candy Rolling Machine Operator Name Role Phone Unavailable Primary Care Provider Unavailabl e Encounter Details Date Type Department Care Team (Late st Contact Info) Description 01/08/2024 Lab Requisition [facility] Laboratory Services [address] [place] [address] [place] [address] [place] [address] Social History Tobacco Use Types [...] Leblanc MD HEMATOLOGY ORDERABLES Final Resu lt [facility] LABORATORY SERVICES [facility] CLIA# [id number] [address] [place] [address] * (ABNORMAL) CBC WITH DIFFERENTIAL (01/08/2024 3:50 AM CDT) [facility] WBC 7.6 4.5 - 10.5 K/uL 01/08/2024 7:57 AM CDT [facility] LABORATORY [facility] RBC 2.62(L) 3.90 - 4.90 M/uL 01/08/2024 7:57 AM CDT [facility] LABORATORY [facility] HEMOGLOBIN 7.4(L) 11.8 - 14.8 g/dL 01/08/2024 7:57 AM CDT [facility] LABORATORY [facility] HEMATOCRIT 22.9(L) 35.5 - 44.0 % 01/08/2024 7:57 AM CDT [facility] LABORATORY [facility] MCV 87.2 82.0 - 99.0 fL 01/08/2024 7:57 AM CDT [facility] LABORATORY [facility] MCH 28.3 27.8 - 34.5 pg 01/08/2024 7:57 AM CDT [facility] LABORATORY [facility] MCHC 32.4(L) 32.5 - 35.5 g/dL 01/08/2024 7:57 AM CDT [facility] LABORATORY [facility] RDW 15.4(H) 11.5 - 14.5 % 01/08/2024 7:57 AM CDT [facility] LABORATORY [facility] PLATELETS 240 160 - 420 K/uL 01/08/2024 7:57 AM CDT [facility] LABORATORY [facility] MPV 10.2 8.7 - 12.7 fL 01/08/2024 7:57 AM CDT [facility] LABORATORY [facility] NEUTROPHILS 62 % 01/08/2024 7:57 AM CDT [facility] LABORATORY [facility] LYMPHOCYTES 20 % 01/08/2024 7:57 AM CDT [facility] LAB[facility] MONOCYTES 8 % 01/08/2024 7:57 AM CDT [facility] EOSINOPHILS 9 % 01/08/2024 7:57 AM CDT [facility] BASOPHILS 1 % 01/08/2024 7:57 AM CDT [facility]AT[facility] NEUTROPHIL ABSOLUTE 4.70 1.90 - 7.00 K/uL 01/08/2024 7:57 AM CDT [facility] LABORATORY SERVICES [facility] LYMPHOCYTE ABSOLUTE 1.50 0.70 - 4.50 K/uL 01/08/2024 7:57 AM CDT [facility] LABORATORY SERVICES - [facility] MONOCYTE ABSOLUTE 0.60 0.10 - 1.30 K/uL 01/08/2024 7:57 AM CDT [facility] LABORATORY SERVICES [facility] EOSINOPHIL ABSOLUTE 0.70 0.00 - 0.70 K/uL 01/08/2024 7:57 AM CDT [facility] LABORATORY SERVICES - [facility] BASOPHILS ABSOLUTE 0.10 0.00 - 0.20 K/uL 01/08/2024 7:57 AM CDT [facility] LABORATORY SERVICES [facility] Blood 01/08/2024 3:50 AM CDT 01/08/2024 7:39 AM CDT us Brianda Leblanc MD HEMATOLOGY ORDERABLES Final Resu lt [facility] LABORATORY [facility] CLIA# [id number] [address] [place] [address] * (ABNORMAL) COMPREHENSIVE METABOLIC PANEL (01/08/2024 3:50 AM CDT) SODIUM 138 136 - 145 mmol/L 01/08/2024 8:24 AM CDT [facility] POTASSIUM 3.8 3.4 - 5.1 mmol/L 01/08/2024 8:24 AM CDT [facility] LABORATORY SERVICES [facility] CHLORIDE 102 98 - 107 mmol/L 01/08/2024 8:24 AM CDT [facility] LABORATORY SERVICES [facility] CO2 25 22 - 29 mmol/L 01/08/2024 8:24 AM CDT [facility] LAB[facility]ATORY [facility] CALCIUM 9.0 8.6 - 10.4 mg/dL 01/08/2024 8:24 AM CDT [facility] BUN 18 6 - 20 mg/dL 01/08/2024 8:24 AM CDT [facility] CREATININE 0.48(L) 0.51 - 0.95 mg/dL 01/08/2024 8:24 AM CDT [facility] GLUCOSE 127(H) 74 - 99 mg/dL 01/08/2024 8:24 AM CDT [facility] TOTAL PROTEIN 6.3 6.3 - 8.7 g/dL 01/08/2024 8:24 AM T [facility] ALBUMIN 2.5(L) 3.5 - 5.2 g/dL 01/08/2024 8:24 AM CDT [facility] BILIRUBIN TOTAL 0.2 0.2 - 1.1 mg/dL 01/08/2024 8:24 AM T [facility] ALKALINE PHOSPHATASE 210(H) 40 - 150 U/L 01/08/2024 8:24 AM CDT [facility] AST 20 0 - 33 U/L 01/08/2024 8:24 AM CDT [facility] ALT 16 0 - 33 U/L 01/08/2024 8:24 AM T [facility] GFR >60 >=60 mL/min/1.7 3 sq meter 01/08/2024 8:24 AM [facility] Comment:eGFR calculated with 2020 CKD-EPI equation. Vegetarian diet, extremely high or low muscle mass, and may affect results. Cystatin C with Glomerular Filtration Rate is a suitable alternative for these patients. ANION GAP 11 8 - 16 mmol/L 01/08/2024 8:24 AM T [facility] Blood 01/08/2024 3:50 AM CDT 01/08/2024 7:39 AM CDT us Brianda Leblanc MD CHEMISTRY ORDERABLES Final Resul t [facility] CLIA# [id number] [place] [address] documented in this encounter Visit Diagnoses Not on filedocumented in this encounter
--- OUTSIDE RECORDS SUMMARY | 2025-01-17 16:04 | XMS_ITS | Encounter Summary ---
Author Organization [facility] Address [address] [place] [address] Care Team Providers Care Olive Packer Name Role Phone Unavailable Primary Care Provider Unavailabl e Encounter Details Date Type Department Care Team (Late st Contact Info) Description 01/05/2024 Lab Requisition [facility] Laboratory Services [address] [place] [address] [place] [address] [place] [address] Social History Tobacco Use Types [...] WITH DIFFERENTIAL (01/05/2024 3:08 AM CDT) Pathologist [facility] WBC 9.6 4.5 - 10.5 K/uL 01/05/2024 7:13 AM CDT [facility] LABORATORY SERVICES - [facility] RBC 3.08(L) 3.90 - 4.90 M/uL 01/05/2024 7:13 AM CDT [facility] HEMOGLOBIN 8.7(L) 11.8 - 14.8 g/dL 01/05/2024 7:13 AM CDT [facility]OR[facility]ORY [facility] - [facility] HEMATOCRIT 26.7(L) 35.5 - 44.0 % 01/05/2024 7:13 AM CDT [facility] LABORATORY SERVICES [facility] MCV 86.9 82.0 - 99.0 fL 01/05/2024 7:13 AM CDT [facility] LABORATORY SERVICES [facility] MCH 28.3 27.8 - 34.5 pg 01/05/2024 7:13 AM CDT [facility] LABORATORY SERVICES [facility] MCHC 32.5 32.5 - 35.5 g/dL 01/05/2024 7:13 AM CDT [facility] LABORATORY SERVICES [facility] RDW 15.4(H) 11.5 - 14.5 % 01/05/2024 7:13 AM CDT [facility] LABORATORY SERVICES - [facility] PLATELETS 342 160 - 420 K/uL 01/05/2024 7:13 AM CDT [facility] LABORATORY SERVICES [facility] MPV 10.5 8.7 - 12.7 fL 01/05/2024 7:13 AM CDT [facility] LABORATORY SERVICES [facility] NEUTROPHILS 76 % 01/05/2024 7:13 AM CDT [facility]ORATORY SERVICES [facility] LYMPHOCYTES 13 % 01/05/2024 7:13 AM CDT [facility]ORATORY SERVICES [facility] MONOCYTES 8 % 01/05/2024 7:13 AM CDT [facility]ORATORY SERVICES [facility] EOSINOPHILS 3 % 01/05/2024 7:13 AM CDT [facility]ORATORY SERVICES [facility] BASOPHILS 1 % 01/05/2024 7:13 AM CDT [facility]ORATORY SERVICES [facility] NEUTROPHIL ABSOLUTE 7.30(H) 1.90 - 7.00 K/uL 01/05/2024 7:13 AM CDT [facility] LABORATORY SERVICES [facility] LYMPHOCYTE ABSOLUTE 1.20 0.70 - 4.50 K/uL 01/05/2024 7:13 AM CDT [facility] LABORATORY SERVICES [facility] MONOCYTE ABSOLUTE 0.70 0.10 - 1.30 K/uL 01/05/2024 7:13 AM CDT [facility] LABORATORY SERVICES [facility] EOSINOPHIL ABSOLUTE 0.30 0.00 - 0.70 K/uL 01/05/2024 7:13 AM CDT [facility] LABORATORY SERVICES [facility] BASOPHILS ABSOLUTE 0.10 0.00 - 0.20 K/uL 01/05/2024 7:13 AM T [facility] [employer] [facility] Blood Collection / Unknown 01/05/2024 3:08 AM CDT 01/05/2024 7:03 AM CDT Brianda Leblanc MD HEMATOLOGY ORDERABLES Final Resu lt [facility] CLIA# [id number] [place] [address] * (ABNORMAL) BASIC METABOLIC PANEL (01/05/2024 3:08 AM CDT) SODIUM 136 136 - 145 mmol/L 01/05/2024 7:41 AM T [facility] POTASSIUM 4.4 3.4 - 5.1 mmol/L 01/05/2024 7:41 AM T [facility] CHLORIDE 98 98 - 107 mmol/L 01/05/2024 7:41 AM T [facility] CO2 24 22 - 29 mmol/L 01/05/2024 7:41 AM T [facility] CALCIUM 9.2 8.6 - 10.4 mg/dL 01/05/2024 7:41 AM T [facility] BUN 18 6 - 20 mg/dL 01/05/2024 7:41 AM [facility] CREATININE 0.63 0.51 - 0.95 mg/dL 01/05/2024 7:41 AM T [facility] GLUCOSE 142(H) 74 - 99 mg/dL 01/05/2024 7:41 AM T [facility] GFR >60 >=60 mL/min/1.7 3 sq meter 01/05/2024 7:41 AM T [facility] Comment:eGFR calculated with 2020 CKD-EPI equation. Vegetarian diet, extremely high or low muscle mass, and may affect results. Cystatin C with Glomerular Filtration Rate is a suitable alternative for these patients. ANION GAP 14 8 - 16 mmol/L 01/05/2024 7:41 AM CDT [facility] LABORATORY SERVICES [facility] Blood Collection / Unknown 01/05/2024 3:08 AM CDT 01/05/2024 7:03 AM CDT us Brianda Leblanc MD CHEMISTRY ORDERABLES Final Resul t [facility] LABORATORY SERVICES [facility] CLIA# [id number] [place] [address] documented in this encounter Visit Diagnoses Not on filedocumented in this encounter
--- OUTSIDE RECORDS SUMMARY | 2025-01-17 16:05 | XMS_ITS | Encounter Summary ---
Author Organization [facility] Address [address] [place] [address] Care Team Providers Care Senior Cytotechnologist Name Role Phone Unavailable Primary Care Provider Unavailabl e Encounter Details Date Type Department Care Team (Late st Contact Info) Description 01/06/2024 Lab Requisition [facility] Laboratory Services [address] [place] [address] [place] [address] [place] [address] Social History Tobacco Use Types [...] Date/Time Associated Diagnosis Comments EXTRA TUBE (URINE MURPHY) Routine 01/06/2024 1:30 PM CDT URINALYSIS WITH REFLEX CULTURE Routine 01/06/2024 1:30 PM CDT URINE CULTURE Routine 01/06/2024 1:30 PM CDT documented in this encounter Results * (ABNORMAL) URINE CULTURE (01/06/2024 1:30 PM CDT) CULTURE FANI ALBICANS(A) COSTA MCG/ML 01/08/2024 8:00 AM CDT [facility] Urine URINE SPECIMEN OBTAINED BY CLEAN CATCH PROCEDURE / Unknown Collection / Unknown 01/06/2024 1:30 PM CDT 01/06/2024 4:08 PM CDT us Brianda Leblanc MD MICROBIOLOGY - GENERAL ORDERABLE S Final Result [facility] CLIA# [id number] [address] [place] [address] * EXTRA TUBE (URINE MURPHY) (01/06/2024 1:30 PM CDT) Urine URINE SPECIMEN OBTAINED BY CLEAN CATCH PROCEDURE / Unknown 01/06/2024 1:30 PM CDT 01/06/2024 3:44 PM CDT us Brianda Leblanc MD URINE ORDERABLES Final Result [facility] LABORATORY SERVICES - [facility] CLIA# [id number] [place] [address] * (ABNORMAL) URINALYSIS WITH REFLEX CULTURE (01/06/2024 1:30 PM CDT) COLOR UA Yellow Pale to Dark Yellow 01/06/2024 4:08 PM CDT [facility] CLARITY UA Slightly Cloudy(A) Clear 01/06/2024 4:08 PM CDT [facility] SPECIFIC GRAVITY UA 1.014 1.003 - 1.035 01/06/2024 4:08 PM CDT [facility] PH UA 6.0 5.0 - 8.0 01/06/2024 4:08 PM CDT [facility] LEUKOCYTE ESTERASE UA 2+(A) Negative 01/06/2024 4:08 PM CDT [facility] NITRITE UA Negative Negative 01/06/2024 4:08 PM CDT [facility] PROTEIN UA 1+(A) Negative 01/06/2024 4:08 PM CDT [facility] GLUCOSE UA Negative Negative 01/06/2024 4:08 PM CDT [facility] KETONES UA Negative Negative 01/06/2024 4:08 PM CDT [facility] UROBILINOGEN UA Normal <2.0 mg/dL 4:08 PM CDT [facility] BILIRUBIN UA Negative Negative 01/06/2024 4:08 PM CDT [facility] BLOOD UA Negative Negative 01/06/2024 4:08 PM CDT [facility] Comment:Ascorbic acid may ca use false negative results for blood. A microscopic review was reflexed to rule out this interference. WBC UA >100(A) 0 - 2 /hpf 01/06/2024 4:08 PM CDT [facility] RBC UA 3-5(A) 0 - 2 /hpf 01/06/2024 4:08 PM CDT [facility] BACTERIA UA 1+(A) Negative /hpf 01/06/2024 4:08 PM CDT [facility] EPITHELIAL CELLS, URINE 0-5 0 - 5 /hpf 01/06/2024 4:08 PM CDT [facility] HYALINE CAST None Seen None Seen, 0-2 /lpf 01/06/2024 4:08 PM CDT [facility] Ascorbic Acid UA Positive(A) Negative 024 4:08 PM CDT [facility] Urine URINE SPECIMEN OBTAINED BY CLEAN CATCH PROCEDURE / Unknown Collection / Unknown 01/06/2024 1:30 PM CDT 01/06/2024 3:44 PM CDT Narrative [facility] - 01/06/2024 4:08 PM CDT Based on results, a urine culture has been reflexed. us Brianda Leblanc MD URINE ORDERABLES Final Result [facility] CLIA# [id number] [place] [address] documented in this encounter Visit Diagnoses Not on filedocumented in this encounter
--- OUTSIDE RECORDS SUMMARY | 2025-01-17 16:05 | XMS_ITS | Encounter Summary ---
Author Organization [facility] Address [address] [place] [address] Care Team Providers Care Dietary Director Name Role Phone Unavailable Primary Care Provider Unavailabl e Encounter Details Date Type Department Care Team (Late st Contact Info) Description 01/11/2024 Lab Requisition [facility] Laboratory Services [address] [place] [address] [place] [address] [place] [address] Social History Tobacco Use Types [...] - 10.5 K/uL 01/11/2024 8:58 AM CDT [facility] LAB[facility]ATORY [facility] RBC 2.72(L) 3.90 - 4.90 M/uL 01/11/2024 8:58 AM CDT [facility] HEMOGLOBIN 7.8(L) 11.8 - 14.8 g/dL 01/11/2024 8:58 AM CDT [facility] LABORATORY [facility] HEMATOCRIT 23.8(L) 35.5 - 44.0 % 01/11/2024 8:58 AM CDT [facility] LABORATORY SERVICES [facility] MCV 87.4 82.0 - 99.0 fL 01/11/2024 8:58 AM CDT [facility] LABORATORY SERVICES [facility] MCH 28.5 27.8 - 34.5 pg 01/11/2024 8:58 AM CDT [facility] LABORATORY SERVICES [facility] MCHC 32.6 32.5 - 35.5 g/dL 01/11/2024 8:58 AM CDT [facility] LABORATORY SERVICES [facility] RDW 16.2(H) 11.5 - 14.5 % 01/11/2024 8:58 AM CDT [facility] LABORATORY SERVICES [facility] PLATELETS 270 160 - 420 K/uL 01/11/2024 8:58 AM CDT [facility] LABORATORY SERVICES [facility] MPV 10.2 8.7 - 12.7 fL 01/11/2024 8:58 AM CDT [facility] LABORATORY SERVICES [facility] NEUTROPHILS 65 % 01/11/2024 8:58 AM CDT [facility] LABORATORY SERVICES [facility] LYMPHOCYTES 20 % 01/11/2024 8:58 AM CDT [facility] LABORATORY SERVICES [facility] MONOCYTES 8 % 01/11/2024 8:58 AM CDT [facility] LABORATORY SERVICES [facility] EOSINOPHILS 6 % 01/11/2024 8:58 AM CDT [facility] LABORATORY SERVICES [facility] BASOPHILS 1 % 01/11/2024 8:58 AM CDT [facility] LABORATORY SERVICES [facility] NEUTROPHIL ABSOLUTE 7.30(H) 1.90 - 7.00 K/uL 01/11/2024 8:58 AM CDT [facility] LABORATORY SERVICES [facility] LYMPHOCYTE ABSOLUTE 2.30 0.70 - 4.50 K/uL 01/11/2024 8:58 AM CDT [facility] LABORATORY SERVICES [facility] MONOCYTE ABSOLUTE 0.90 0.10 - 1.30 K/uL 01/11/2024 8:58 AM CDT [facility] LABORATORY SERVICES [facility] EOSINOPHIL ABSOLUTE 0.70 0.00 - 0.70 K/uL 01/11/2024 8:58 AM CDT [facility] LABORATORY SERVICES [facility] BASOPHILS ABSOLUTE 0.10 0.00 - 0.20 K/uL 01/11/2024 8:58 AM CDT [facility] Blood Collection / Unknown 01/11/2024 3:00 AM CDT 01/11/2024 8:17 AM CDT us Brianda Leblanc MD HEMATOLOGY ORDERABLES Final Resu lt [facility] CLIA# [id number] [place] [address] * (ABNORMAL) BASIC METABOLIC PANEL (01/11/2024 3:00 AM CDT) SODIUM 137 136 - 145 mmol/L 01/11/2024 9:10 AM T [facility] POTASSIUM 4.5 3.4 - 5.1 mmol/L 01/11/2024 9:10 AM [facility] Comment:Slightly hemolyzed. Result may be falsely elevated. CHLORIDE 98 98 - 107 mmol/L 01/11/2024 9:10 AM T [facility] CO2 28 22 - 29 mmol/L 01/11/2024 9:10 AM T [facility] CALCIUM 9.8 8.6 - 10.4 mg/dL 01/11/2024 9:10 AM [facility] BUN 16 6 - 20 mg/dL 01/11/2024 9:10 AM T [facility] CREATININE 0.69 0.51 - 0.95 mg/dL 01/11/2024 9:10 AM T [facility] GLUCOSE 71(L) 74 - 99 mg/dL 01/11/2024 9:10 AM T [facility] GFR >60 >=60 mL/min/1.7 3 sq meter 01/11/2024 9:10 AM T [facility] Comment:eGFR calculated with 2020 CKD-EPI equation. Vegetarian diet, extremely high or low muscle mass, and may affect results. Cystatin C with Glomerular Filtration Rate is a suitable alternative for these patients. ANION GAP 11 8 - 16 mmol/L 01/11/2024 9:10 AM CDT [facility] LABORATORY [facility] Blood Collection / Unknown 01/11/2024 3:00 AM CDT 01/11/2024 8:17 AM CDT Brianda Leblanc MD CHEMISTRY ORDERABLES Final Resul t [facility] LABORATORY SERVICES [facility] CLIA# [id number] [place] [address] documented in this encounter Visit Diagnoses Not on filedocumented in this encounter
--- OUTSIDE RECORDS SUMMARY | 2025-01-17 16:05 | XMS_ITS | Encounter Summary ---
Author Organization [facility] Address [address] [place] [address] Care Team Providers Care Rn Dermatology Name Role Phone Unavailable Primary Care Provider Unavailabl e Encounter Details Date Type Department Care Team (Late st Contact Info) Description 01/20/2024 Lab Requisition [facility] Laboratory Services [address] [place] [address] [place] [address] [place] [address] Social History Tobacco Use Types [...] - 10.5 K/uL 01/20/2024 7:36 AM CDT [facility] LABORATORY [facility] RBC 2.89(L) 3.90 - 4.90 M/uL 01/20/2024 7:36 AM CDT [facility] HEMOGLOBIN 8.4(L) 11.8 - 14.8 g/dL 01/20/2024 7:36 AM CDT [facility] HEMATOCRIT 25.0(L) 35.5 - 44.0 % 01/20/2024 7:36 AM CDT [facility] LABORATORY SERVICES [facility] MCV 86.4 82.0 - 99.0 fL 01/20/2024 7:36 AM CDT [facility] LABORATORY SERVICES [facility] MCH 29.0 27.8 - 34.5 pg 01/20/2024 7:36 AM CDT [facility] LABORATORY SERVICES [facility] MCHC 33.6 32.5 - 35.5 g/dL 01/20/2024 7:36 AM CDT [facility] LABORATORY SERVICES [facility] RDW 16.2(H) 11.5 - 14.5 % 01/20/2024 7:36 AM CDT [facility] LABORATORY SERVICES [facility] PLATELETS 406 160 - 420 K/uL 01/20/2024 7:36 AM CDT [facility] LABORATORY SERVICES [facility] MPV 9.5 8.7 - 12.7 fL 01/20/2024 7:36 AM CDT [facility] LABORATORY SERVICES [facility] NEUTROPHILS 60 % 01/20/2024 7:36 AM CDT [facility] LABORATORY SERVICES [facility] LYMPHOCYTES 24 % 01/20/2024 7:36 AM CDT [facility] LABORATORY SERVICES [facility] MONOCYTES 10 % 01/20/2024 7:36 AM CDT [facility] LABORATORY SERVICES [facility] EOSINOPHILS 6 % 01/20/2024 7:36 AM CDT [facility] LABORATORY SERVICES [facility] BASOPHILS 1 % 01/20/2024 7:36 AM CDT [facility] LABORATORY SERVICES [facility] NEUTROPHIL ABSOLUTE 6.20 1.90 - 7.00 K/uL 01/20/2024 7:36 AM CDT [facility] LABORATORY SERVICES [facility] LYMPHOCYTE ABSOLUTE 2.50 0.70 - 4.50 K/uL 01/20/2024 7:36 AM CDT [facility] LABORATORY SERVICES [facility] MONOCYTE ABSOLUTE 1.00 0.10 - 1.30 K/uL 01/20/2024 7:36 AM CDT [facility] LABORATORY SERVICES [facility] EOSINOPHIL ABSOLUTE 0.60 0.00 - 0.70 K/uL 01/20/2024 7:36 AM CDT [facility] LABORATORY SERVICES [facility] BASOPHILS ABSOLUTE 0.10 0.00 - 0.20 K/uL 01/20/2024 7:36 AM CDT [facility] Blood 01/20/2024 4:00 AM CDT 01/20/2024 7:16 AM CDT Brianda Leblanc MD HEMATOLOGY ORDERABLES Final Resu lt [facility] CLIA# [id number] [place] [address] * (ABNORMAL) BASIC METABOLIC PANEL (01/20/2024 4:00 AM CDT) SODIUM 131(L) 136 - 145 mmol/L 01/20/2024 8:01 AM [facility] POTASSIUM 4.1 3.4 - 5.1 mmol/L 01/20/2024 8:01 AM [facility] CHLORIDE 95(L) 98 - 107 mmol/L 01/20/2024 8:01 AM [facility] CO2 25 22 - 29 mmol/L 01/20/2024 8:01 AM [facility] CALCIUM 10.1 8.6 - 10.4 mg/dL 01/20/2024 8:01 AM [facility] BUN 16 6 - 20 mg/dL 01/20/2024 8:01 AM [facility] CREATININE 0.65 0.51 - 0.95 mg/dL 01/20/2024 8:01 AM [facility] GLUCOSE 93 74 - 99 mg/dL 01/20/2024 8:01 AM [facility] GFR >60 >=60 mL/min/1.7 3 sq meter 01/20/2024 8:01 AM [facility] Comment:eGFR calculated with 2020 CKD-EPI equation. Vegetarian diet, extremely high or low muscle mass, and may affect results. Cystatin C with Glomerular Filtration Rate is a suitable alternative for these patients. ANION GAP 11 8 - 16 mmol/L 01/20/2024 8:01 AM CDT [facility] LABORATORY SERVICES [facility] Blood 01/20/2024 4:00 AM CDT 01/20/2024 7:16 AM CDT Brianda Leblanc MD CHEMISTRY ORDERABLES Final Resul t [facility] LABORATORY SERVICES [facility] CLIA# [id number] [address] [place] [address] documented in this encounter Visit Diagnoses Not on filedocumented in this encounter
--- OUTSIDE RECORDS SUMMARY | 2025-01-17 16:05 | XMS_ITS | Clinical Summary ---
Author Organization [facility] [employer] Address [address] [place] [address] Care Team Providers Care Facility Coordinator Name Role Phone Shivam Chester MD Unavailable [phone] Reid Engle MD Primary Care Provider [phone] Source Comments [facility],non-owned Affiliates and Associated Physician Practices is amultiple site organization consisting of ambulatory clinics and hospital sitesin [place], [place], [place] and [place]. This disclosure is being madepursuant to the Care Everywhere program and may not contain all information available regarding this patient. Last updated 17.[facility] [employer] 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
--- OUTSIDE RECORDS SUMMARY | 2025-01-17 16:05 | XMS_ITS | Encounter Summary ---
Author Organization [facility] Address [address] [place] [address] Care Team Providers Care Forest Botany Instructor Name Role Phone Unavailable Primary Care Provider Unavailabl e Encounter Details Date Type Department Care Team (Late st Contact Info) Description 01/14/2024 Lab Requisition [facility] Laboratory Services [address] [place] [address] [place] [address] [place] [address] Social History Tobacco Use Types [...] - 10.5 K/uL 01/14/2024 9:11 AM CDT [facility] RBC 2.96(L) 3.90 - 4.90 M/uL 01/14/2024 9:11 AM CDT [facility] HEMOGLOBIN 8.5(L) 11.8 - 14.8 g/dL 01/14/2024 9:11 AM CDT [facility] HEMATOCRIT 25.7(L) 35.5 - 44.0 % 01/14/2024 9:11 AM CDT [facility] MCV 86.8 82.0 - 99.0 fL 01/14/2024 9:11 AM CDT [facility] MCH 28.8 27.8 - 34.5 pg 01/14/2024 9:11 AM CDT [facility] MCHC 33.1 32.5 - 35.5 g/dL 01/14/2024 9:11 AM CDT [facility] RDW 16.8(H) 11.5 - 14.5 % 01/14/2024 9:11 AM CDT [facility] PLATELETS 376 160 - 420 K/uL 01/14/2024 9:11 AM CDT [facility] MPV 10.2 8.7 - 12.7 fL 01/14/2024 9:11 AM CDT [facility] NEUTROPHILS 61 % 01/14/2024 9:11 AM CDT [facility] LYMPHOCYTES 25 % 01/14/2024 9:11 AM CDT [facility] MONOCYTES 9 % 01/14/2024 9:11 AM CDT [facility] EOSINOPHILS 4 % 01/14/2024 9:11 AM CDT [facility] BASOPHILS 1 % 01/14/2024 9:11 AM CDT [facility] NEUTROPHIL ABSOLUTE 7.00 1.90 - 7.00 K/uL 01/14/2024 9:11 AM CDT [facility] LYMPHOCYTE ABSOLUTE 2.90 0.70 - 4.50 K/uL 01/14/2024 9:11 AM CDT [facility] MONOCYTE ABSOLUTE 1.10 0.10 - 1.30 K/uL 01/14/2024 9:11 AM CDT [facility] EOSINOPHIL ABSOLUTE 0.50 0.00 - 0.70 K/uL 01/14/2024 9:11 AM CDT [facility] BASOPHILS ABSOLUTE 0.10 0.00 - 0.20 K/uL 01/14/2024 9:11 AM CDT [facility] Blood Collection / Unknown 01/14/2024 3:00 AM CDT 01/14/2024 8:52 AM CDT Brianda Leblanc MD HEMATOLOGY ORDERABLES Final Resu lt [facility] CLIA# [id number] [address] [place] [address] * (ABNORMAL) BASIC METABOLIC PANEL (01/14/2024 3:00 AM CDT) SODIUM 132(L) 136 - 145 mmol/L 01/14/2024 9:30 AM T [facility] POTASSIUM 4.6 3.4 - 5.1 mmol/L 01/14/2024 9:30 AM T [facility] CHLORIDE 94(L) 98 - 107 mmol/L 01/14/2024 9:30 AM T [facility] CO2 24 22 - 29 mmol/L 01/14/2024 9:30 AM T [facility] CALCIUM 10.0 8.6 - 10.4 mg/dL 01/14/2024 9:30 AM T [facility] BUN 21(H) 6 - 20 mg/dL 01/14/2024 9:30 AM T [facility] CREATININE 0.75 0.51 - 0.95 mg/dL 01/14/2024 9:30 AM T [facility] GLUCOSE 85 74 - 99 mg/dL 01/14/2024 9:30 AM T [facility] GFR >60 >=60 mL/min/1.7 3 sq meter 01/14/2024 9:30 AM T [facility] Comment:eGFR calculated with 2020 CKD-EPI equation. Vegetarian diet, extremely high or low muscle mass, and may affect results. Cystatin C with Glomerular Filtration Rate is a suitable alternative for these patients. ANION GAP 14 8 - 16 mmol/L 01/14/2024 9:30 AM CDT [facility] Blood Collection / Unknown 01/14/2024 3:00 AM CDT 01/14/2024 8:52 AM CDT us Brianda Leblanc MD CHEMISTRY ORDERABLES Final Resul t [facility] CLIA# [id number] [place] [address] documented in this encounter Visit Diagnoses Not on filedocumented in this encounter
--- OUTSIDE RECORDS SUMMARY | 2025-01-17 16:05 | XMS_ITS | Encounter Summary ---
Author Organization [facility] Address [address] [place] [address] Care Team Providers Care Camp Assistant Name Role Phone Unavailable Primary Care Provider Unavailabl e Encounter Details Date Type Department Care Team (Late st Contact Info) Description 01/06/2024 Lab Requisition [facility] Laboratory Services [address] [place] [address] [place] [address] [place] [address] Social History Tobacco Use Types [...] DETECTED Not Detected 01/06/2024 4:40 PM CDT [facility] [employer] [facility] Stool STOOL SPECIMEN / Unknown Collection / Unknown 01/06/2024 12:55 PM CDT 01/06/2024 3:52 PM CDT Narrative [facility] [employer] [facility] - 01/06/2024 4:40 PM CDT This assay [...] MICROBIOLOGY - GENERAL ORDERABLE S Final Result [facility] LABORATORY SERVICES [facility]# [id number] [place] [address] documented in this encounter Visit Diagnoses Not on filedocumented in this encounter
--- OUTSIDE RECORDS SUMMARY | 2025-01-17 16:05 | XMS_ITS | Encounter Summary ---
Author Organization [facility] Address [address] [place] [address] Care Team Providers Care Propagator Name Role Phone Unavailable Primary Care Provider Unavailabl e Encounter Details Date Type Department Care Team (Late st Contact Info) Description 01/07/2024 Lab Requisition [facility] Laboratory Services [address] [place] [address] [place] [address] [place] [address] Social History Tobacco Use Types [...] CULTURE No growth 01/12/2024 9:54 AM CDT [facility]AT[facility] Blood Collection / Unknown 01/07/2024 2:15 AM CDT 01/07/2024 4:13 AM CDT Brianda Leblanc MD MICROBIOLOGY - GENERAL ORDERABLE S Final Result [facility] [employer] [facility] CLIA# [id number] [address] [place] [address] * PREPARE RED BLOOD CELLS (01/07/2024 2:00 AM CDT) Pathologist [facility] COMPONENT TYPE [id number] [facility] LABORATORY [facility] COMPONENT IDENTIFICATION [id number] [facility] LABORATORY SERVICES - [facility] UNIT ABO O [facility] LABORATORY SERVICES - [facility] UNIT RH POS [facility] LABORATORY SERVICES - [facility] CROSSMATCH Compatible [facility] LABORATORY SERVICES [facility] COMPONENT STATUS Transfused ME [facility] LABORATORY SERVICES - [facility] COMPONENT EXPIRATION DATE/TIME [id number] [facility] LABORATORY [facility] - [facility] COMPONENT CODING SYSTEM 5100 [facility]ORY [facility] VOLUME, BLOOD PRODUCT 350 [facility] 01/07/2024 2:00 AM CDT Brianda Leblanc MD LAB TRANSFUSION ORDERABLES Edite d Result - Final [facility] [employer] [facility] CLIA# [id number] [place] [address] * BLOOD CULTURE (01/07/2024 2:00 AM CDT) BLOOD CULTURE No growth 01/12/2024 9:54 AM CDT [facility] Blood Collection / Unknown 01/07/2024 2:00 AM CDT 01/07/2024 4:13 AM CDT Brianda Leblanc MD MICROBIOLOGY - GENERAL ORDERABLE S Final Result [facility] CLIA# [id number] [address] [place] [address] * TYPE AND SCREEN (01/07/2024 2:00 AM CDT) Pathologist [facility] ANTIBODY SCREEN Negative 01/07/2024 5:05 AM CDT [facility] LABORATORY [facility] ABO GROUP O 01/07/2024 5:05 AM CDT [facility] [employer] [facility] RH (D) TYPE Positive 01/07/2024 5:05 AM CDT [facility] Blood Collection / Unknown 01/07/2024 2:00 AM CDT 01/07/2024 4:13 AM CDT Brianda Leblanc MD BLOOD BANK ORDERABLES Edited Res ult - Final [facility] [employer] [facility] CLIA# [id number] [place] [address] * (ABNORMAL) CBC WITH DIFFERENTIAL (01/07/2024 2:00 AM CDT) Pathologist [facility] WBC 9.4 4.5 - 10.5 K/uL 01/07/2024 5:20 AM CDT [facility] [employer] [facility] RBC 2.27(L) 3.90 - 4.90 M/uL 01/07/2024 5:20 AM CDT [facility] [employer] [facility] HEMOGLOBIN 6.5(LL) 11.8 - 14.8 g/dL 01/07/2024 5:20 AM CDT [facility] HEMATOCRIT 20.0(L) 35.5 - 44.0 % 01/07/2024 5:20 AM CDT [facility] MCV 88.0 82.0 - 99.0 fL 01/07/2024 5:20 AM CDT [facility] LABORATORY SERVICES [facility] MCH 28.6 27.8 - 34.5 pg 01/07/2024 5:20 AM CDT [facility] LABORATORY SERVICES [facility] MCHC 32.5 32.5 - 35.5 g/dL 01/07/2024 5:20 AM CDT [facility] LABORATORY SERVICES [facility] RDW 15.7(H) 11.5 - 14.5 % 01/07/2024 5:20 AM CDT [facility] LABORATORY SERVICES [facility] PLATELETS 238 160 - 420 K/uL 01/07/2024 5:20 AM CDT [facility] LABORATORY SERVICES [facility] MPV 10.5 8.7 - 12.7 fL 01/07/2024 5:20 AM CDT [facility] LABORATORY SERVICES [facility] NEUTROPHILS 74 % 01/07/2024 5:20 AM CDT [facility] LABORATORY SERVICES [facility] LYMPHOCYTES 12 % 01/07/2024 5:20 AM CDT [facility] LABORATORY SERVICES [facility] MONOCYTES 7 % 01/07/2024 5:20 AM CDT [facility] LABORATORY SERVICES [facility] EOSINOPHILS 6 % 01/07/2024 5:20 AM CDT [facility] LABORATORY SERVICES [facility] BASOPHILS 1 % 01/07/2024 5:20 AM CDT [facility] LABORATORY SERVICES [facility] NEUTROPHIL ABSOLUTE 6.90 1.90 - 7.00 K/uL 01/07/2024 5:20 AM CDT [facility] LABORATORY SERVICES [facility] LYMPHOCYTE ABSOLUTE 1.10 0.70 - 4.50 K/uL 01/07/2024 5:20 AM CDT [facility] LABORATORY SERVICES [facility] MONOCYTE ABSOLUTE 0.70 0.10 - 1.30 K/uL 01/07/2024 5:20 AM CDT [facility] LABORATORY SERVICES [facility] EOSINOPHIL ABSOLUTE 0.60 0.00 - 0.70 K/uL 01/07/2024 5:20 AM CDT [facility] LABORATORY SERVICES [facility] BASOPHILS ABSOLUTE 0.10 0.00 - 0.20 K/uL 01/07/2024 5:20 AM CDT [facility] LABORATORY SERVICES [facility] Blood Collection / Unknown 01/07/2024 2:00 AM CDT 01/07/2024 4:13 AM CDT us Brianda Leblanc MD HEMATOLOGY ORDERABLES Final Resu lt [facility] LABORATORY SERVICES [facility]# [id number] [place] [address] documented in this encounter Visit Diagnoses Not on filedocumented in this encounter
--- OUTSIDE RECORDS SUMMARY | 2025-01-17 16:05 | XMS_ITS | Encounter Summary ---
Author Organization [facility] Address [address] [place] [address] Care Team Providers Care Waste Disposal Plant Operator Name Role Phone Unavailable Primary Care Provider Unavailabl e Encounter Details Date Type Department Care Team (Late st Contact Info) Description 01/29/2024 Lab Requisition [facility] Laboratory Services [address] [place] [address] [place] [address] [place] [address] Social History Tobacco Use Types [...] WITH DIFFERENTIAL (01/29/2024 3:25 AM CDT) Pathologist [facility] WBC 9.7 4.5 - 10.5 K/uL 01/29/2024 7:35 AM CDT [facility]ORATORY SERVICES [facility] RBC 2.96(L) 3.90 - 4.90 M/uL 01/29/2024 7:35 AM CDT [facility] HEMOGLOBIN 8.4(L) 11.8 - 14.8 g/dL 01/29/2024 7:35 AM CDT [facility] HEMATOCRIT 25.5(L) 35.5 - 44.0 % 01/29/2024 7:35 AM CDT [facility] SERVICES [facility] MCV 86.4 82.0 - 99.0 fL 01/29/2024 7:35 AM CDT [facility] SERVICES [facility] MCH 28.6 27.8 - 34.5 pg 01/29/2024 7:35 AM CDT [facility] SERVICES [facility] MCHC 33.1 32.5 - 35.5 g/dL 01/29/2024 7:35 AM CDT [facility] SERVICES [facility] RDW 16.5(H) 11.5 - 14.5 % 01/29/2024 7:35 AM CDT [facility] SERVICES [facility] PLATELETS 429(H) 160 - 420 K/uL 01/29/2024 7:35 AM CDT [facility] SERVICES [facility] MPV 9.1 8.7 - 12.7 fL 01/29/2024 7:35 AM CDT [facility] SERVICES [facility] NEUTROPHILS 59 % 01/29/2024 7:35 AM CDT [facility] SERVICES [facility] LYMPHOCYTES 26 % 01/29/2024 7:35 AM CDT [facility] SERVICES [facility] MONOCYTES 9 % 01/29/2024 7:35 AM CDT [facility] SERVICES [facility] EOSINOPHILS 6 % 01/29/2024 7:35 AM CDT [facility] SERVICES [facility] BASOPHILS 1 % 01/29/2024 7:35 AM CDT [facility] SERVICES [facility] NEUTROPHIL ABSOLUTE 5.70 1.90 - 7.00 K/uL 01/29/2024 7:35 AM CDT [facility] SERVICES [facility] LYMPHOCYTE ABSOLUTE 2.50 0.70 - 4.50 K/uL 01/29/2024 7:35 AM CDT [facility] SERVICES [facility] MONOCYTE ABSOLUTE 0.80 0.10 - 1.30 K/uL 01/29/2024 7:35 AM CDT [facility] SERVICES [facility] EOSINOPHIL ABSOLUTE 0.60 0.00 - 0.70 K/uL 01/29/2024 7:35 AM CDT [facility] SERVICES [facility] BASOPHILS ABSOLUTE 0.10 0.00 - 0.20 K/uL 01/29/2024 7:35 AM CDT [facility] Blood Collection / Unknown 01/29/2024 3:25 AM CDT 01/29/2024 6:48 AM CDT Brianda Leblanc MD HEMATOLOGY ORDERABLES Final Resu lt [facility] CLIA# [id number] [address] [place] [address] * (ABNORMAL) BASIC METABOLIC PANEL (01/29/2024 3:25 AM CDT) SODIUM 134(L) 136 - 145 mmol/L 01/29/2024 7:50 AM CDT [facility] POTASSIUM 3.9 3.4 - 5.1 mmol/L 01/29/2024 7:50 AM T [facility] CHLORIDE 95(L) 98 - 107 mmol/L 01/29/2024 7:50 AM CDT [facility] CO2 25 22 - 29 mmol/L 01/29/2024 7:50 AM CDT [facility] CALCIUM 10.3 8.6 - 10.4 mg/dL 01/29/2024 7:50 AM CDT [facility] BUN 14 6 - 20 mg/dL 01/29/2024 7:50 AM T [facility] CREATININE 0.68 0.51 - 0.95 mg/dL 01/29/2024 7:50 AM CDT [facility] GLUCOSE 87 74 - 99 mg/dL 01/29/2024 7:50 AM T [facility] GFR >60 >=60 mL/min/1.7 3 sq meter 01/29/2024 7:50 AM T [facility] Comment:eGFR calculated with 2020 CKD-EPI equation. Vegetarian diet, extremely high or low muscle mass, and may affect results. Cystatin C with Glomerular Filtration Rate is a suitable alternative for these patients. ANION GAP 14 8 - 16 mmol/L 01/29/2024 7:50 AM CDT [facility]ORY SERVICES [facility] Blood Collection / Unknown 01/29/2024 3:25 AM CDT 01/29/2024 6:48 AM CDT us Brianda Leblanc MD CHEMISTRY ORDERABLES Final Resul t [facility]OR[facility]ORY SERVICES [facility] CLIA# [id number] [place] [address] documented in this encounter Visit Diagnoses Not on filedocumented in this encounter
--- OUTSIDE RECORDS SUMMARY | 2025-01-17 16:05 | XMS_ITS | Clinical Summary ---
Author Organization [facility] Address [address] [place] [address] Phone Care Team Providers Care Roof Promenade Tile Setter Name Role Phone Unavailable Primary Care Provider [...]
--- OUTSIDE RECORDS SUMMARY | 2025-01-17 16:05 | XMS_ITS | Encounter Summary ---
Author Organization [facility] Address [address] [place] [address] Care Team Providers Care Industrial Maintenance Mechanic Name Role Phone Unavailable Primary Care Provider Unavailabl e Encounter Details Date Type Department Care Team (Late st Contact Info) Description 01/17/2024 Lab Requisition [facility] Laboratory Services [address] [place] [address] [place] [address] [place] [address] Social History Tobacco Use Types [...] CBC WITH DIFFERENTIAL (01/17/2024 3:45 AM CDT) [facility] WBC 9.8 4.5 - 10.5 K/uL 01/17/2024 8:43 AM CDT [facility] LABORATORY SERVICES - [facility] RBC 3.10(L) 3.90 - 4.90 M/uL 01/17/2024 8:43 AM CDT [facility] HEMOGLOBIN 8.7(L) 11.8 - 14.8 g/dL 01/17/2024 8:43 AM CDT [facility] HEMATOCRIT 27.3(L) 35.5 - 44.0 % 01/17/2024 8:43 AM CDT [facility] LABORATORY SERVICES [facility] MCV 87.9 82.0 - 99.0 fL 01/17/2024 8:43 AM CDT [facility]ORATORY SERVICES [facility] MCH 28.2 27.8 - 34.5 pg 01/17/2024 8:43 AM CDT [facility] LABORATORY SERVICES [facility] MCHC 32.1(L) 32.5 - 35.5 g/dL 01/17/2024 8:43 AM CDT [facility]ORATORY SERVICES [facility] RDW 16.7(H) 11.5 - 14.5 % 01/17/2024 8:43 AM CDT [facility] LABORATORY SERVICES [facility] PLATELETS 394 160 - 420 K/uL 01/17/2024 8:43 AM CDT [facility] LABORATORY SERVICES [facility] MPV 9.7 8.7 - 12.7 fL 01/17/2024 8:43 AM CDT [facility] LABORATORY SERVICES [facility] NEUTROPHILS 64 % 01/17/2024 8:43 AM CDT [facility] LABORATORY SERVICES [facility] LYMPHOCYTES 22 % 01/17/2024 8:43 AM CDT [facility]ORATORY SERVICES [facility] MONOCYTES 7 % 01/17/2024 8:43 AM CDT [facility]ORATORY SERVICES [facility] EOSINOPHILS 6 % 01/17/2024 8:43 AM CDT [facility]ORATORY SERVICES [facility] BASOPHILS 1 % 01/17/2024 8:43 AM CDT [facility] LABORATORY SERVICES [facility] NEUTROPHIL ABSOLUTE 6.30 1.90 - 7.00 K/uL 01/17/2024 8:43 AM CDT [facility] LABORATORY SERVICES [facility] LYMPHOCYTE ABSOLUTE 2.10 0.70 - 4.50 K/uL 01/17/2024 8:43 AM CDT [facility]ORATORY SERVICES [facility] MONOCYTE ABSOLUTE 0.70 0.10 - 1.30 K/uL 01/17/2024 8:43 AM CDT [facility] LABORATORY SERVICES [facility] EOSINOPHIL ABSOLUTE 0.60 0.00 - 0.70 K/uL 01/17/2024 8:43 AM CDT [facility] LABORATORY SERVICES [facility] BASOPHILS ABSOLUTE 0.10 0.00 - 0.20 K/uL 01/17/2024 8:43 AM CDT [facility] LABORATORY [facility] Blood Collection / Unknown 01/17/2024 3:45 AM CDT 01/17/2024 8:21 AM CDT Brianda Leblanc MD HEMATOLOGY ORDERABLES Final Resu lt [facility] CLIA# [id number] [place] [address] * BASIC METABOLIC PANEL (01/17/2024 3:45 AM CDT) SODIUM 137 136 - 145 mmol/L 01/17/2024 9:07 AM T [facility] POTASSIUM 4.3 3.4 - 5.1 mmol/L 01/17/2024 9:07 AM T [facility] CHLORIDE 99 98 - 107 mmol/L 01/17/2024 9:07 AM T [facility] LABORATORY [facility] CO2 27 22 - 29 mmol/L 01/17/2024 9:07 AM T [facility] CALCIUM 10.4 8.6 - 10.4 mg/dL 01/17/2024 9:07 AM [facility] BUN 20 6 - 20 mg/dL 01/17/2024 9:07 AM [facility] CREATININE 0.62 0.51 - 0.95 mg/dL 01/17/2024 9:07 AM T [facility] GLUCOSE 86 74 - 99 mg/dL 01/17/2024 9:07 AM T [facility] GFR >60 >=60 mL/min/1.7 3 sq meter 01/17/2024 9:07 AM [facility] [employer] [facility] Comment:eGFR calculated with 2020 CKD-EPI equation. Vegetarian diet, extremely high or low muscle mass, and may affect results. Cystatin C with Glomerular Filtration Rate is a suitable alternative for these patients. ANION GAP 11 8 - 16 mmol/L 01/17/2024 9:07 AM CDT [facility] LABORATORY SERVICES [facility] Blood Collection / Unknown 01/17/2024 3:45 AM CDT 01/17/2024 8:21 AM CDT Brianda Leblanc MD CHEMISTRY ORDERABLES Final Resul t [facility]ORATORY SERVICES [facility] CLIA# [id number] [place] [address] documented in this encounter Visit Diagnoses Not on filedocumented in this encounter
--- OUTSIDE RECORDS SUMMARY | 2025-01-17 16:05 | XMS_ITS | Encounter Summary ---
Author Organization [facility] Address [address] [place] [address] Care Team Providers Care Spinner Open End Name Role Phone Unavailable Primary Care Provider Unavailabl e Encounter Details Date Type Department Care Team (Late st Contact Info) Description 01/06/2024 Lab Requisition [facility] Laboratory Services [address] [place] [address] [place] [address] [place] [address] Social History Tobacco Use Types [...] - 10.5 K/uL 01/06/2024 4:57 AM CDT [facility] LABORATORY SERVICES - [facility] RBC 2.49(L) 3.90 - 4.90 M/uL 01/06/2024 4:57 AM CDT [facility] LABORATORY [facility] - [facility] HEMOGLOBIN 7.0(L) 11.8 - 14.8 g/dL 01/06/2024 4:57 AM CDT [facility] LABORATORY [facility] - [facility] HEMATOCRIT 21.5(L) 35.5 - 44.0 % 01/06/2024 4:57 AM CDT [facility] LABORATORY [facility] MCV 86.1 82.0 - 99.0 fL 01/06/2024 4:57 AM CDT [facility] LABORATORY SERVICES [facility] MCH 28.1 27.8 - 34.5 pg 01/06/2024 4:57 AM CDT [facility] LABORATORY SERVICES - [facility] MCHC 32.7 32.5 - 35.5 g/dL 01/06/2024 4:57 AM CDT [facility] LABORATORY SERVICES [facility] RDW 15.4(H) 11.5 - 14.5 % 01/06/2024 4:57 AM CDT [facility] LABORATORY SERVICES [facility] PLATELETS 278 160 - 420 K/uL 01/06/2024 4:57 AM CDT [facility] LABORATORY SERVICES [facility] MPV 9.9 8.7 - 12.7 fL 01/06/2024 4:57 AM CDT [facility] LABORATORY SERVICES [facility] NEUTROPHILS 77 % 01/06/2024 4:57 AM CDT [facility] LABORATORY SERVICES [facility] LYMPHOCYTES 11 % 01/06/2024 4:57 AM CDT [facility] LABORATORY SERVICES [facility] MONOCYTES 7 % 01/06/2024 4:57 AM CDT [facility] LABORATORY SERVICES [facility] EOSINOPHILS 4 % 01/06/2024 4:57 AM CDT [facility] LABORATORY SERVICES [facility] BASOPHILS 1 % 01/06/2024 4:57 AM CDT [facility] LABORATORY SERVICES [facility] NEUTROPHIL ABSOLUTE 7.20(H) 1.90 - 7.00 K/uL 01/06/2024 4:57 AM CDT [facility] LABORATORY SERVICES [facility] LYMPHOCYTE ABSOLUTE 1.00 0.70 - 4.50 K/uL 01/06/2024 4:57 AM CDT [facility] LABORATORY SERVICES [facility] MONOCYTE ABSOLUTE 0.70 0.10 - 1.30 K/uL 01/06/2024 4:57 AM CDT [facility] LABORATORY SERVICES [facility] EOSINOPHIL ABSOLUTE 0.40 0.00 - 0.70 K/uL 01/06/2024 4:57 AM CDT [facility] LABORATORY SERVICES [facility] BASOPHILS ABSOLUTE 0.10 0.00 - 0.20 K/uL 01/06/2024 4:57 AM CDT [facility] LABORATORY SERVICES [facility] Blood Collection / Unknown 01/06/2024 2:15 AM CDT 01/06/2024 4:38 AM CDT us Brianda Leblanc MD HEMATOLOGY ORDERABLES Final Resu lt Performing Organization Address City/State/[facility] Co de Phone Number [facility] LABORATORY SERVICES [facility]# [id number] [place] [address] documented in this encounter Visit Diagnoses Not on filedocumented in this encounter
--- OUTSIDE RECORDS SUMMARY | 2025-01-17 16:05 | XMS_ITS | Encounter Summary ---
Author Organization [facility] Address [address] [place] [address] Care Team Providers Care Criminal Justice Faculty Name Role Phone Unavailable Primary Care Provider Unavailabl e Encounter Details Date Type Department Care Team (Late st Contact Info) Description 01/16/2024 Lab Requisition [facility] Laboratory Services [address] [place] [address] [place] [address] [place] [address] Social History Tobacco Use Types [...] - 145 mmol/L 01/16/2024 1:[address] [facility] LABORATORY SERVICES [facility] POTASSIUM 4.3 3.4 - 5.1 mmol/L 01/16/2024 1:[address] [facility] LABORATORY SERVICES [facility] Comment:Slightly hemolyzed. Result may be falsely elevated. CHLORIDE 96(L) 98 - 107 mmol/L 01/16/2024 1:[address] [facility] LABORATORY [facility] CO2 24 22 - 29 mmol/L 01/16/2024 1:[address] [facility] LABORATORY [facility] CALCIUM 10.1 8.6 - 10.4 mg/dL 01/16/2024 1:53 AM CDT [facility] BUN 21(H) 6 - 20 mg/dL 01/16/2024 1:53 AM CDT [facility] CREATININE 0.67 0.51 - 0.95 mg/dL 01/16/2024 1:53 AM CDT [facility] GLUCOSE 104(H) 74 - 99 mg/dL 01/16/2024 1:53 AM CDT [facility] GFR >60 >=60 mL/min/1.7 3 sq meter 01/16/2024 1:53 AM T [facility] Comment:eGFR calculated with 2020 CKD-EPI equation. Vegetarian diet, extremely high or low muscle mass, and may affect results. Cystatin C with Glomerular Filtration Rate is a suitable alternative for these patients. ANION GAP 14 8 - 16 mmol/L 01/16/2024 1:53 AM CDT [facility] Blood 01/16/2024 12:3 0 AM CDT 01/16/2024 1:10 AM CDT Brianda Leblanc MD CHEMISTRY ORDERABLES Final Resul t [facility] CLIA# [id number] [place] [address] documented in this encounter Visit Diagnoses Not on filedocumented in this encounter
--- OUTSIDE RECORDS SUMMARY | 2025-01-17 16:05 | XMS_ITS | Encounter Summary ---
Author Organization [facility] Address [address] [place] [address] Care Team Providers Care Gas Golf Cart Repairer Name Role Phone Unavailable Primary Care Provider Unavailabl e Encounter Details Date Type Department Care Team (Late st Contact Info) Description 01/23/2024 Lab Requisition [facility] Laboratory Services [address] [place] [address] [place] [address] [place] [address] Social History Tobacco Use Types [...] WITH DIFFERENTIAL (01/23/2024 3:00 AM CDT) Pathologist [facility] WBC 7.9 4.5 - 10.5 K/uL 01/23/2024 7:24 AM CDT [facility] LABORATORY [facility] RBC 3.00(L) 3.90 - 4.90 M/uL 01/23/2024 7:24 AM CDT [facility] LABORATORY [facility] HEMOGLOBIN 8.6(L) 11.8 - 14.8 g/dL 01/23/2024 7:24 AM CDT [facility] LABORATORY [facility] HEMATOCRIT 26.3(L) 35.5 - 44.0 % 01/23/2024 7:24 AM CDT [facility] LABORATORY SERVICES [facility] MCV 87.6 82.0 - 99.0 fL 01/23/2024 7:24 AM CDT [facility] LABORATORY SERVICES [facility] MCH 28.5 27.8 - 34.5 pg 01/23/2024 7:24 AM CDT [facility] LABORATORY SERVICES [facility] MCHC 32.6 32.5 - 35.5 g/dL 01/23/2024 7:24 AM CDT [facility] LABORATORY SERVICES [facility] RDW 16.3(H) 11.5 - 14.5 % 01/23/2024 7:24 AM CDT [facility] LABORATORY SERVICES [facility] PLATELETS 383 160 - 420 K/uL 01/23/2024 7:24 AM CDT [facility] LABORATORY SERVICES [facility] MPV 9.0 8.7 - 12.7 fL 01/23/2024 7:24 AM CDT [facility] LABORATORY SERVICES [facility] NEUTROPHILS 50 % 01/23/2024 7:24 AM CDT [facility] LABORATORY SERVICES [facility] LYMPHOCYTES 29 % 01/23/2024 7:24 AM CDT [facility] LABORATORY SERVICES [facility] MONOCYTES 11 % 01/23/2024 7:24 AM CDT [facility] LABORATORY SERVICES [facility] EOSINOPHILS 8 % 01/23/2024 7:24 AM CDT [facility] LABORATORY SERVICES [facility] BASOPHILS 1 % 01/23/2024 7:24 AM CDT [facility] LABORATORY SERVICES [facility] NEUTROPHIL ABSOLUTE 3.90 1.90 - 7.00 K/uL 01/23/2024 7:24 AM CDT [facility] LABORATORY SERVICES [facility] LYMPHOCYTE ABSOLUTE 2.30 0.70 - 4.50 K/uL 01/23/2024 7:24 AM CDT [facility] LABORATORY SERVICES [facility] MONOCYTE ABSOLUTE 0.90 0.10 - 1.30 K/uL 01/23/2024 7:24 AM CDT [facility] LABORATORY SERVICES [facility] EOSINOPHIL ABSOLUTE 0.70 0.00 - 0.70 K/uL 01/23/2024 7:24 AM CDT [facility] LABORATORY SERVICES [facility] BASOPHILS ABSOLUTE 0.10 0.00 - 0.20 K/uL 01/23/2024 7:24 AM CDT [facility] Blood Collection / Unknown 01/23/2024 3:00 AM CDT 01/23/2024 7:10 AM CDT Brianda Leblanc MD HEMATOLOGY ORDERABLES Final Resu lt [facility] CLIA# [id number] [place] [address] * (ABNORMAL) BASIC METABOLIC PANEL (01/23/2024 3:00 AM CDT) SODIUM 136 136 - 145 mmol/L 01/23/2024 7:48 AM T [facility] POTASSIUM 4.0 3.4 - 5.1 mmol/L 01/23/2024 7:48 AM [facility] CHLORIDE 97(L) 98 - 107 mmol/L 01/23/2024 7:48 AM T [facility] CO2 26 22 - 29 mmol/L 01/23/2024 7:48 AM [facility] CALCIUM 10.2 8.6 - 10.4 mg/dL 01/23/2024 7:48 AM [facility] BUN 16 6 - 20 mg/dL 01/23/2024 7:48 AM [facility] CREATININE 0.70 0.51 - 0.95 mg/dL 01/23/2024 7:48 AM T [facility] GLUCOSE 91 74 - 99 mg/dL 01/23/2024 7:48 AM [facility] GFR >60 >=60 mL/min/1.7 3 sq meter 01/23/2024 7:48 AM [facility] Comment:eGFR calculated with 2020 CKD-EPI equation. Vegetarian diet, extremely high or low muscle mass, and may affect results. Cystatin C with Glomerular Filtration Rate is a suitable alternative for these patients. ANION GAP 13 8 - 16 mmol/L 01/23/2024 7:48 AM CDT [facility] LABORATORY SERVICES [facility] Blood Collection / Unknown 01/23/2024 3:00 AM CDT 01/23/2024 7:10 AM CDT us Brianda Leblanc MD CHEMISTRY ORDERABLES Final Resul t [facility] LABORATORY SERVICES [facility] CLIA# [id number] [place] [address] documented in this encounter Visit Diagnoses Not on filedocumented in this encounter
== END 2025-01-17 13:56 | disposition home or self-care (01) ==
PROVIDERS: PCP Family Medicine; Visit Provider Orthopaedic Surgery
DX: T84.84XA Pain due to internal orthopedic prosthetic devices, implants and grafts, initial encounter (principal); Z96.611 Presence of right artificial shoulder joint; S40.011A Contusion of right shoulder, initial encounter; X58.XXXA Exposure to other specified factors, initial encounter
CPT/HCPCS: 36415; 85025; 85652; 86140; 89051

== ENCOUNTER 2025-02-22 10:52 | Outpatient (NON) | payer OTHER, SELFPAY ==
[2025-02-22 14:31] LABS: Color Synovial Fluid Other (Colorless); Nucleated Cell Synovial Fluid 69200 /uL (0-200); Source Synovial Fluid Rt Shoulder Syn Flui
[2025-02-22 14:32] LABS: RBC Synovial Fluid 79000 /uL (0-0)
[2025-02-22 14:37] LABS: Lymphocytes Synovial Fluid 25 %; Monocytes Synovial Fluid 11 %; Neutrophils Synovial Fluid 63 % (0-25)
--- OUTSIDE RECORDS SUMMARY | 2025-02-22 15:12 | XMS_ITS | Encounter Summary ---
Author Organization [facility] Address [address] [place] [address] Care Team Providers Care Maker Up Folding Name Role Phone Unavailable Primary Care Provider Unavailabl e Encounter Details Date Type Department Care Team (Late st Contact Info) Description 01/04/2024 Lab Requisition [facility] Laboratory Services [address] [place] [address] [place] [address] [place] [address] Social History Tobacco Use Types [...] t [facility] LABORATORY SERVICES [facility]# [id number] [place] [address] * (ABNORMAL) HEMOGLOBIN AND HEMATOCRIT (01/04/2024 2:12 AM CDT) HEMOGLOBIN 8.0(L) 11.8 - 14.8 g/dL 01/04/2024 8:52 AM CDT [facility] LABORATORY [facility] Comment:No clot , pt receive d blood HEMATOCRIT 24.7(L) 35.5 - 44.0 % 01/04/2024 8:52 AM CDT [facility] Blood Collection / Unknown 01/04/2024 2:12 AM CDT 01/04/2024 8:33 AM CDT us Brianda Leblanc MD HEMATOLOGY ORDERABLES Final Resu lt [facility] [employer] [facility] CLIA# [id number] [place] [address] documented in this encounter Visit Diagnoses Not on filedocumented in this encounter
--- OUTSIDE RECORDS SUMMARY | 2025-02-22 15:12 | XMS_ITS | Encounter Summary ---
Author Organization [facility] Address [address] [place] [address] Care Team Providers Care Cash Manager Name Role Phone Unavailable Primary Care Provider Unavailabl e Encounter Details Date Type Department Care Team (Late st Contact Info) Description 12/30/2023 Lab Requisition [facility] Laboratory Services [address] [place] [address] [place] [address] [place] [address] Social History Tobacco Use Types [...] - 17.0 ug/mL 12/30/2023 6:01 PM CDT [facility] Blood Collection / Unknown 12/30/2023 2:43 PM CDT 12/30/2023 5:30 PM CDT us Brianda Leblanc MD CHEMISTRY ORDERABLES Final Resul t [facility] [employer] [facility] CLIA# [id number] [place] [address] documented in this encounter Visit Diagnoses Not on filedocumented in this encounter
--- OUTSIDE RECORDS SUMMARY | 2025-02-22 15:12 | XMS_ITS | Encounter Summary ---
Author Organization [facility] Address [address] [place] [address] Care Team Providers Care Southeast Regional Sales Manager Name Role Phone Unavailable Primary Care Provider Unavailabl e Encounter Details Date Type Department Care Team (Late st Contact Info) Description 12/27/2023 Lab Requisition [facility] Laboratory Services [address] [place] [address] [place] [address] [place] [address] Social History Tobacco Use Types [...] - 37.1 seconds 12/27/2023 9:05 AM CDT [facility] LABORATORY SERVICES [facility] Blood Collection / Unknown 12/27/2023 5:50 AM CDT 12/27/2023 7:57 AM CDT Brianda Leblanc MD HEMATOLOGY ORDERABLES Final Resu lt [facility] CLIA# [id number] [place] [address] * PROTIME-INR (12/27/2023 5:50 AM CDT) PROTIME 14.7 11.5 - 14.7 Seconds 12/27/2023 9:05 AM CDT [facility] [employer] [facility] INR 1.1 0.9 - 1.1 12/27/2023 9:05 AM CDT [facility] [employer] [facility] Blood Collection / Unknown 12/27/2023 5:50 AM CDT 12/27/2023 7:57 AM CDT Brianda Leblanc MD HEMATOLOGY ORDERABLES Final Resu lt [facility] [employer] [facility] CLIA# [id number] [place] [address] * (ABNORMAL) CBC WITH DIFFERENTIAL (12/27/2023 5:50 AM CDT) WBC 9.2 4.5 - 10.5 K/uL 12/27/2023 8:50 AM CDT [facility] [employer] [facility] RBC 2.82(L) 3.90 - 4.90 M/uL 12/27/2023 8:50 AM CDT [facility] [employer] [facility] HEMOGLOBIN 7.9(L) 11.8 - 14.8 g/dL 12/27/2023 8:50 AM CDT [facility] [employer] [facility] HEMATOCRIT 24.4(L) 35.5 - 44.0 % 12/27/2023 8:50 AM CDT [facility] [employer] [facility] MCV 86.7 82.0 - 99.0 fL 12/27/2023 8:50 AM CDT [facility] [employer] [facility] MCH 27.9 27.8 - 34.5 pg 12/27/2023 8:50 AM CDT [facility] LABORATORY SERVICES [facility] MCHC 32.2(L) 32.5 - 35.5 g/dL 12/27/2023 8:50 AM CDT [facility] LABORATORY SERVICES [facility] RDW 15.6(H) 11.5 - 14.5 % 12/27/2023 8:50 AM CDT [facility] LABORATORY SERVICES [facility] PLATELETS 271 160 - 420 K/uL 12/27/2023 8:50 AM CDT [facility] LABORATORY SERVICES [facility] MPV 10.3 8.7 - 12.7 fL 12/27/2023 8:50 AM CDT [facility] LABORATORY SERVICES - [facility] NEUTROPHILS 75 % 12/27/2023 8:50 AM CDT [facility] LABORATORY SERVICES - [facility] LYMPHOCYTES 13 % 12/27/2023 8:50 AM CDT [facility] LABORATORY SERVICES [facility] MONOCYTES 7 % 12/27/2023 8:50 AM CDT [facility] LABORATORY SERVICES [facility] EOSINOPHILS 4 % 12/27/2023 8:50 AM CDT [facility] LABORATORY SERVICES [facility] BASOPHILS 1 % 12/27/2023 8:50 AM CDT [facility] LABORATORY SERVICES [facility] NEUTROPHIL ABSOLUTE 7.00 1.90 - 7.00 K/uL 12/27/2023 8:50 AM CDT [facility] LABORATORY SERVICES [facility] LYMPHOCYTE ABSOLUTE 1.20 0.70 - 4.50 K/uL 12/27/2023 8:50 AM CDT [facility] LABORATORY SERVICES [facility] MONOCYTE ABSOLUTE 0.60 0.10 - 1.30 K/uL 12/27/2023 8:50 AM CDT [facility] LABORATORY SERVICES [facility] EOSINOPHIL ABSOLUTE 0.40 0.00 - 0.70 K/uL 12/27/2023 8:50 AM CDT [facility] LABORATORY SERVICES [facility] BASOPHILS ABSOLUTE 0.10 0.00 - 0.20 K/uL 12/27/2023 8:50 AM CDT [facility] LABORATORY SERVICES [facility] Blood Collection / Unknown 12/27/2023 5:50 AM CDT 12/27/2023 7:57 AM CDT us Brianda Leblanc MD HEMATOLOGY ORDERABLES Final Resu lt [facility] CLIA# [id number] [place] [address] * (ABNORMAL) COMPREHENSIVE METABOLIC PANEL (12/27/2023 5:50 AM CDT) SODIUM 142 136 - 145 mmol/L 12/27/2023 9:10 AM CDT [facility] POTASSIUM 3.1(L) 3.4 - 5.1 mmol/L 12/27/2023 9:10 AM T [facility] CHLORIDE 105 98 - 107 mmol/L 12/27/2023 9:10 AM T [facility] CO2 24 22 - 29 mmol/L 12/27/2023 9:10 AM T [facility] CALCIUM 8.4(L) 8.6 - 10.4 mg/dL 12/27/2023 9:10 AM T [facility] BUN 23(H) 6 - 20 mg/dL 12/27/2023 9:10 AM T [facility] CREATININE 0.68 0.51 - 0.95 mg/dL 12/27/2023 9:10 AM [facility] GLUCOSE 109(H) 74 - 99 mg/dL 12/27/2023 9:10 AM T [facility] TOTAL PROTEIN 6.0(L) 6.3 - 8.7 g/dL 12/27/2023 9:10 AM T [facility] ALBUMIN 2.3(L) 3.5 - 5.2 g/dL 12/27/2023 9:10 AM T [facility] BILIRUBIN TOTAL <0.2(L) 0.2 - 1.1 mg/dL 12/27/2023 9:10 AM T [facility] ALKALINE PHOSPHATASE 87 40 - 150 U/L 12/27/2023 9:10 AM T [facility] AST 21 0 - 33 U/L 12/27/2023 9:10 AM [facility] ALT 22 0 - 33 U/L 12/27/2023 9:10 AM [facility] GFR >60 >=60 mL/min/1.7 3 sq meter 12/27/2023 9:10 AM [facility] Comment:eGFR calculated with 2020 CKD-EPI equation. Vegetarian diet, extremely high or low muscle mass, and may affect results. Cystatin C with Glomerular Filtration Rate is a suitable alternative for these patients. ANION GAP 13 8 - 16 mmol/L 12/27/2023 9:10 AM [facility] Blood Collection / Unknown 12/27/2023 5:50 AM CDT 12/27/2023 7:57 AM CDT us Brianda Leblanc MD CHEMISTRY ORDERABLES Final Resul t [facility] CLIA# [id number] [place] [address] documented in this encounter Visit Diagnoses Not on filedocumented in this encounter
--- OUTSIDE RECORDS SUMMARY | 2025-02-22 15:12 | XMS_ITS | Encounter Summary ---
Author Organization [facility] Address [address] [place] [address] Care Team Providers Care Security Assurance Specialist Name Role Phone Unavailable Primary Care Provider Unavailabl e Encounter Details Date Type Department Care Team (Late st Contact Info) Description 01/05/2024 Lab Requisition [facility] Laboratory Services [address] [place] [address] [place] [address] [place] [address] Social History Tobacco Use Types [...] PATHOGEN PCR PANEL (01/05/2024 3:00 PM CDT) [facility] Enterobacter cloacae complex by PCR DETECTED( A) Not Detected 01/06/2024 10:25 AM CDT [facility] Blood 01/05/2024 3:00 PM CDT 01/05/2024 4:17 PM CDT [facility] - 01/06/2024 10:25 AM CDT The [...] The following organisms are identified using the [employer] BCID Panel: Gram Positive Bacteria Enterococcus faecalis [...] MICROBIOLOGY - GENERAL ORDERABLE S Final Result [facility]# [id number] 5 SYari [facility] [place] [address] * (ABNORMAL) BLOOD CULTURE (01/05/2024 3:00 PM CDT) [facility] BLOOD CULTURE Abnormal Gram Stain(A) 01/08/2024 9:49 AM CDT [facility] BLOOD CULTURE ENTEROBACTER CLOACAE COMPLEX(A) COSTA MCG/ML 01/08/2024 9:49 AM CDT [facility] Blood 01/05/2024 3:00 PM CDT 01/05/2024 4:17 PM CDT Narrative [facility] - 01/08/2024 9:49 AM CDT Gram stain and preliminary PCR results called to Raysa Phan RN, [facility], on 01/06/2024 at 10:25 AM and read [...] MICROBIOLOGY - GENERAL ORDERABLE S Final Result [facility] CLIA# [id number] [address] [place] [address] * (ABNORMAL) BLOOD CULTURE (01/05/2024 2:45 PM CDT) BLOOD CULTURE Abnormal Gram Stain(A) 01/08/2024 9:52 AM CDT [facility] BLOOD CULTURE ENTEROBACTER CLOACAE COMPLEX(A) COSTA MCG/ML 01/08/2024 9:52 AM CDT [facility] Comment:Susceptibility on pr evious culture. Blood 01/05/2024 2:45 PM CDT 01/05/2024 4:17 PM CDT Narrative [facility] - 01/08/2024 9:52 AM CDT Results called to Raysa Phan RN, [facility], on 01/06/2024 at 10:27 AM and read [...] MICROBIOLOGY - GENERAL ORDERABLE S Final Result [facility]# [id number] [address] [place] [address] documented in this encounter Visit Diagnoses Not on filedocumented in this encounter
--- OUTSIDE RECORDS SUMMARY | 2025-02-22 15:12 | XMS_ITS | Encounter Summary ---
Author Organization [facility] Address [address] [place] [address] Care Team Providers Care Winter Sports Manager Name Role Phone Unavailable Primary Care Provider Unavailabl e Encounter Details Date Type Department Care Team (Late st Contact Info) Description 01/04/2024 Lab Requisition [facility] [id number] [place] [address] [place] [address] [place] [address] Social History Tobacco Use Types [...] - 17.0 ug/mL 01/04/2024 11:42 PM CDT [facility] Blood Collection / Unknown 01/04/2024 8:15 PM CDT 01/04/2024 11:07 PM CDT us Brianda Leblanc MD CHEMISTRY ORDERABLES Final Resul t [facility] CLIA# [id number] [place] [address] documented in this encounter Visit Diagnoses Not on filedocumented in this encounter
--- OUTSIDE RECORDS SUMMARY | 2025-02-22 15:12 | XMS_ITS | Encounter Summary ---
Author Organization [facility] Address [address] [place] [address] Care Team Providers Care Brand Ambassador Promotional Model Name Role Phone Unavailable Primary Care Provider Unavailabl e Encounter Details Date Type Department Care Team (Late st Contact Info) Description 12/31/2023 Lab Requisition [facility] Laboratory Services [address] [place] [address] [place] [address] [place] [address] Social History Tobacco Use Types [...] - 145 mmol/L 12/31/2023 12:38 PM CDT [facility] - [facility] POTASSIUM 3.8 3.4 - 5.1 mmol/L 12/31/2023 12:38 PM CDT [facility] - [facility] CHLORIDE 98 98 - 107 mmol/L 12/31/2023 12:38 PM CDT [facility] - [facility] CO2 26 22 - 29 mmol/L 12/31/2023 12:38 PM CDT [facility] CALCIUM 8.8 8.6 - 10.4 mg/dL 12/31/2023 12:38 PM CDT [facility] BUN 17 6 - 20 mg/dL 12/31/2023 12:38 PM T [facility] CREATININE 0.64 0.51 - 0.95 mg/dL 12/31/2023 12:38 PM T [facility] GLUCOSE 138(H) 74 - 99 mg/dL 12/31/2023 12:38 PM T [facility] GFR >60 >=60 mL/min/1.7 3 sq meter 12/31/2023 12:38 PM T [facility] Comment:eGFR calculated with 2020 CKD-EPI equation. Vegetarian diet, extremely high or low muscle mass, and may affect results. Cystatin C with Glomerular Filtration Rate is a suitable alternative for these patients. ANION GAP 12 8 - 16 mmol/L 12/31/2023 12:38 PM T [facility] Blood Collection / Unknown 12/31/2023 5:30 AM CDT 12/31/2023 12:00 PM CDT us Brianda Leblanc MD CHEMISTRY ORDERABLES [facility]ul t [facility] [id number] [place] [address] * (ABNORMAL) CBC WITH DIFFERENTIAL (12/31/2023 5:30 AM CDT) WBC 9.9 4.5 - 10.5 K/uL 12/31/2023 12:11 PM CDT [facility] RBC 2.65(L) 3.90 - 4.90 M/uL 12/31/2023 12:11 PM CDT [facility] HEMOGLOBIN 7.4(L) 11.8 - 14.8 g/dL 12/31/2023 12:11 PM CDT [facility] HEMATOCRIT 22.4(L) 35.5 - 44.0 % 12/31/2023 12:11 PM CDT [facility] MCV 84.5 82.0 - 99.0 fL 12/31/2023 12:11 PM CDT [facility] - [facility] MCH 28.1 27.8 - 34.5 pg 12/31/2023 12:11 PM CDT [facility] MCHC 33.3 32.5 - 35.5 g/dL 12/31/2023 12:11 PM CDT [facility] RDW 15.3(H) 11.5 - 14.5 % 12/31/2023 12:11 PM CDT [facility] PLATELETS 275 160 - 420 K/uL 12/31/2023 12:11 PM CDT [facility] MPV 10.6 8.7 - 12.7 fL 12/31/2023 12:11 PM CDT [facility] NEUTROPHILS 75 % 12/31/2023 12:11 PM CDT [facility] LYMPHOCYTES 14 % 12/31/2023 12:11 PM CDT [facility] MONOCYTES 6 % 12/31/2023 12:11 PM CDT [facility] EOSINOPHILS 5 % 12/31/2023 12:11 PM CDT [facility] BASOPHILS 1 % 12/31/2023 12:11 PM CDT [facility] NEUTROPHIL ABSOLUTE 7.40(H) 1.90 - 7.00 K/uL 12/31/2023 12:11 PM CDT [facility] LYMPHOCYTE ABSOLUTE 1.40 0.70 - 4.50 K/uL 12/31/2023 12:11 PM CDT [facility] MONOCYTE ABSOLUTE 0.60 0.10 - 1.30 K/uL 12/31/2023 12:11 PM CDT [facility] EOSINOPHIL ABSOLUTE 0.40 0.00 - 0.70 K/uL 12/31/2023 12:11 PM CDT [facility] BASOPHILS ABSOLUTE 0.10 0.00 - 0.20 K/uL 12/31/2023 12:11 PM CDT [facility] Blood Collection / Unknown 12/31/2023 5:30 AM CDT 12/31/2023 12:00 PM CDT us Brianda Leblanc MD HEMATOLOGY ORDERABLES Final Resu lt [facility] CLIA# [id number] [address] [place] [address] documented in this encounter Visit Diagnoses Not on filedocumented in this encounter
--- OUTSIDE RECORDS SUMMARY | 2025-02-22 15:12 | XMS_ITS | Encounter Summary ---
Author Organization [facility] Address [address] [place] [address] Care Team Providers Care Research Management Associate Name Role Phone Unavailable Primary Care Provider Unavailabl e Encounter Details Date Type Department Care Team (Late st Contact Info) Description 01/03/2024 Lab Requisition [facility] Laboratory Services [address] [place] [address] [place] [address] [place] [address] Social History Tobacco Use Types [...] CELLS (01/03/2024 8:39 AM CDT) COMPONENT TYPE [id number] [facility] Project Frog [facility] COMPONENT IDENTIFICATION [id number] [facility] LABORATORY SERVICES - [facility] ABO O [facility] LABORATORY SERVICES - [facility] RH POS [facility] LABORATORY SERVICES - [facility] CROSSMATCH Compatible [facility] Project Frog [facility] COMPONENT STATUS Transfused ME [facility] LABORATORY SERVICES - [facility] COMPONENT EXPIRATION DATE/TIME [id number] [facility] LABORATORY SERVICES - [facility] COMPONENT CODING SYSTEM [address] [facility] LABORATORY [facility] VOLUME, BLOOD PRODUCT [address] [facility] 01/03/2024 8:39 AM CDT Brianda Leblanc MD LAB TRANSFUSION ORDERABLES Edite d Result - Final Performing Organization Address City/[facility]/ZIP Co de Phone Number [facility] CLIA# [id number] [place] [address] * TYPE AND SCREEN (01/03/2024 8:39 AM CDT) ABO GROUP O 01/03/2024 2:[address] [facility] RH (D) TYPE Positive 01/03/2024 2:[address] [facility] ANTIBODY SCREEN Negative 01/03/2024 2:[address] [facility] Blood Collection / Unknown 01/03/2024 8:39 AM CDT 01/03/2024 1:29 PM CDT Brianda Leblanc MD BLOOD BANK ORDERABLES Edited Res ult - Final [facility] CLIA# [id number] [place] [address] documented in this encounter Visit Diagnoses Not on filedocumented in this encounter
--- OUTSIDE RECORDS SUMMARY | 2025-02-22 15:13 | XMS_ITS | Encounter Summary ---
Author Organization [facility] Address [address] [place] [address] Care Team Providers Care Piccolo Mechanic Name Role Phone Unavailable Primary Care Provider Unavailabl e Encounter Details Date Type Department Care Team (Late st Contact Info) Description 01/06/2024 Lab Requisition [facility] Laboratory Services [address] [place] [address] [place] [address] [place] [address] Social History Tobacco Use Types [...] CBC WITH DIFFERENTIAL (01/06/2024 2:15 AM CDT) [facility] WBC 9.3 4.5 - 10.5 K/uL 01/06/2024 4:57 AM CDT [facility] RBC 2.49(L) 3.90 - 4.90 M/uL 01/06/2024 4:57 AM CDT [facility] HEMOGLOBIN 7.0(L) 11.8 - 14.8 g/dL 01/06/2024 4:57 AM CDT [facility] - [facility] HEMATOCRIT 21.5(L) 35.5 - 44.0 % 01/06/2024 4:57 AM CDT [facility] MCV 86.1 82.0 - 99.0 fL 01/06/2024 4:57 AM CDT [facility] MCH 28.1 27.8 - 34.5 pg 01/06/2024 4:57 AM CDT [facility] MCHC 32.7 32.5 - 35.5 g/dL 01/06/2024 4:57 AM CDT [facility] RDW 15.4(H) 11.5 - 14.5 % 01/06/2024 4:57 AM CDT [facility] [place] PLATELETS 278 160 - 420 K/uL 01/06/2024 4:57 AM CDT [facility] MPV 9.9 8.7 - 12.7 fL 01/06/2024 4:57 AM CDT [facility] NEUTROPHILS 77 % 01/06/2024 4:57 AM CDT [facility] LYMPHOCYTES 11 % 01/06/2024 4:57 AM CDT [facility] [place] MONOCYTES 7 % 01/06/2024 4:57 AM CDT [facility] EOSINOPHILS 4 % 01/06/2024 4:57 AM CDT [facility] BASOPHILS 1 % 01/06/2024 4:57 AM CDT [facility] NEUTROPHIL ABSOLUTE 7.20(H) 1.90 - 7.00 K/uL 01/06/2024 4:57 AM CDT [facility] LYMPHOCYTE ABSOLUTE 1.00 0.70 - 4.50 K/uL 01/06/2024 4:57 AM CDT [facility] MONOCYTE ABSOLUTE 0.70 0.10 - 1.30 K/uL 01/06/2024 4:57 AM CDT [facility] EOSINOPHIL ABSOLUTE 0.40 0.00 - 0.70 K/uL 01/06/2024 4:57 AM CDT [facility] BASOPHILS ABSOLUTE 0.10 0.00 - 0.20 K/uL 01/06/2024 4:57 AM CDT [facility] Blood Collection / Unknown 01/06/2024 2:15 AM CDT 01/06/2024 4:38 AM CDT us Brianda Leblanc MD HEMATOLOGY ORDERABLES Final Resu lt [facility] CLIA# [id number] [address] [place] [address] documented in this encounter Visit Diagnoses Not on filedocumented in this encounter
--- OUTSIDE RECORDS SUMMARY | 2025-02-22 15:13 | XMS_ITS | Encounter Summary ---
Author Organization [facility] Address [address] [place] [address] Care Team Providers Care Laborer Operator Name Role Phone Unavailable Primary Care Provider Unavailabl e Encounter Details Date Type Department Care Team (Late st Contact Info) Description 01/17/2024 Lab Requisition [facility] Laboratory Services [address] [place] [address] [place] [address] [place] [address] Social History Tobacco Use Types [...] CBC WITH DIFFERENTIAL (01/17/2024 3:45 AM CDT) Pathologist [facility] WBC 9.8 4.5 - 10.5 K/uL 01/17/2024 8:43 AM CDT [facility] - [facility] RBC 3.10(L) 3.90 - 4.90 M/uL 01/17/2024 8:43 AM CDT [facility] HEMOGLOBIN 8.7(L) 11.8 - 14.8 g/dL 01/17/2024 8:43 AM CDT [facility] HEMATOCRIT 27.3(L) 35.5 - 44.0 % 01/17/2024 8:43 AM CDT [facility] MCV 87.9 82.0 - 99.0 fL 01/17/2024 8:43 AM CDT [facility] MCH 28.2 27.8 - 34.5 pg 01/17/2024 8:43 AM CDT [facility] MCHC 32.1(L) 32.5 - 35.5 g/dL 01/17/2024 8:43 AM CDT [facility] RDW 16.7(H) 11.5 - 14.5 % 01/17/2024 8:43 AM CDT [facility] PLATELETS 394 160 - 420 K/uL 01/17/2024 8:43 AM CDT [facility] MPV 9.7 8.7 - 12.7 fL 01/17/2024 8:43 AM CDT [facility] NEUTROPHILS 64 % 01/17/2024 8:43 AM CDT [facility] LYMPHOCYTES 22 % 01/17/2024 8:43 AM CDT [facility] MONOCYTES 7 % 01/17/2024 8:43 AM CDT [facility] EOSINOPHILS 6 % 01/17/2024 8:43 AM CDT [facility] BASOPHILS 1 % 01/17/2024 8:43 AM CDT [facility] NEUTROPHIL ABSOLUTE 6.30 1.90 - 7.00 K/uL 01/17/2024 8:43 AM CDT [facility] LYMPHOCYTE ABSOLUTE 2.10 0.70 - 4.50 K/uL 01/17/2024 8:43 AM CDT [facility] MONOCYTE ABSOLUTE 0.70 0.10 - 1.30 K/uL 01/17/2024 8:43 AM CDT [facility] EOSINOPHIL ABSOLUTE 0.60 0.00 - 0.70 K/uL 01/17/2024 8:43 AM CDT [facility] BASOPHILS ABSOLUTE 0.10 0.00 - 0.20 K/uL 01/17/2024 8:43 AM CDT [facility] Blood Collection / Unknown 01/17/2024 3:45 AM CDT 01/17/2024 8:21 AM CDT us Brianda Leblanc MD HEMATOLOGY ORDERABLES Final Resu lt [facility] CLIA# [id number] [place] [address] * BASIC METABOLIC PANEL (01/17/2024 3:45 AM CDT) SODIUM 137 136 - 145 mmol/L 01/17/2024 9:07 AM CDT [facility] POTASSIUM 4.3 3.4 - 5.1 mmol/L 01/17/2024 9:07 AM T [facility] CHLORIDE 99 98 - 107 mmol/L 01/17/2024 9:07 AM CDT [facility] CO2 27 22 - 29 mmol/L 01/17/2024 9:07 AM CDT [facility] CALCIUM 10.4 8.6 - 10.4 mg/dL 01/17/2024 9:07 AM T [facility] BUN 20 6 - 20 mg/dL 01/17/2024 9:07 AM T [facility] CREATININE 0.62 0.51 - 0.95 mg/dL 01/17/2024 9:07 AM T [facility] GLUCOSE 86 74 - 99 mg/dL 01/17/2024 9:07 AM T [facility] GFR >60 >=60 mL/min/1.7 3 sq meter 01/17/2024 9:07 AM T [facility] Comment:eGFR calculated with 2020 CKD-EPI equation. Vegetarian diet, extremely high or low muscle mass, and may affect results. Cystatin C with Glomerular Filtration Rate is a suitable alternative for these patients. ANION GAP 11 8 - 16 mmol/L 01/17/2024 9:07 AM CDT [facility] Blood Collection / Unknown 01/17/2024 3:45 AM CDT 01/17/2024 8:21 AM CDT us Brianda Leblanc MD CHEMISTRY ORDERABLES Final Resul t [facility] CLIA# [id number] [place] [address] documented in this encounter Visit Diagnoses Not on filedocumented in this encounter
--- OUTSIDE RECORDS SUMMARY | 2025-02-22 15:13 | XMS_ITS | Encounter Summary ---
Author Organization [facility] Address [address] [place] [address] Care Team Providers Care Ict Trainer Name Role Phone Unavailable Primary Care Provider Unavailabl e Encounter Details Date Type Department Care Team (Late st Contact Info) Description 01/16/2024 Lab Requisition [facility] Laboratory Services [address] [place] [address] [place] [address] [place] [address] Social History Tobacco Use Types [...] - 145 mmol/L 01/16/2024 1:53 AM CDT [facility]ORATORY SERVICES [facility] POTASSIUM 4.3 3.4 - 5.1 mmol/L 01/16/2024 1:53 AM CDT [facility] LABORATORY SERVICES [facility] Comment:Slightly hemolyzed. Result may be falsely elevated. CHLORIDE 96(L) 98 - 107 mmol/L 01/16/2024 1:53 AM CDT [facility] LABORATORY SERVICES [facility] CO2 24 22 - 29 mmol/L 01/16/2024 1:53 AM CDT [facility] CALCIUM 10.1 8.6 - 10.4 mg/dL 01/16/2024 1:53 AM CDT [facility] BUN 21(H) 6 - 20 mg/dL 01/16/2024 1:53 AM T [facility] CREATININE 0.67 0.51 - 0.95 mg/dL 01/16/2024 1:53 AM CDT [facility] GLUCOSE 104(H) 74 - 99 mg/dL 01/16/2024 1:53 AM CDT [facility] GFR >60 >=60 mL/min/1.7 3 sq meter 01/16/2024 1:53 AM T [facility] Comment:eGFR calculated with 2020 CKD-EPI equation. Vegetarian diet, extremely high or low muscle mass, and may affect results. Cystatin C with Glomerular Filtration Rate is a suitable alternative for these patients. ANION GAP 14 8 - 16 mmol/L 01/16/2024 1:53 AM T [facility] Blood 01/16/2024 12:3 0 AM CDT 01/16/2024 1:10 AM CDT Brianda Leblanc MD CHEMISTRY ORDERABLES Final Resul t [facility] CLIA# [id number] [place] [address] documented in this encounter Visit Diagnoses Not on filedocumented in this encounter
--- OUTSIDE RECORDS SUMMARY | 2025-02-22 15:13 | XMS_ITS | Encounter Summary ---
Author Organization [facility] Address [address] [place] [address] Care Team Providers Care Stevedoring Superintendent Name Role Phone Unavailable Primary Care Provider Unavailabl e Encounter Details Date Type Department Care Team (Late st Contact Info) Description 01/23/2024 Lab Requisition [facility] Laboratory Services [address] [place] [address] [place] [address] [place] [address] Social History Tobacco Use Types [...] DIFFERENTIAL (01/23/2024 3:00 AM CDT) Pathologist [facility] WBC 7.9 4.5 - 10.5 K/uL 01/23/2024 7:24 AM CDT [facility] - [facility] RBC 3.00(L) 3.90 - 4.90 M/uL 01/23/2024 7:24 AM CDT [facility] HEMOGLOBIN 8.6(L) 11.8 - 14.8 g/dL 01/23/2024 7:24 AM CDT [facility] - [facility] HEMATOCRIT 26.3(L) 35.5 - 44.0 % 01/23/2024 7:24 AM CDT [facility] MCV 87.6 82.0 - 99.0 fL 01/23/2024 7:24 AM CDT [facility] MCH 28.5 27.8 - 34.5 pg 01/23/2024 7:24 AM CDT [facility] MCHC 32.6 32.5 - 35.5 g/dL 01/23/2024 7:24 AM CDT [facility] RDW 16.3(H) 11.5 - 14.5 % 01/23/2024 7:24 AM CDT [facility] PLATELETS 383 160 - 420 K/uL 01/23/2024 7:24 AM CDT [facility] MPV 9.0 8.7 - 12.7 fL 01/23/2024 7:24 AM CDT [facility] NEUTROPHILS 50 % 01/23/2024 7:24 AM CDT [facility] LYMPHOCYTES 29 % 01/23/2024 7:24 AM CDT [facility] MONOCYTES 11 % 01/23/2024 7:24 AM CDT [facility] EOSINOPHILS 8 % 01/23/2024 7:24 AM CDT [facility] BASOPHILS 1 % 01/23/2024 7:24 AM CDT [facility] NEUTROPHIL ABSOLUTE 3.90 1.90 - 7.00 K/uL 01/23/2024 7:24 AM CDT [facility] LYMPHOCYTE ABSOLUTE 2.30 0.70 - 4.50 K/uL 01/23/2024 7:24 AM CDT [facility] MONOCYTE ABSOLUTE 0.90 0.10 - 1.30 K/uL 01/23/2024 7:24 AM CDT [facility] EOSINOPHIL ABSOLUTE 0.70 0.00 - 0.70 K/uL 01/23/2024 7:24 AM CDT [facility] BASOPHILS ABSOLUTE 0.10 0.00 - 0.20 K/uL 01/23/2024 7:24 AM CDT [facility] Blood Collection / Unknown 01/23/2024 3:00 AM CDT 01/23/2024 7:10 AM CDT Brianda Leblanc MD HEMATOLOGY ORDERABLES Final Resu lt [facility] CLIA# [id number] [place] [address] * (ABNORMAL) BASIC METABOLIC PANEL (01/23/2024 3:00 AM CDT) SODIUM 136 136 - 145 mmol/L 01/23/2024 7:48 AM CDT [facility] POTASSIUM 4.0 3.4 - 5.1 mmol/L 01/23/2024 7:48 AM [facility] CHLORIDE 97(L) 98 - 107 mmol/L 01/23/2024 7:48 AM T [facility] CO2 26 22 - 29 mmol/L 01/23/2024 7:48 AM T [facility] CALCIUM 10.2 8.6 - 10.4 mg/dL 01/23/2024 7:48 AM [facility] BUN 16 6 - 20 mg/dL 01/23/2024 7:48 AM [facility] CREATININE 0.70 0.51 - 0.95 mg/dL 01/23/2024 7:48 AM T [facility] GLUCOSE 91 74 - 99 mg/dL 01/23/2024 7:48 AM T [facility] GFR >60 >=60 mL/min/1.7 3 sq meter 01/23/2024 7:48 AM T [facility] Comment:eGFR calculated with 2020 CKD-EPI equation. Vegetarian diet, extremely high or low muscle mass, and may affect results. Cystatin C with Glomerular Filtration Rate is a suitable alternative for these patients. ANION GAP 13 8 - 16 mmol/L 01/23/2024 7:48 AM CDT [facility] Blood Collection / Unknown 01/23/2024 3:00 AM CDT 01/23/2024 7:10 AM CDT us Brianda Leblanc MD CHEMISTRY ORDERABLES Final Resul t [facility] CLIA# [id number] [place] [address] documented in this encounter Visit Diagnoses Not on filedocumented in this encounter
--- OUTSIDE RECORDS SUMMARY | 2025-02-22 15:13 | XMS_ITS | Encounter Summary ---
Author Organization [facility] Address [address] [place] [address] Care Team Providers Care Isotope Technician Name Role Phone Unavailable Primary Care Provider Unavailabl e Encounter Details Date Type Department Care Team (Late st Contact Info) Description 01/14/2024 Lab Requisition [facility] Laboratory Services [address] [place] [address] [place] [address] [place] [address] Social History Tobacco Use Types [...] - 10.5 K/uL 01/14/2024 9:11 AM CDT [facility] LABORATORY SERVICES [facility] RBC 2.96(L) 3.90 - 4.90 M/uL 01/14/2024 9:11 AM CDT [facility] LABORATORY [facility] HEMOGLOBIN 8.5(L) 11.8 - 14.8 g/dL 01/14/2024 9:11 AM CDT [facility] HEMATOCRIT 25.7(L) 35.5 - 44.0 % 01/14/2024 9:11 AM CDT [facility] LABORATORY SERVICES [facility] MCV 86.8 82.0 - 99.0 fL 01/14/2024 9:11 AM CDT [facility] LABORATORY SERVICES [facility] MCH 28.8 27.8 - 34.5 pg 01/14/2024 9:11 AM CDT [facility] LABORATORY SERVICES [facility] MCHC 33.1 32.5 - 35.5 g/dL 01/14/2024 9:11 AM CDT [facility] LABORATORY SERVICES [facility] RDW 16.8(H) 11.5 - 14.5 % 01/14/2024 9:11 AM CDT [facility] LABORATORY SERVICES [facility] PLATELETS 376 160 - 420 K/uL 01/14/2024 9:11 AM CDT [facility] LABORATORY SERVICES [facility] MPV 10.2 8.7 - 12.7 fL 01/14/2024 9:11 AM CDT [facility] LABORATORY SERVICES [facility] NEUTROPHILS 61 % 01/14/2024 9:11 AM CDT [facility] LABORATORY SERVICES [facility] LYMPHOCYTES 25 % 01/14/2024 9:11 AM CDT [facility] LABORATORY SERVICES [facility] MONOCYTES 9 % 01/14/2024 9:11 AM CDT [facility] LABORATORY SERVICES [facility] EOSINOPHILS 4 % 01/14/2024 9:11 AM CDT [facility] LABORATORY SERVICES [facility] BASOPHILS 1 % 01/14/2024 9:11 AM CDT [facility] LABORATORY SERVICES [facility] NEUTROPHIL ABSOLUTE 7.00 1.90 - 7.00 K/uL 01/14/2024 9:11 AM CDT [facility] LABORATORY SERVICES [facility] LYMPHOCYTE ABSOLUTE 2.90 0.70 - 4.50 K/uL 01/14/2024 9:11 AM CDT [facility] LABORATORY SERVICES [facility] MONOCYTE ABSOLUTE 1.10 0.10 - 1.30 K/uL 01/14/2024 9:11 AM CDT [facility] LABORATORY SERVICES [facility] EOSINOPHIL ABSOLUTE 0.50 0.00 - 0.70 K/uL 01/14/2024 9:11 AM CDT [facility] LABORATORY SERVICES [facility] BASOPHILS ABSOLUTE 0.10 0.00 - 0.20 K/uL 01/14/2024 9:11 AM CDT [facility] Blood Collection / Unknown 01/14/2024 3:00 AM CDT 01/14/2024 8:52 AM CDT us Brianda Leblanc MD HEMATOLOGY ORDERABLES Final Resu lt [facility] CLIA# [id number] [place] [address] * (ABNORMAL) BASIC METABOLIC PANEL (01/14/2024 3:00 AM CDT) SODIUM 132(L) 136 - 145 mmol/L 01/14/2024 9:30 AM CDT [facility] POTASSIUM 4.6 3.4 - 5.1 mmol/L 01/14/2024 9:30 AM [facility] CHLORIDE 94(L) 98 - 107 mmol/L 01/14/2024 9:30 AM T [facility] CO2 24 22 - 29 mmol/L 01/14/2024 9:30 AM T [facility] CALCIUM 10.0 8.6 - 10.4 mg/dL 01/14/2024 9:30 AM [facility] BUN 21(H) 6 - 20 mg/dL 01/14/2024 9:30 AM T [facility] CREATININE 0.75 0.51 - 0.95 mg/dL 01/14/2024 9:30 AM T [facility] GLUCOSE 85 74 - 99 mg/dL 01/14/2024 9:30 AM T [facility] GFR >60 >=60 mL/min/1.7 3 sq meter 01/14/2024 9:30 AM T [facility] Comment:eGFR calculated with 2020 CKD-EPI equation. Vegetarian diet, extremely high or low muscle mass, and may affect results. Cystatin C with Glomerular Filtration Rate is a suitable alternative for these patients. ANION GAP 14 8 - 16 mmol/L 01/14/2024 9:30 AM CDT [facility] LABORATORY [facility] Blood Collection / Unknown 01/14/2024 3:00 AM CDT 01/14/2024 8:52 AM CDT us Brianda Leblanc MD CHEMISTRY ORDERABLES Final Resul t [facility] LABORATORY [facility] CLIA# [id number] [place] [address] documented in this encounter Visit Diagnoses Not on filedocumented in this encounter
--- OUTSIDE RECORDS SUMMARY | 2025-02-22 15:13 | XMS_ITS | Encounter Summary ---
Author Organization [facility] Address [address] [place] [address] Care Team Providers Care Manager Managed Care Name Role Phone Unavailable Primary Care Provider Unavailabl e Encounter Details Date Type Department Care Team (Late st Contact Info) Description 01/08/2024 Lab Requisition [facility] Laboratory Services [address] [place] [address] [place] [address] [place] [address] Social History Tobacco Use Types [...] 3:50 AM CDT 01/08/2024 7:39 AM CDT Brianda Leblanc MD HEMATOLOGY ORDERABLES Final Resu lt [facility] LABORATORY SERVICES [facility] CLIA# [id number] [place] [address] * (ABNORMAL) CBC WITH DIFFERENTIAL (01/08/2024 3:50 AM CDT) [facility] WBC 7.6 4.5 - 10.5 K/uL 01/08/2024 7:57 AM CDT [facility] LABORATORY [facility] RBC 2.62(L) 3.90 - 4.90 M/uL 01/08/2024 7:57 AM CDT [facility] LABORATORY [facility] HEMOGLOBIN 7.4(L) 11.8 - 14.8 g/dL 01/08/2024 7:57 AM CDT [facility] LABORATORY [facility] HEMATOCRIT 22.9(L) 35.5 - 44.0 % 01/08/2024 7:57 AM CDT [facility] LABORATORY [facility] MCV 87.2 82.0 - 99.0 fL 01/08/2024 7:57 AM CDT [facility] LABORATORY [facility] MCH 28.3 27.8 - 34.5 pg 01/08/2024 7:57 AM CDT [facility] LABORATORY [facility] MCHC 32.4(L) 32.5 - 35.5 g/dL 01/08/2024 7:57 AM CDT [facility] LABORATORY [facility] RDW 15.4(H) 11.5 - 14.5 % 01/08/2024 7:57 AM CDT [facility] LABORATORY [facility] PLATELETS 240 160 - 420 K/uL 01/08/2024 7:57 AM CDT [facility] LABORATORY [facility] MPV 10.2 8.7 - 12.7 fL 01/08/2024 7:57 AM CDT [facility] LABORATORY [facility] NEUTROPHILS 62 % 01/08/2024 7:57 AM CDT [facility] LABORATORY [facility] LYMPHOCYTES 20 % 01/08/2024 7:57 AM CDT [facility] LABORATORY [facility] MONOCYTES 8 % 01/08/2024 7:57 AM CDT [facility] LABORATORY [facility] EOSINOPHILS 9 % 01/08/2024 7:57 AM CDT [facility] LABORATORY [facility] BASOPHILS 1 % 01/08/2024 7:57 AM CDT [facility] LABORATORY [facility] NEUTROPHIL ABSOLUTE 4.70 1.90 - 7.00 K/uL 01/08/2024 7:57 AM CDT [facility] LABORATORY [facility] LYMPHOCYTE ABSOLUTE 1.50 0.70 - 4.50 K/uL 01/08/2024 7:57 AM CDT [facility] LABORATORY [facility] MONOCYTE ABSOLUTE 0.60 0.10 - 1.30 K/uL 01/08/2024 7:57 AM CDT [facility] LABORATORY SERVICES [facility] EOSINOPHIL ABSOLUTE 0.70 0.00 - 0.70 K/uL 01/08/2024 7:57 AM CDT [facility] LABORATORY SERVICES - [facility] BASOPHILS ABSOLUTE 0.10 0.00 - 0.20 K/uL 01/08/2024 7:57 AM CDT [facility] LABORATORY [facility] Blood 01/08/2024 3:50 AM CDT 01/08/2024 7:39 AM CDT us Brianda Leblanc MD HEMATOLOGY ORDERABLES Final Resu lt [facility] CLIA# [id number] [place] [address] * (ABNORMAL) COMPREHENSIVE METABOLIC PANEL (01/08/2024 3:50 AM CDT) SODIUM 138 136 - 145 mmol/L 01/08/2024 8:24 AM CDT [facility] POTASSIUM 3.8 3.4 - 5.1 mmol/L 01/08/2024 8:24 AM CDT [facility] LABORATORY [facility] CHLORIDE 102 98 - 107 mmol/L 01/08/2024 8:24 AM CDT [facility] LABORATORY [facility] CO2 25 22 - 29 mmol/L 01/08/2024 8:24 AM CDT [facility] CALCIUM 9.0 8.6 - 10.4 mg/dL 01/08/2024 8:24 AM CDT [facility] LABORATORY [facility] BUN 18 6 - 20 mg/dL 01/08/2024 8:24 AM CDT [facility] LABORATORY [facility] CREATININE 0.48(L) 0.51 - 0.95 mg/dL 01/08/2024 8:24 AM T [facility] GLUCOSE 127(H) 74 - 99 mg/dL 01/08/2024 8:24 AM CDT [facility] TOTAL PROTEIN 6.3 6.3 - 8.7 g/dL 01/08/2024 8:24 AM T [facility] ALBUMIN 2.5(L) 3.5 - 5.2 g/dL 01/08/2024 8:24 AM CDT [facility] BILIRUBIN TOTAL 0.2 0.2 - 1.1 mg/dL 01/08/2024 8:24 AM T [facility] ALKALINE PHOSPHATASE 210(H) 40 - 150 U/L 01/08/2024 8:24 AM T [facility] AST 20 0 - 33 U/L 01/08/2024 8:24 AM T [facility] ALT 16 0 - 33 U/L 01/08/2024 8:24 AM T [facility] GFR >60 >=60 mL/min/1.7 3 sq meter 01/08/2024 8:24 AM [facility] Comment:eGFR calculated with 2020 CKD-EPI equation. Vegetarian diet, extremely high or low muscle mass, and may affect results. Cystatin C with Glomerular Filtration Rate is a suitable alternative for these patients. ANION GAP 11 8 - 16 mmol/L 01/08/2024 8:24 AM T [facility] Blood 01/08/2024 3:50 AM CDT 01/08/2024 7:39 AM CDT us Brianda Leblanc MD CHEMISTRY ORDERABLES Final Resul t [facility] CLIA# [id number] [address] documented in this encounter Visit Diagnoses Not on filedocumented in this encounter
--- OUTSIDE RECORDS SUMMARY | 2025-02-22 15:13 | XMS_ITS | Clinical Summary ---
Author Organization [facility] Address [address] [place] [address] Phone Care Team Providers Care Fur Blower Operator Name Role Phone Unavailable Primary Care [...]
--- OUTSIDE RECORDS SUMMARY | 2025-02-22 15:13 | XMS_ITS | Encounter Summary ---
Author Organization [facility] Address [address] [place] [address] Care Team Providers Care Superintendent Plant Protection Name Role Phone Unavailable Primary Care Provider Unavailabl e Encounter Details Date Type Department Care Team (Late st Contact Info) Description 01/06/2024 Lab Requisition [facility] Laboratory Services [address] [place] [address] [place] [address] [place] [address] Social History Tobacco Use Types [...] ALBICANS(A) COSTA MCG/ML 01/08/2024 8:00 AM CDT [facility] Urine URINE SPECIMEN OBTAINED BY CLEAN CATCH PROCEDURE / Unknown Collection / Unknown 01/06/2024 1:30 PM CDT 01/06/2024 4:08 PM CDT Brianda Leblanc MD MICROBIOLOGY - GENERAL ORDERABLE S Final Result [facility] CLIA# [id number] [address] [place] [address] * EXTRA TUBE (URINE MURPHY) (01/06/2024 1:30 PM CDT) Urine URINE SPECIMEN OBTAINED BY CLEAN CATCH PROCEDURE / Unknown 01/06/2024 1:30 PM CDT 01/06/2024 3:44 PM CDT Brianda Leblanc MD URINE ORDERABLES Final Result [facility] CLIA# [id number] [place] [address] * (ABNORMAL) URINALYSIS WITH REFLEX CULTURE (01/06/2024 1:30 PM CDT) COLOR UA Yellow Pale to Dark Yellow 01/06/2024 4:08 PM CDT [facility] CLARITY UA Slightly Cloudy(A) Clear 01/06/2024 4:08 PM CDT [facility] SPECIFIC GRAVITY UA 1.014 1.003 - 1.035 01/06/2024 4:08 PM CDT [facility] PH UA 6.0 5.0 - 8.0 01/06/2024 4:08 PM CDT [facility] LEUKOCYTE ESTERASE UA 2+(A) Negative 01/06/2024 4:08 PM CDT [facility] NITRITE UA Negative Negative 01/06/2024 4:08 PM CDT [facility] PROTEIN UA 1+(A) Negative 01/06/2024 4:08 PM CDT [facility] GLUCOSE UA Negative Negative 01/06/2024 4:08 PM CDT [facility] KETONES UA Negative Negative 01/06/2024 4:08 PM CDT [facility] UROBILINOGEN UA Normal <2.0 mg/dL 4:08 PM CDT [facility] BILIRUBIN UA Negative Negative 01/06/2024 4:08 PM CDT [facility] BLOOD UA Negative Negative 01/06/2024 4:08 PM CDT [facility] Comment:Ascorbic acid may ca use false negative results for blood. A microscopic review was reflexed to rule out this interference. WBC UA >100(A) 0 - 2 /hpf 01/06/2024 4:08 PM CDT [facility] RBC UA 3-5(A) 0 - 2 /hpf 01/06/2024 4:08 PM CDT [facility] BACTERIA UA 1+(A) Negative /hpf 01/06/2024 4:08 PM CDT [facility] EPITHELIAL CELLS, URINE 0-5 0 - 5 /hpf 01/06/2024 4:08 PM CDT [facility] HYALINE CAST None Seen None Seen, 0-2 /lpf 01/06/2024 4:08 PM CDT [facility] Ascorbic Acid UA Positive(A) Negative 024 4:08 PM CDT [facility] Urine URINE SPECIMEN OBTAINED BY CLEAN CATCH PROCEDURE / Unknown Collection / Unknown 01/06/2024 1:30 PM CDT 01/06/2024 3:44 PM CDT Narrative [facility] - 01/06/2024 4:08 PM CDT Based on results, a urine culture has been reflexed. us Brianda Leblanc MD URINE ORDERABLES Final Result [facility] CLIA# [id number] [place] [address] documented in this encounter Visit Diagnoses Not on filedocumented in this encounter
--- OUTSIDE RECORDS SUMMARY | 2025-02-22 15:13 | XMS_ITS | Encounter Summary ---
Author Organization [facility] Address [address] [place] [address] Care Team Providers Care Detective Supervisor Name Role Phone Unavailable Primary Care Provider Unavailabl e Encounter Details Date Type Department Care Team (Late st Contact Info) Description 01/20/2024 Lab Requisition [facility] Laboratory Services [address] [place] [address] [place] [address] [place] [address] Social History Tobacco Use [...] - 10.5 K/uL 01/20/2024 7:36 AM CDT [facility] LABORATORY [facility] RBC 2.89(L) 3.90 - 4.90 M/uL 01/20/2024 7:36 AM CDT [facility] HEMOGLOBIN 8.4(L) 11.8 - 14.8 g/dL 01/20/2024 7:36 AM CDT [facility] LABORATORY [facility] HEMATOCRIT 25.0(L) 35.5 - 44.0 % 01/20/2024 7:36 AM CDT [facility] LABORATORY SERVICES [facility] MCV 86.4 82.0 - 99.0 fL 01/20/2024 7:36 AM CDT [facility] LABORATORY SERVICES [facility] MCH 29.0 27.8 - 34.5 pg 01/20/2024 7:36 AM CDT [facility] LABORATORY SERVICES [facility] MCHC 33.6 32.5 - 35.5 g/dL 01/20/2024 7:36 AM CDT [facility] LABORATORY SERVICES [facility] RDW 16.2(H) 11.5 - 14.5 % 01/20/2024 7:36 AM CDT [facility] LABORATORY SERVICES [facility] PLATELETS 406 160 - 420 K/uL 01/20/2024 7:36 AM CDT [facility] LABORATORY SERVICES [facility] MPV 9.5 8.7 - 12.7 fL 01/20/2024 7:36 AM CDT [facility] LABORATORY SERVICES [facility] NEUTROPHILS 60 % 01/20/2024 7:36 AM CDT [facility] LABORATORY SERVICES [facility] LYMPHOCYTES 24 % 01/20/2024 7:36 AM CDT [facility] LABORATORY SERVICES [facility] MONOCYTES 10 % 01/20/2024 7:36 AM CDT [facility]ORATORY SERVICES [facility] EOSINOPHILS 6 % 01/20/2024 7:36 AM CDT [facility]ORATORY SERVICES [facility] BASOPHILS 1 % 01/20/2024 7:36 AM CDT [facility] LABORATORY SERVICES [facility] NEUTROPHIL ABSOLUTE 6.20 1.90 - 7.00 K/uL 01/20/2024 7:36 AM CDT [facility] LABORATORY SERVICES [facility] LYMPHOCYTE ABSOLUTE 2.50 0.70 - 4.50 K/uL 01/20/2024 7:36 AM CDT [facility] LABORATORY SERVICES [facility] MONOCYTE ABSOLUTE 1.00 0.10 - 1.30 K/uL 01/20/2024 7:36 AM CDT [facility] LABORATORY SERVICES [facility] EOSINOPHIL ABSOLUTE 0.60 0.00 - 0.70 K/uL 01/20/2024 7:36 AM CDT [facility] LABORATORY SERVICES [facility] BASOPHILS ABSOLUTE 0.10 0.00 - 0.20 K/uL 01/20/2024 7:36 AM T [facility] Blood 01/20/2024 4:00 AM CDT 01/20/2024 7:16 AM CDT Brianda Leblanc MD HEMATOLOGY ORDERABLES Final Resu lt [facility] CLIA# [id number] [place] [address] * (ABNORMAL) BASIC METABOLIC PANEL (01/20/2024 4:00 AM CDT) SODIUM 131(L) 136 - 145 mmol/L 01/20/2024 8:01 AM T [facility] POTASSIUM 4.1 3.4 - 5.1 mmol/L 01/20/2024 8:01 AM [facility] CHLORIDE 95(L) 98 - 107 mmol/L 01/20/2024 8:01 AM T [facility] CO2 25 22 - 29 mmol/L 01/20/2024 8:01 AM [facility] CALCIUM 10.1 8.6 - 10.4 mg/dL 01/20/2024 8:01 AM [facility] BUN 16 6 - 20 mg/dL 01/20/2024 8:01 AM [facility] CREATININE 0.65 0.51 - 0.95 mg/dL 01/20/2024 8:01 AM [facility] GLUCOSE 93 74 - 99 mg/dL 01/20/2024 8:01 AM [facility] GFR >60 >=60 mL/min/1.7 3 sq meter 01/20/2024 8:01 AM [facility] Comment:eGFR calculated with 2020 CKD-EPI equation. Vegetarian diet, extremely high or low muscle mass, and may affect results. Cystatin C with Glomerular Filtration Rate is a suitable alternative for these patients. ANION GAP 11 8 - 16 mmol/L 01/20/2024 8:01 AM CDT [facility] LABORATORY SERVICES [facility] Blood 01/20/2024 4:00 AM CDT 01/20/2024 7:16 AM CDT us Brianda Leblanc MD CHEMISTRY ORDERABLES Final Resul t [facility] LABORATORY SERVICES [facility] CLIA# [id number] [place] [address] documented in this encounter Visit Diagnoses Not on filedocumented in this encounter
--- OUTSIDE RECORDS SUMMARY | 2025-02-22 15:13 | XMS_ITS | Clinical Summary ---
Author Organization [facility] Address [address] [place] [address] Care Team Providers Care Fire Management Technician Name Role Phone Shivam Chester MD Unavailable [phone] Reid Engle MD Primary Care Provider [phone] Source Comments [facility],non-owned Affiliates and Associated Physician Practices is amultiple site organization consisting of ambulatory clinics and hospital sitesin [place], [place], [place] and [place]. This disclosure is being madepursuant to the Care Everywhere program and may not contain all information available regarding this patient. Last updated 17.[facility] Allergies Active Allergy Reactions Criticality Noted Date [...] by mouth once daily Active HYDROcodone-acet aminophen ([place]) 5-325 MG tabletIndication s:S/P sinus surgery Take [...] on file Legal Sex Female 8:38 AM [employer]IFT [employer] Gender Identity Not on file Sexual Orientation [...] 1975 DTAP/TDAP/TD VACCINES (1 - Tdap) 1979 PAP with HPV 1990 Respiratory Syncytial Virus (RSV) Vaccine Pt: or over 60 yrs (1 - Risk 50-74 years 1-dose series) 2010 ZOSTER VACCINE (1 of 2) 2010 Cervical Cancer Screening 03/31/2014 PAP SMEAR 03/31/2014 03/31/2011 (Prev iously completed) MAMMOGRAM 08/28/2015 08/27/2013 (Othe r - see comments) COLONOSCOPY - COLON CA SCREENING 08/29/2017 08/30/2007 (Previously completed) Colorectal Cancer Screening 08/29/2017 DEPRESSION SCREENING 03/31/2024 MEDICARE AWV CALENDAR YEAR [...] age to complete this topic Insurance MEDICARE [facility] MEDICARE DUAL ADV [place] Care Teams Fire Management Technician Relationship Specialty [place] [address] [place] [phone] PCP - General Internal Medicine 06/06/14 Shivam Chester MD [address] [place] [id number] Pulmonary Disease 09/01/13
--- OUTSIDE RECORDS SUMMARY | 2025-02-22 15:13 | XMS_ITS | Encounter Summary ---
Author Organization [facility] Address [address] [place] [address] Care Team Providers Care Child Nutrition Director Name Role Phone Unavailable Primary Care Provider Unavailabl e Encounter Details Date Type Department Care Team (Late st Contact Info) Description 01/11/2024 Lab Requisition [facility] Laboratory Services [id number] [place] [address] [place] [address] [place] [address] Social History Tobacco Use Types [...] - 10.5 K/uL 01/11/2024 8:58 AM CDT [facility] RBC 2.72(L) 3.90 - 4.90 M/uL 01/11/2024 8:58 AM CDT [facility] HEMOGLOBIN 7.8(L) 11.8 - 14.8 g/dL 01/11/2024 8:58 AM CDT [facility] HEMATOCRIT 23.8(L) 35.5 - 44.0 % 01/11/2024 8:58 AM CDT [facility] SERVICES [facility] MCV 87.4 82.0 - 99.0 fL 01/11/2024 8:58 AM CDT [facility] SERVICES [facility] MCH 28.5 27.8 - 34.5 pg 01/11/2024 8:58 AM CDT [facility] SERVICES [facility] MCHC 32.6 32.5 - 35.5 g/dL 01/11/2024 8:58 AM CDT [facility] SERVICES [facility] RDW 16.2(H) 11.5 - 14.5 % 01/11/2024 8:58 AM CDT [facility] SERVICES [facility] PLATELETS 270 160 - 420 K/uL 01/11/2024 8:58 AM CDT [facility] SERVICES [facility] MPV 10.2 8.7 - 12.7 fL 01/11/2024 8:58 AM CDT [facility] SERVICES [facility] NEUTROPHILS 65 % 01/11/2024 8:58 AM CDT [facility] SERVICES [facility] LYMPHOCYTES 20 % 01/11/2024 8:58 AM CDT [facility] SERVICES [facility] MONOCYTES 8 % 01/11/2024 8:58 AM CDT [facility] SERVICES [facility] EOSINOPHILS 6 % 01/11/2024 8:58 AM CDT [facility] SERVICES [facility] BASOPHILS 1 % 01/11/2024 8:58 AM CDT [facility] SERVICES [facility] NEUTROPHIL ABSOLUTE 7.30(H) 1.90 - 7.00 K/uL 01/11/2024 8:58 AM CDT [facility] SERVICES [facility] LYMPHOCYTE ABSOLUTE 2.30 0.70 - 4.50 K/uL 01/11/2024 8:58 AM CDT [facility] SERVICES [facility] MONOCYTE ABSOLUTE 0.90 0.10 - 1.30 K/uL 01/11/2024 8:58 AM CDT [facility] SERVICES [facility] EOSINOPHIL ABSOLUTE 0.70 0.00 - 0.70 K/uL 01/11/2024 8:58 AM CDT [facility] SERVICES [facility] BASOPHILS ABSOLUTE 0.10 0.00 - 0.20 K/uL 01/11/2024 8:58 AM CDT [facility] Blood Collection / Unknown 01/11/2024 3:00 AM CDT 01/11/2024 8:17 AM CDT us Brianda Leblanc MD HEMATOLOGY ORDERABLES Final Resu lt [facility] CLIA# [id number] [place] [address] * (ABNORMAL) BASIC METABOLIC PANEL (01/11/2024 3:00 AM CDT) SODIUM 137 136 - 145 mmol/L 01/11/2024 9:10 AM T [facility] POTASSIUM 4.5 3.4 - 5.1 mmol/L 01/11/2024 9:10 AM [facility] Comment:Slightly hemolyzed. Result may be falsely elevated. CHLORIDE 98 98 - 107 mmol/L 01/11/2024 9:10 AM [facility] CO2 28 22 - 29 mmol/L 01/11/2024 9:10 AM [facility] CALCIUM 9.8 8.6 - 10.4 mg/dL 01/11/2024 9:10 AM [facility] BUN 16 6 - 20 mg/dL 01/11/2024 9:10 AM [facility] CREATININE 0.69 0.51 - 0.95 mg/dL 01/11/2024 9:10 AM T [facility] GLUCOSE 71(L) 74 - 99 mg/dL 01/11/2024 9:10 AM T [facility] GFR >60 >=60 mL/min/1.7 3 sq meter 01/11/2024 9:10 AM [facility] Comment:eGFR calculated with 2020 CKD-EPI equation. Vegetarian diet, extremely high or low muscle mass, and may affect results. Cystatin C with Glomerular Filtration Rate is a suitable alternative for these patients. ANION GAP 11 8 - 16 mmol/L 01/11/2024 9:10 AM CDT [facility] Blood Collection / Unknown 01/11/2024 3:00 AM CDT 01/11/2024 8:17 AM CDT us Brianda Leblanc MD CHEMISTRY ORDERABLES Final Resul t [facility] SERVICES [facility] CLIA# [id number] [place] [address] documented in this encounter Visit Diagnoses Not on filedocumented in this encounter
--- OUTSIDE RECORDS SUMMARY | 2025-02-22 15:13 | XMS_ITS | Encounter Summary ---
Author Organization [facility] Address [address] [place] [address] Care Team Providers Care Telemarketing Manager Name Role Phone Unavailable Primary Care Provider Unavailabl e Encounter Details Date Type Department Care Team (Late st Contact Info) Description 01/05/2024 Lab Requisition [facility] Laboratory Services [address] [place] [address] [place] [address] [place] [address] Social History Tobacco Use Types [...] CBC WITH DIFFERENTIAL (01/05/2024 3:08 AM CDT) WBC 9.6 4.5 - 10.5 K/uL 01/05/2024 7:13 AM CDT [facility] SERVICES - [facility] RBC 3.08(L) 3.90 - 4.90 M/uL 01/05/2024 7:13 AM CDT [facility] HEMOGLOBIN 8.7(L) 11.8 - 14.8 g/dL 01/05/2024 7:13 AM CDT [facility] HEMATOCRIT 26.7(L) 35.5 - 44.0 % 01/05/2024 7:13 AM CDT [facility] SERVICES - [facility] MCV 86.9 82.0 - 99.0 fL 01/05/2024 7:13 AM CDT [facility] SERVICES - [facility] MCH 28.3 27.8 - 34.5 pg 01/05/2024 7:13 AM CDT [facility] SERVICES [facility] MCHC 32.5 32.5 - 35.5 g/dL 01/05/2024 7:13 AM CDT [facility] SERVICES [facility] RDW 15.4(H) 11.5 - 14.5 % 01/05/2024 7:13 AM CDT [facility] SERVICES - [facility] PLATELETS 342 160 - 420 K/uL 01/05/2024 7:13 AM CDT [facility] SERVICES [facility] MPV 10.5 8.7 - 12.7 fL 01/05/2024 7:13 AM CDT [facility] SERVICES - [facility] NEUTROPHILS 76 % 01/05/2024 7:13 AM CDT [facility] SERVICES [facility] LYMPHOCYTES 13 % 01/05/2024 7:13 AM CDT [facility] SERVICES [facility] MONOCYTES 8 % 01/05/2024 7:13 AM CDT [facility] SERVICES [facility] EOSINOPHILS 3 % 01/05/2024 7:13 AM CDT [facility] SERVICES [facility] BASOPHILS 1 % 01/05/2024 7:13 AM CDT [facility] SERVICES [facility] NEUTROPHIL ABSOLUTE 7.30(H) 1.90 - 7.00 K/uL 01/05/2024 7:13 AM CDT [facility] SERVICES [facility] LYMPHOCYTE ABSOLUTE 1.20 0.70 - 4.50 K/uL 01/05/2024 7:13 AM CDT [facility] SERVICES [facility] MONOCYTE ABSOLUTE 0.70 0.10 - 1.30 K/uL 01/05/2024 7:13 AM CDT [facility] SERVICES [facility] EOSINOPHIL ABSOLUTE 0.30 0.00 - 0.70 K/uL 01/05/2024 7:13 AM CDT [facility] SERVICES [facility] BASOPHILS ABSOLUTE 0.10 0.00 - 0.20 K/uL 01/05/2024 7:13 AM T [facility] Blood Collection / Unknown 01/05/2024 3:08 AM CDT 01/05/2024 7:03 AM CDT us Brianda Leblanc MD HEMATOLOGY ORDERABLES Final Resu lt [facility] CLIA# [id number] [place] [address] * (ABNORMAL) BASIC METABOLIC PANEL (01/05/2024 3:08 AM CDT) SODIUM 136 136 - 145 mmol/L 01/05/2024 7:41 AM T [facility] POTASSIUM 4.4 3.4 - 5.1 mmol/L 01/05/2024 7:41 AM [facility] CHLORIDE 98 98 - 107 mmol/L 01/05/2024 7:41 AM [facility] CO2 24 22 - 29 mmol/L 01/05/2024 7:41 AM [facility] CALCIUM 9.2 8.6 - 10.4 mg/dL 01/05/2024 7:41 AM [facility] BUN 18 6 - 20 mg/dL 01/05/2024 7:41 AM [facility] CREATININE 0.63 0.51 - 0.95 mg/dL 01/05/2024 7:41 AM T [facility] GLUCOSE 142(H) 74 - 99 mg/dL 01/05/2024 7:41 AM T [facility] GFR >60 >=60 mL/min/1.7 3 sq meter 01/05/2024 7:41 AM [facility] Comment:eGFR calculated with 2020 CKD-EPI equation. Vegetarian diet, extremely high or low muscle mass, and may affect results. Cystatin C with Glomerular Filtration Rate is a suitable alternative for these patients. ANION GAP 14 8 - 16 mmol/L 01/05/2024 7:41 AM CDT [facility] SERVICES [facility] Blood Collection / Unknown 01/05/2024 3:08 AM CDT 01/05/2024 7:03 AM CDT us Brianda Leblanc MD CHEMISTRY ORDERABLES Final Resul t [facility] SERVICES [facility] CLIA# [id number] [place] [address] documented in this encounter Visit Diagnoses Not on filedocumented in this encounter
--- OUTSIDE RECORDS SUMMARY | 2025-02-22 15:13 | XMS_ITS | Encounter Summary ---
Author Organization [facility] Address [address] [place] [address] Care Team Providers Care Purse Framer Name Role Phone Unavailable Primary Care Provider Unavailabl e Encounter Details Date Type Department Care Team (Late st Contact Info) Description 01/29/[address] [facility] Laboratory Services [address] [place] [address] [place] [address] [place] [address] Social History Tobacco Use Types [...] CBC WITH DIFFERENTIAL (01/29/2024 3:25 AM CDT) WBC 9.7 4.5 - 10.5 K/uL 01/29/2024 7:35 AM CDT [facility]ATORY SERVICES - [facility] RBC 2.96(L) 3.90 - 4.90 M/uL 01/29/2024 7:35 AM CDT [facility] HEMOGLOBIN 8.4(L) 11.8 - 14.8 g/dL 01/29/2024 7:35 AM CDT [facility] HEMATOCRIT 25.5(L) 35.5 - 44.0 % 01/29/2024 7:35 AM CDT [facility]ORATORY SERVICES [facility] MCV 86.4 82.0 - 99.0 fL 01/29/2024 7:35 AM CDT [facility]ORATORY SERVICES [facility] MCH 28.6 27.8 - 34.5 pg 01/29/2024 7:35 AM CDT [facility]ORATORY SERVICES [facility] MCHC 33.1 32.5 - 35.5 g/dL 01/29/2024 7:35 AM CDT [facility]ORATORY SERVICES [facility] RDW 16.5(H) 11.5 - 14.5 % 01/29/2024 7:35 AM CDT [facility]ORATORY SERVICES [facility] PLATELETS 429(H) 160 - 420 K/uL 01/29/2024 7:35 AM CDT [facility]ORATORY SERVICES [facility] MPV 9.1 8.7 - 12.7 fL 01/29/2024 7:35 AM CDT [facility]ORATORY SERVICES [facility] NEUTROPHILS 59 % 01/29/2024 7:35 AM CDT [facility] LABORATORY SERVICES [facility] LYMPHOCYTES 26 % 01/29/2024 7:35 AM CDT [facility]ORATORY SERVICES [facility] MONOCYTES 9 % 01/29/2024 7:35 AM CDT [facility] LABORATORY SERVICES [facility] EOSINOPHILS 6 % 01/29/2024 7:35 AM CDT [facility] LABORATORY SERVICES [facility] BASOPHILS 1 % 01/29/2024 7:35 AM CDT [facility] LABORATORY SERVICES [facility] NEUTROPHIL ABSOLUTE 5.70 1.90 - 7.00 K/uL 01/29/2024 7:35 AM CDT [facility] LABORATORY SERVICES [facility] LYMPHOCYTE ABSOLUTE 2.50 0.70 - 4.50 K/uL 01/29/2024 7:35 AM CDT [facility] LABORATORY SERVICES [facility] MONOCYTE ABSOLUTE 0.80 0.10 - 1.30 K/uL 01/29/2024 7:35 AM CDT [facility] LABORATORY SERVICES [facility] EOSINOPHIL ABSOLUTE 0.60 0.00 - 0.70 K/uL 01/29/2024 7:35 AM CDT [facility] LABORATORY SERVICES [facility] BASOPHILS ABSOLUTE 0.10 0.00 - 0.20 K/uL 01/29/2024 7:35 AM CDT [facility] Blood Collection / Unknown 01/29/2024 3:25 AM CDT 01/29/2024 6:48 AM CDT us Brianda Leblanc MD HEMATOLOGY ORDERABLES Final Resu lt [facility] CLIA# [id number] [place] [address] * (ABNORMAL) BASIC METABOLIC PANEL (01/29/2024 3:25 AM CDT) SODIUM 134(L) 136 - 145 mmol/L 01/29/2024 7:50 AM CDT [facility] POTASSIUM 3.9 3.4 - 5.1 mmol/L 01/29/2024 7:50 AM CDT [facility] CHLORIDE 95(L) 98 - 107 mmol/L 01/29/2024 7:50 AM CDT [facility] CO2 25 22 - 29 mmol/L 01/29/2024 7:50 AM CDT [facility] CALCIUM 10.3 8.6 - 10.4 mg/dL 01/29/2024 7:50 AM CDT [facility] BUN 14 6 - 20 mg/dL 01/29/2024 7:50 AM CDT [facility] CREATININE 0.68 0.51 - 0.95 mg/dL 01/29/2024 7:50 AM T [facility] GLUCOSE 87 74 - 99 mg/dL 01/29/2024 7:50 AM T [facility] GFR >60 >=60 mL/min/1.7 3 sq meter 01/29/2024 7:50 AM T [facility] Comment:eGFR calculated with 2020 CKD-EPI equation. Vegetarian diet, extremely high or low muscle mass, and may affect results. Cystatin C with Glomerular Filtration Rate is a suitable alternative for these patients. ANION GAP 14 8 - 16 mmol/L 01/29/2024 7:50 AM CDT [facility] LABORATORY SERVICES [facility] Blood Collection / Unknown 01/29/2024 3:25 AM CDT 01/29/2024 6:48 AM CDT us Brianda Leblanc MD CHEMISTRY ORDERABLES Final Resul t [facility] LABORATORY SERVICES [facility] CLIA# [id number] [place] [address] documented in this encounter Visit Diagnoses Not on filedocumented in this encounter
--- OUTSIDE RECORDS SUMMARY | 2025-02-22 15:13 | XMS_ITS | Encounter Summary ---
Author Organization [facility] Address [address] [place] [address] Care Team Providers Care Records And Information Manager Name Role Phone Unavailable Primary Care Provider Unavailabl e Encounter Details Date Type Department Care Team (Late st Contact Info) Description 01/01/2024 Lab Requisition [facility] Laboratory Services [address] [place] [address] [place] [address] [place] [address] Social History Tobacco Use Types [...] - 17.0 ug/mL 01/01/2024 11:38 PM CDT [facility] LABORATORY SERVICES [facility] Blood Collection / Unknown 01/01/2024 8:40 PM CDT 01/01/2024 10:33 PM CDT us Brianda Leblanc MD CHEMISTRY ORDERABLES Final Resul t [facility] CLIA# [id number] [place] [address] * (ABNORMAL) CBC WITH DIFFERENTIAL (01/01/2024 8:40 PM CDT) WBC 8.5 4.5 - 10.5 K/uL 01/01/2024 10:43 PM CDT [facility] LABORATORY SERVICES [facility] RBC 2.54(L) 3.90 - 4.90 M/uL 01/01/2024 10:43 PM CDT [facility] LABORATORY [facility] HEMOGLOBIN 7.2(L) 11.8 - 14.8 g/dL 01/01/2024 10:43 PM CDT [facility] LABORATORY [facility] HEMATOCRIT 21.8(L) 35.5 - 44.0 % 01/01/2024 10:43 PM CDT [facility] LABORATORY [facility] MCV 85.8 82.0 - 99.0 fL 01/01/2024 10:43 PM CDT [facility] LABORATORY [facility] MCH 28.5 27.8 - 34.5 pg 01/01/2024 10:43 PM CDT [facility] LABORATORY [facility] MCHC 33.2 32.5 - 35.5 g/dL 01/01/2024 10:43 PM CDT [facility] LABORATORY [facility] RDW 14.8(H) 11.5 - 14.5 % 01/01/2024 10:43 PM CDT [facility] LABORATORY [facility] PLATELETS 292 160 - 420 K/uL 01/01/2024 10:43 PM CDT [facility] LABORATORY [facility] MPV 10.5 8.7 - 12.7 fL 01/01/2024 10:43 PM CDT [facility] LABORATORY SERVICES [facility] NEUTROPHILS 70 % 01/01/2024 10:43 PM CDT [facility] LABORATORY SERVICES [facility] LYMPHOCYTES 17 % 01/01/2024 10:43 PM CDT [facility] LABORATORY [facility] MONOCYTES 7 % 01/01/2024 10:43 PM CDT [facility] LABORATORY SERVICES - [facility] EOSINOPHILS 5 % 01/01/2024 10:43 PM CDT [facility] LABORATORY SERVICES [facility] BASOPHILS 1 % 01/01/2024 10:43 PM CDT [facility] LABORATORY SERVICES [facility] NEUTROPHIL ABSOLUTE 6.00 1.90 - 7.00 K/uL 01/01/2024 10:43 PM CDT [facility] LABORATORY [facility] LYMPHOCYTE ABSOLUTE 1.40 0.70 - 4.50 K/uL 01/01/2024 10:43 PM CDT [facility] LABORATORY SERVICES - [facility] MONOCYTE ABSOLUTE 0.60 0.10 - 1.30 K/uL 01/01/2024 10:43 PM CDT [facility] LABORATORY SERVICES - [facility] EOSINOPHIL ABSOLUTE 0.50 0.00 - 0.70 K/uL 01/01/2024 10:43 PM CDT [facility] LABORATORY SERVICES - [facility] BASOPHILS ABSOLUTE 0.10 0.00 - 0.20 K/uL 01/01/2024 10:43 PM CDT [facility] LABORATORY SERVICES [facility] Blood Collection / Unknown 01/01/2024 8:40 PM CDT 01/01/2024 10:33 PM CDT Brianda Leblanc MD HEMATOLOGY ORDERABLES Final Resu lt [facility] CLIA# [id number] [place] [address] * (ABNORMAL) BASIC METABOLIC PANEL (01/01/2024 8:40 PM CDT) SODIUM 138 136 - 145 mmol/L 01/01/2024 11:04 PM CDT [facility] LABORATORY [facility] POTASSIUM 3.9 3.4 - 5.1 mmol/L 01/01/2024 11:04 PM CDT [facility] LABORATORY [facility] CHLORIDE 99 98 - 107 mmol/L 01/01/2024 11:04 PM CDT [facility] LABORATORY [facility] CO2 28 22 - 29 mmol/L 01/01/2024 11:04 PM CDT [facility] LABORATORY [facility] CALCIUM 8.9 8.6 - 10.4 mg/dL 01/01/2024 11:04 PM CDT [facility] BUN 19 6 - 20 mg/dL 01/01/2024 11:04 PM CDT [facility] CREATININE 0.61 0.51 - 0.95 mg/dL 01/01/2024 11:04 PM CDT [facility] GLUCOSE 130(H) 74 - 99 mg/dL 01/01/2024 11:04 PM CDT [facility] GFR >60 >=60 mL/min/1.7 3 sq meter 01/01/2024 11:04 PM T [facility] Comment:eGFR calculated with 2020 CKD-EPI equation. Vegetarian diet, extremely high or low muscle mass, and may affect results. Cystatin C with Glomerular Filtration Rate is a suitable alternative for these patients. ANION GAP 11 8 - 16 mmol/L 01/01/2024 11:04 PM CDT [facility] Blood Collection / Unknown 01/01/2024 8:40 PM CDT 01/01/2024 10:33 PM CDT us Brianda Leblanc MD CHEMISTRY ORDERABLES Final Resul t [facility] CLIA# [id number] [place] [address] documented in this encounter Visit Diagnoses Not on filedocumented in this encounter
--- OUTSIDE RECORDS SUMMARY | 2025-02-22 15:13 | XMS_ITS | Encounter Summary ---
Author Organization [facility] Address [address] [place] [address] Care Team Providers Care Bunch Maker Name Role Phone Unavailable Primary Care Provider Unavailabl e Encounter Details Date Type Department Care Team (Late st Contact Info) Description 01/07/2024 Lab Requisition [facility] Laboratory Services [id number] [place] [address] [place] [address] [place] [address] Social History Tobacco Use Types [...] CULTURE No growth 01/12/2024 9:54 AM CDT [facility] Blood Collection / Unknown 01/07/2024 2:15 AM CDT 01/07/2024 4:13 AM CDT Brianda Leblanc MD MICROBIOLOGY - GENERAL ORDERABLE S Final Result [facility] CLIA# [id number] [address] [place] [address] * PREPARE RED BLOOD CELLS (01/07/2024 2:00 AM CDT) COMPONENT TYPE [id number] [facility] COMPONENT IDENTIFICATION [id number] [facility] SERVICES - [facility] UNIT ABO O [facility] - [facility] RH POS [facility] SERVICES - [facility] CROSSMATCH Compatible [facility] SERVICES [facility] COMPONENT STATUS Transfused ME [facility]ORY SERVICES - [facility] COMPONENT EXPIRATION DATE/TIME [id number] [facility] COMPONENT CODING SYSTEM [address] [facility] VOLUME, BLOOD PRODUCT 350 [facility] - [facility] 01/07/2024 2:00 AM CDT Brianda Leblanc MD LAB TRANSFUSION ORDERABLES Edite d Result - Final [facility] [employer] [facility] CLIA# [id number] [address] [place] [address] * BLOOD CULTURE (01/07/2024 2:00 AM CDT) BLOOD CULTURE No growth 01/12/2024 9:54 AM CDT [facility] Blood Collection / Unknown 01/07/2024 2:00 AM CDT 01/07/2024 4:13 AM CDT Biranda Leblanc MD MICROBIOLOGY - GENERAL ORDERABLE S Final Result [facility] CLIA# [id number] [address] [place] [address] * TYPE AND SCREEN (01/07/2024 2:00 AM CDT) Pathologist [facility] ANTIBODY SCREEN Negative 01/07/2024 5:05 AM CDT [facility] ABO GROUP O 01/07/2024 5:05 AM CDT [facility] [employer] [facility] RH (D) TYPE Positive 01/07/2024 5:05 AM CDT [facility] Blood Collection / Unknown 01/07/2024 2:00 AM CDT 01/07/2024 4:13 AM CDT Brianda Leblanc MD BLOOD BANK ORDERABLES Edited Res ult - Final [facility] [employer] [facility] CLIA# [id number] [place] [address] * (ABNORMAL) CBC WITH DIFFERENTIAL (01/07/2024 2:00 AM CDT) Pathologist [facility] WBC 9.4 4.5 - 10.5 K/uL 01/07/2024 5:20 AM CDT [facility] [employer] [facility] RBC 2.27(L) 3.90 - 4.90 M/uL 01/07/2024 5:20 AM CDT [facility] [employer] [facility] HEMOGLOBIN 6.5(LL) 11.8 - 14.8 g/dL 01/07/2024 5:20 AM CDT [facility] HEMATOCRIT 20.0(L) 35.5 - 44.0 % 01/07/2024 5:20 AM CDT [facility] MCV 88.0 82.0 - 99.0 fL 01/07/2024 5:20 AM CDT [facility]OR[facility]ORY SERVICES [facility] MCH 28.6 27.8 - 34.5 pg 01/07/2024 5:20 AM CDT [facility] SERVICES [facility] MCHC 32.5 32.5 - 35.5 g/dL 01/07/2024 5:20 AM CDT [facility] SERVICES [facility] RDW 15.7(H) 11.5 - 14.5 % 01/07/2024 5:20 AM CDT [facility] SERVICES [facility] PLATELETS 238 160 - 420 K/uL 01/07/2024 5:20 AM CDT [facility] SERVICES [facility] MPV 10.5 8.7 - 12.7 fL 01/07/2024 5:20 AM CDT [facility] SERVICES - [facility] NEUTROPHILS 74 % 01/07/2024 5:20 AM CDT [facility] SERVICES - [facility] LYMPHOCYTES 12 % 01/07/2024 5:20 AM CDT [facility] SERVICES [facility] MONOCYTES 7 % 01/07/2024 5:20 AM CDT [facility] SERVICES [facility] EOSINOPHILS 6 % 01/07/2024 5:20 AM CDT [facility] SERVICES [facility] BASOPHILS 1 % 01/07/2024 5:20 AM CDT [facility] SERVICES [facility] NEUTROPHIL ABSOLUTE 6.90 1.90 - 7.00 K/uL 01/07/2024 5:20 AM CDT [facility] SERVICES [facility] LYMPHOCYTE ABSOLUTE 1.10 0.70 - 4.50 K/uL 01/07/2024 5:20 AM CDT [facility]ORY SERVICES [facility] MONOCYTE ABSOLUTE 0.70 0.10 - 1.30 K/uL 01/07/2024 5:20 AM CDT [facility] SERVICES [facility] EOSINOPHIL ABSOLUTE 0.60 0.00 - 0.70 K/uL 01/07/2024 5:20 AM CDT [facility] SERVICES [facility] BASOPHILS ABSOLUTE 0.10 0.00 - 0.20 K/uL 01/07/2024 5:20 AM CDT [facility] SERVICES [facility] Blood Collection / Unknown 01/07/2024 2:00 AM CDT 01/07/2024 4:13 AM CDT us Brianda Leblanc MD HEMATOLOGY ORDERABLES Final Resu lt Performing Organization Address City/State/[facility] Co de Phone Number [facility]ORATORY SERVICES [facility]# [id number] [place] [address] documented in this encounter Visit Diagnoses Not on filedocumented in this encounter
--- OUTSIDE RECORDS SUMMARY | 2025-02-22 15:13 | XMS_ITS | Encounter Summary ---
Author Organization [facility] Address [address] [place] [address] Care Team Providers Care Lead Python Developer Name Role Phone Unavailable Primary Care Provider Unavailabl e Encounter Details Date Type Department Care Team (Late st Contact Info) Description 01/03/2024 Lab Requisition [facility] Laboratory Services [id number] [place] [address] [place] [address] [place] [address] Social History Tobacco Use Types [...] Range Estab ug/mL 01/03/2024 7:31 AM CDT [facility] [employer] [facility] Blood Collection / Unknown 01/03/2024 3:08 AM CDT 01/03/2024 7:00 AM CDT us Brianda Leblanc MD CHEMISTRY ORDERABLES Final Resul t [facility] CLIA# [id number] [address] [place] [address] * (ABNORMAL) CBC WITH DIFFERENTIAL (01/03/2024 3:08 AM CDT) [facility] WBC 8.3 4.5 - 10.5 K/uL 01/03/2024 7:36 AM CDT [facility] RBC 2.45(L) 3.90 - 4.90 M/uL 01/03/2024 7:36 AM CDT [facility] LABORATORY [facility] HEMOGLOBIN 6.8(LL) 11.8 - 14.8 g/dL 01/03/2024 7:36 AM CDT [facility]ORAT[facility] Comment:No clot Verified by repeat analysis. HEMATOCRIT 21.1(L) 35.5 - 44.0 % 01/03/2024 7:36 AM CDT [facility] MCV 86.1 82.0 - 99.0 fL 01/03/2024 7:36 AM CDT [facility] MCH 27.6(L) 27.8 - 34.5 pg 01/03/2024 7:36 AM CDT [facility] MCHC 32.0(L) 32.5 - 35.5 g/dL 01/03/2024 7:36 AM CDT [facility] RDW 15.4(H) 11.5 - 14.5 % 01/03/2024 7:36 AM CDT [facility] PLATELETS 311 160 - 420 K/uL 01/03/2024 7:36 AM CDT [facility] MPV 10.1 8.7 - 12.7 fL 01/03/2024 7:36 AM CDT [facility] NEUTROPHILS 67 % 01/03/2024 7:36 AM CDT [facility] LABORATORY [facility] LYMPHOCYTES 21 % 01/03/2024 7:36 AM CDT [facility] MONOCYTES 8 % 01/03/2024 7:36 AM CDT [facility] EOSINOPHILS 5 % 01/03/2024 7:36 AM CDT [facility] BASOPHILS 1 % 01/03/2024 7:36 AM CDT [facility]OR[facility] NEUTROPHIL ABSOLUTE 5.50 1.90 - 7.00 K/uL 01/03/2024 7:36 AM CDT [facility] LYMPHOCYTE ABSOLUTE 1.70 0.70 - 4.50 K/uL 01/03/2024 7:36 AM CDT [facility] MONOCYTE ABSOLUTE 0.60 0.10 - 1.30 K/uL 01/03/2024 7:36 AM CDT [facility] EOSINOPHIL ABSOLUTE 0.40 0.00 - 0.70 K/uL 01/03/2024 7:36 AM CDT [facility] BASOPHILS ABSOLUTE 0.10 0.00 - 0.20 K/uL 01/03/2024 7:36 AM CDT [facility] Blood Collection / Unknown 01/03/2024 3:08 AM CDT 01/03/2024 7:00 AM CDT us Brianda Leblanc MD HEMATOLOGY ORDERABLES Final Resu lt [facility] CLIA# [id number] [address] [place] [address] documented in this encounter Visit Diagnoses Not on filedocumented in this encounter
--- OUTSIDE RECORDS SUMMARY | 2025-02-22 15:13 | XMS_ITS | Encounter Summary ---
Author Organization [facility] Address [address] [place] [address] Care Team Providers Care Personalized Living Manager Nurse Name Role Phone Unavailable Primary Care Provider Unavailabl e Encounter Details Date Type Department Care Team (Late st Contact Info) Description 01/06/2024 Lab Requisition [facility] Laboratory Services [address] [place] [address] [place] [address] [place] [address] Social History Tobacco Use Types [...] DETECTED Not Detected 01/06/2024 4:40 PM CDT [facility] Stool STOOL SPECIMEN / Unknown Collection / Unknown 01/06/2024 12:55 PM CDT 01/06/2024 3:52 PM CDT Narrative [facility] - 01/06/2024 4:40 PM CDT This assay [...] MICROBIOLOGY - GENERAL ORDERABLE S Final Result Performing Organization Address City/State/[facility] Co de Phone Number [facility]ORATORY SERVICES [facility]# [id number] [place] [address] documented in this encounter Visit Diagnoses Not on filedocumented in this encounter
== END 2025-02-22 10:53 | disposition home or self-care (01) ==
LOC: ANHLAB 13:30
PROVIDERS: PCP Family Medicine; Visit Provider Orthopaedic Surgery
DX: M25.011 Hemarthrosis, right shoulder (principal)
CPT/HCPCS: 87070; 87147; 87186; 89051